=== PATIENT | female | born 1955 | race Caucasian/White ===

== ENCOUNTER 2016-09-30 01:45 | Inpatient (IN) | payer OTHER ==
[2016-09-30] MEDS ORDERED: CARDIZEM IV ONE ×2 (01:57→02:42)
[2016-09-30] MEDS ORDERED: ROCEPHIN 1 GM/NS 50 ML IV ONE ×2 (01:57→02:43)
[2016-09-30] MEDS ORDERED: SOLU-MEDROL IV ONE (01:57)
[2016-09-30] MEDS ORDERED: ASPIRIN PO STA (01:58)
--- NOTE | 2016-09-30 01:58 | PROVIDER DOCUMENTATION ---
HPI-Respiratory General - General Chief Complaint: Shortness of Breath Stated Complaint: shortness of breath Time Seen by Provider: 09/30/16 01:45 Source: patient Allergies/Adverse Reactions: Patient Allergies Allergy/AdvReac Type Severity Reaction Status Date / Time morphine Allergy Intermediate NAUSEA/VOMI Verified 09/30/16 01:50 TING Penicillins Allergy Intermediate ITCHING Verified 09/30/16 01:50 doxycycline Allergy Unknown Unknown Verified 09/30/16 01:50 codeine [Codeine] Allergy ITCHING Verified 09/30/16 01:50 levofloxacin [From Levaquin] Allergy ITCHING Verified 09/30/16 01:50 Home Medications: Home Medication List Medication Instructions Recorded Confirmed Last Taken Type Alprazolam 0.5 mg PO BID PRN 12/29/15 08/01/16 08/01/16 History Diltiazem HCl [Cartia Xt] 240 mg PO DAILY 12/29/15 08/01/16 08/01/16 History Esomeprazole Magnesium [Nexium] 40 mg PO DAILY 12/29/15 08/01/16 08/01/16 History Fluticasone/Vilanterol [Breo 1 puff PO DAILY 12/29/15 08/01/16 08/01/16 History Ellipta 100-25 Mcg INH] Hydrocodone/Acetaminophen [[place] 1 each PO Q4-6H PRN PRN 12/29/15 08/01/1608/01 History 5-325 Tablet] Montelukast Sodium [Singulair] 10 mg PO HS 12/29/15 08/01/16 07/31/16 History PRAVAstatin [Pravachol] 20 mg PO QHS 12/29/15 08/01/16 07/31/16 History Sennosides [Senokot] 8.6 mg PO HS 12/29/15 08/01/16 07/31/16 History Budesonide/Formoterol Fumarate 10.2 gm IH BID 08/01/16 08/01/16 08/01/16 History [Symbicort 160-4.5 Mcg Inhaler] Cetirizine HCl [Zyrtec] 10 mg PO QAM 08/01/16 08/01/16 08/01/16 History Lisinopril 10 mg PO QHS 08/09/16 08/09/16 07/31/16 History Albuterol 2.5MG/Ipratrop 0.5MG 3 ml INH RTQ4H #0 neb 08/10/16 Unknown Rx [Duoneb (A & A)] Azithromycin [Zithromax] 500 mg PO DAILY #5 tablet 08/10/16 Unknown Rx Ergocalciferol (Vitamin D2) 50,000 unit PO Q7D capsule 08/10/16 Unknown Rx [Vitamin D] Furosemide [Lasix] 20 mg PO DAILY #0 tablet 08/10/16 Unknown Rx Prednisone 20 mg PO DIRECTED #60 tablet 08/10/16 Unknown Rx - History of Present Illness-Resp Nature of Presenting Problem: 61 year old F presents to the ED with a cc of shortness of breath and coughx3 days ago. PT states that she has gotten worse the past 24 hours. Severity in ED: reports: moderate Onset/Duration: reports: 3 days ago Timing: reports: still present Current Respiratory Medication Therapy: Initiated see nurses note Associated Symptoms: reports: shortness of breath Similar Symptoms Previously?: Yes Recently seen or treated by another doctor?: No Review of Systems - Adult - REVIEW OF SYSTEMS - ADULT Constitutional: denies: chills, fever Eyes: reports: no symptoms reported Ears, Nose, Mouth & Throat: reports: no symptoms reported Cardiovascular: reports: edema. denies: chest pain, palpitations Respiratory: denies: cough, shortness of breath Gastrointestinal: denies: nausea, vomiting Genitourinary: reports: no symptoms reported Musculoskeletal: reports: no symptoms reported Integumentary: reports: no symptoms reported Neurological: reports: no symptoms reported Psychiatric: reports: no symptoms reported Endocrine: reports: no symptoms reported Hematologic/Lymphatic: reports: no symptoms reported Allergic/Immunologic: reports: no symptoms reported All Other Systems: Reviewed and Negative Past History - Adult - PAST MEDICAL HISTORY-ADULT Review of Records: reports: Nursing Assessment Review, Medications Reviewed Major Childhood Illnesses: reports: denies history Cardiovascular: reports: HTN, hyperlipidemia, PAD Respiratory: reports: asthma, COPD (home 02 @ 3L per NC), sleep apnea Gastrointestinal: reports: denies history Obstetrical/Gynecological: reports: denies history Genitourinary: reports: denies history Musculoskeletal: reports: denies history, arthritis Neurological: reports: denies history Endocrine/Immune: reports: denies history Other Conditions: reports: denies history, MRSA - PRIOR SURGERIES/PROCEDURES Surgical/Procedure History: reports: appendectomy, cholecystectomy, cardiac stent, hysterectomy, - PRIOR HOSPITALIZATIONS Prior Hospitalizations: reports: none - IMMUNIZATION STATUS Childhood Immunizations: UTD Flu Vaccine: See Nurse Assessment - FAMILY HISTORY Family History: reviewed, not pertinent - SOCIAL HISTORY Smoking: quit greater than 1 year Substance Use: none/never Alcohol Use Frequency: never Physical Exam-General - PHYSICAL EXAM-ADULT Initial Vital Signs Reviewed: Yes - CONSTITUTIONAL General Appearance: alert, moderate distress, obese, anxious - RESPIRATORY Respiratory: respiratory distress, decreased breath sounds, wheezing ( generalized) - CARDIOVASCULAR Cardiovascular: normal peripheral pulses, no edema, tachycardia - GASTROINTESTINAL (ABDOMEN) Abdominal Exam: non tender, soft - MUSCULOSKELETAL Extremity: pedal edema (3+ bilateral lower extremity edema to knees) - SKIN Integumentary: normal color, normal turgor, warm/dry - PSYCHIATRIC Psych/Mental Status: normal thought content, normal thought process, oriented x 3, anxious Progress - PLAN OF CARE/RESULTS Progress/Plan/Lab Results: plan of care: imaging, labs, medications Orders Category Date Time Status Admit - [facility] Routine AdmDCTranf 09/30/16 02:52 Ordered Activity - Strict Bedrest ORDERED Care 09/30/16 02:52 Active Call Admitting on Arrival AT ADMISSION Care 09/30/16 02:52 Active Cardiac Monitoring DIRECTED Care 09/30/16 01:58 Active Jimenes Cath Insertion ORDERED Care 09/30/16 02:00 Active Neurological Check Q1h Care 09/30/16 02:52 Active Oxygen Therapy- ED Nursing DIRECTED Care 09/30/16 01:58 Active Saline Loc NOW Care 09/30/16 01:58 Active Vital Signs Order Q15M Care 09/30/16 02:52 Active CHEST-PORTABLE [RAD] Stat Exams 09/30/16 01:59 Taken ABG [RESP] Routine Lab 09/30/16 01:45 Completed BLOOD CULTURE [BLDCUL] Stat Lab 09/30/16 02:41 Ordered CBC WITH ELECTRONIC DIFF [HEME] Stat Lab 09/30/16 01:50 Completed CK PROFILE [SP CHEM] Stat Lab 09/30/16 01:50 Completed COMPREHENSIVE METABOLIC PANEL [CHEM] Stat Lab 09/30/16 01:50 Completed D-DIMER PL [COAG] Stat Lab 09/30/16 01:50 Received LACTATE, PLASMA [CHEM] Stat Lab 09/30/16 01:50 Received MAGNESIUM [CHEM] Stat Lab 09/30/16 01:50 Completed PRO B-NATRIURETIC PEPTIDE Stat Lab 09/30/16 01:50 Completed [address]IME WITH INR PL [COAG] Stat Lab 09/30/16 01:[address] [COAG] Stat Lab 09/30/16 01:50 Received TROPONIN T Stat Lab 09/30/16 01:[address] W/POSS RFLX CULT [URINALYSIS] Stat Lab 09/30/16 02:25 Received 0.9% Sodium Chloride Inj [Ns] 1,000 ml Med 09/30/16 02:42 Discontinued .ROUTE As Directed Acetaminophen [Tylenol] Med 09/30/16 02:42 Discontinued 1,000 mg PO NOW ONE Acetaminophen [Tylenol] Med 09/30/16 02:52 Active 650 mg PO Q6H PRN PRN Aspirin Med 09/30/16 01:58 Discontinued 325 mg PO STAT STA CefTRIAXONE 1 GM/NS [Rocephin 1 gm/Ns] 50 ml Med 09/30/16 01:59 Discontinued .ROUTE As Directed CefTRIAXONE 1 GM/NS [Rocephin 1 gm/Ns] 50 ml Med 09/30/16 01:57 Discontinued IV NOW CefTRIAXONE 1 GM/NS [Rocephin 1 gm/Ns] 50 ml Med 09/30/16 02:43 Active IV NOW Diltiazem 100 mg/Ns [Cardizem 100 mg/Ns] 100 ml Med 09/30/16 02:45 Active IV Per Protocol Diltiazem [Cardizem] Med 09/30/16 02:42 Discontinued 10 mg IV NOW ONE Diltiazem [Cardizem] Med 09/30/16 01:57 Discontinued 15 mg IV NOW ONE Diltiazem [Cardizem] Med 09/30/16 02:00 Discontinued 25 mg .ROUTE .STK-MED ONE Furosemide [Lasix] Med 09/30/16 01:59 Discontinued 40 mg IV NOW ONE Methylprednisolone Sod Succ [Solu-Medrol] Med 09/30/16 01:59 Discontinued 125 mg .ROUTE .STK-MED ONE Methylprednisolone Sod Succ [Solu-Medrol] Med 09/30/16 01:57 Discontinued 125 mg IV NOW ONE Ondansetron [Zofran] Med 09/30/16 02:52 Discontinued 4 mg IV NOW ONE Ondansetron [Zofran] Med 09/30/16 02:52 Active 4 mg IV Q4H PRN PRN BIPAP Stat Oth 09/30/16 02:42 Active Telemetry [OM.EQ] Routine Oth 09/30/16 02:52 Active EKG [EKG] Stat Ther 09/30/16 01:58 Draft Transfer/Admit Order [TRANSFER] Routine Transfer 09/30/16 02:51 Ordered Laboratory Tests 09/30/16 09/30/16 09/30/16 01:45 01:50 01:50 WBC RBC Hgb Hct MCV MCH MCHC RDW Std Deviation Plt Count MPV Immature Gran % (Auto) Neut % (Auto) Lymph % (Auto) Tift % (Auto) Eos % (Auto) Baso % (Auto) Immature Gran # (Auto) Neut # (Auto) Lymph # (Auto) Tift # (Auto) Eos # (Auto) Baso # (Auto) Specimen Type ARTERIAL Sample Site L BRACHIAL pH 7.36 pCO2 48 H pO2 52 L HCO3 25.8 Base Excess 1.3 Oxyhemoglobin 85.9 L* ABG O2 Sat (Calculated) 11.1 L ABG O2 Saturation 89.4 L ABG Carboxyhemoglobin 2.60 H ABG Methemoglobin 1.3 Jame Test NO A-a O2 Difference 173.0 Total Hemoglobin 9.2 L Lactate 1.30 Liter Flow 5.0 Blood Gas Modality CANNULA FiO2 % 40.0 Sodium 147 H Potassium 5.2 H Chloride 104 Carbon Dioxide 25 Anion Gap 18 BUN 24 H Creatinine 1.3 H Estimated GFR/1.73 m2 42 BUN/Creatinine Ratio 18 Glucose 113 H Calculated Osmolality 297 Calcium 10.0 Magnesium 2.1 Total Bilirubin 0.40 AST 42 H ALT 45 H Alkaline Phosphatase 91 Creatine Kinase 107 Troponin T 0.039 Zeg-B-Vkvxizetqom Pept Total Protein 7.0 Albumin 4.7 Globulin 2.0 Albumin/Globulin Ratio 2.0 09/30/16 09/30/16 01:50 01:50 WBC 13.32 H RBC 3.63 L Hgb 9.5 L Hct 33.5 L MCV 92.3 MCH 26.2 L MCHC 28.4 L RDW Std Deviation 22.1 H Plt Count 245 MPV 9.1 Immature Gran % (Auto) 0.4 Neut % (Auto) 71.7 Lymph % (Auto) 16.5 L Tift % (Auto) 10.1 H Eos % (Auto) 1.1 Baso % (Auto) 0.2 Immature Gran # (Auto) 0.05 H Neut # (Auto) 9.57 H Lymph # (Auto) 2.20 Tift # (Auto) 1.34 H Eos # (Auto) 0.14 Baso # (Auto) 0.02 Specimen Type Sample Site pH pCO2 pO2 HCO3 Base Excess Oxyhemoglobin ABG O2 Sat (Calculated) ABG O2 Saturation ABG Carboxyhemoglobin ABG Methemoglobin Jame Test A-a O2 Difference Total Hemoglobin Lactate Liter Flow Blood Gas Modality FiO2 % Sodium Potassium Chloride Carbon Dioxide Anion Gap BUN Creatinine Estimated GFR/1.73 m2 BUN/Creatinine Ratio Glucose Calculated Osmolality Calcium Magnesium Total Bilirubin AST ALT Alkaline Phosphatase Creatine Kinase Troponin T Wjv-C-Ksqaqtqkgya Pept 509 H Total Protein Albumin Globulin Albumin/Globulin Ratio Vital Signs - 24 hr 09/30/16 09/30/16 09/30/16 01:47 01:53 02:36 Temperature 100.8 F H Pulse Rate 152 H 149 H 140 H Respiratory 35 H 22 33 H Rate Blood Pressure 141/69 141/69 107/81 O2 Sat by Pulse 81 L 993 H 100 Oximetry 09/30/16 09/30/16 02:45 02:47 Temperature Pulse Rate 138 H Respiratory 32 H Rate Blood Pressure 92/74 O2 Sat by Pulse 100 93 L Oximetry Pt/Family given results. Pt will be admitted to the Hospitalist Group. PT/ Family in agreement with plan of care. - EKG 1 Time of EKG reading by physician:: 01:46 EKG Read and Signed by:: Bk Corona EKG Interpretation (*Must complete 3 of following elements*): Abnormal Rate: 149 Rhythm: sinus tachycardia QRS: other (low voltage QRS) - XRAY 1 XRAY Study: Chest Impression: Abnormal XRAY Interpretation: COPD changes, early LLL infiltrate: Dr. Corona- [facility] - CONSULTS/PCP/HOSPITALIST Notification #1 *Consult/PCP/Hospitalist*: Dr. Rucker- Hospitalist DMM Time Discussed: 02:47 Consult Disposition: Admit Departure - Departure Time of Disposition Order: 02:56 DIAGNOSIS: Hypoxemia, Tachycardia, COPD exacerbation Pneumonia Qualifiers: Pneumonia type: due to unspecified organism Laterality: left Lung location: lower lobe of lung Qualified Code(s): J18.1 - Lobar pneumonia, unspecified organism Disposition: ADMITTED INPATIENT 09 Certified Medical Emergency: Emergent Condition: Stable Referrals: None,PCP [Primary Care Provider] - Attestation - Scribe Verification/Attestation Scribe:: Lisha Foley Acting as Scribe for:: Bk Corona Scribe documention review:: This chart was documented by a scribe and accurately reflects the service the provider performed and the decisions made by the provider. Physician Attestation - Physician Attestation I, the provider, attest to the following statement:: Bk Corona Physician documentation Attestation:: This documentation recorded by the scribe accurately reflects the service I personally performed and the decisions made by me.
[2016-09-30] MEDS ORDERED: ROCEPHIN 1 GM/NS 50 ML ONE (01:59)
[2016-09-30] MEDS ORDERED: LASIX IV ONE (01:59)
[2016-09-30] MEDS ORDERED: SOLU-MEDROL ONE (01:59)
[2016-09-30] MEDS ORDERED: CARDIZEM ONE (02:00)
[2016-09-30 02:23] LABS: BE 1.3 mmoll (-3.0-3.0); BLOOD TYPE ARTERIAL; DRAW SITE L BRACHIAL; METHB 1.3 % (0.0-1.5); O2(CT) 11.1 mL/dL (15.0-23.0); PCO2(98.6) 48 mmHg (35-45); PO2(98.6) 52 mmHg (60-100); SAMPLE BLOOD; SAO2 89.4 % (95.0-100.0); THB 9.2 g/dL (11.5-17.4); pH(98.6) 7.36 (7.35-7.45)
[2016-09-30 02:29] LABS: ALLEN TEST NO; MODALITY CANNULA
--- NOTE | 2016-09-30 02:31 | EKG Report ---
Test Performed on : 09/30/2016 01:46:13 AM Test Reason : CHEST PAIN Blood Pressure : / mmHG Vent. Rate : 149 BPM Atrial Rate : 149 BPM P-R Int : 134 ms QRS Dur : 070 ms QT Int : 256 ms P-R-T Axes : 039 081 044 degrees QTc Int : 403 ms Sinus tachycardia. Low voltage QRS Septal infarct , age undetermined Abnormal ECG When compared with ECG of 02-AUG-2016 06:22, Vent. rate has increased BY [address] now depressed in Anterior leads Unconfirmed Result
[2016-09-30 02:36] LABS: ALBUMIN 4.7 g/dL (3.5-5.0); MAGNESIUM 2.1 mg/dL (1.5-2.7); POTASSIUM 5.2 mmol/L (3.5-5.1); TOTAL BILIRUBIN 0.4 mg/dL (0.20-1.00)
[2016-09-30 02:39] LABS: BASO% 0.2 % (0.0-0.8); EOS# 0.14 X1000 (0.0-0.7); EOS% 1.1 % (0.0-10.0); HEMATOCRIT 33.5 % (37.0-47.0); HEMOGLOBIN 9.5 g/dL (12.0-16.0); IMM GRAN# 0.05 X1000 (0.0-0.04); IMM GRAN% 0.4 % (0.0-0.5); LYMPH% 16.5 % (20.5-51.1); MCH 26.2 PG (27-31); MCHC 28.4 g/dL (33-37); MCV 92.3 FL (81-99); MONO# 1.34 X1000 (0.11-0.59); MONO% 10.1 % (1.7-9.3); MPV 9.1 FL (7.4-10.4); NEUT% 71.7 % (42.2-75.2); PLT 245 X1000 (130-400); RBC 3.63 XMIL (4.2-5.4)
[2016-09-30 02:40] LABS: MANUAL DIFF NEEDED? NO
[2016-09-30] MEDS ORDERED: NS 2,000 ML ONE (02:42)
[2016-09-30] MEDS ORDERED: TYLENOL PO ONE (02:42)
[2016-09-30] MEDS ORDERED: CARDIZEM 100 MG/NS 100 ML IV SCH (02:45)
[2016-09-30] MEDS ORDERED: ZOFRAN IV ONE (02:52)
[2016-09-30] MEDS ORDERED: ZOFRAN IV PRN (02:52)
[2016-09-30] MEDS ORDERED: TYLENOL PO PRN (02:52)
[2016-09-30 02:55] LABS: URINE SOURCE CATH
[2016-09-30] MEDS ORDERED: NS 500 ML IV ONE (03:01)
[2016-09-30 03:14] LABS: BILIRUBIN URINE NEGATIVE (NEGATIVE); BLOOD URINE 2+ (NEGATIVE); CLARITY CLEAR (CLEAR); COLOR YELLOW; GLUCOSE URINE NEGATIVE (NEGATIVE); LEUKOCYTES URINE TRACE (NEGATIVE); NITRITE URINE NEGATIVE (NEGATIVE); PROTEIN URINE TRACE mg/dL (NEGATIVE); SP GRAVITY URINE 1.005; UROBILINOGEN URINE NORMAL
[2016-09-30 03:15] LABS: URINE CULTURE PL NEEDED? YES; URINE EPITHELIAL CELLS <10 /HPF (<10); URINE WBC <10 /HPF (<10)
[2016-09-30] MEDS ORDERED: NS 1,000 ML IV ONE ×5 (03:32→09:26)
[2016-09-30 03:59] LABS: INR 0.96 (0.86-1.15); PROTIME 13.1 Seconds (12.1-15.5)
[2016-09-30 04:00] LABS: PTT PL 29.2 Seconds (22.6-43.9)
[2016-09-30] MEDS ORDERED: NEO-SYNEPHRINE ONE (05:03)
[2016-09-30] MEDS ORDERED: NS 250 ML ONE (05:03)
[2016-09-30] MEDS ORDERED: NS 1,000 ML ONE (05:06)
[2016-09-30] MEDS ORDERED: LOVENOX 1 MG/KG SUBQ ONE (05:08)
[2016-09-30] MEDS ORDERED: NEO-SYNEPHRINE 50 MG in NS 250 ML IV SCH (05:15)
[2016-09-30] MEDS ORDERED: LOVENOX ONE (05:23)
[2016-09-30] MEDS ORDERED: LOVENOX SUBQ ONE (06:00)
[2016-09-30] MEDS ORDERED: DUONEB (A & A) INH PRN (06:20)
[2016-09-30 06:26] LABS: ALLEN TEST YES; BE -4.4 mmoll (-3.0-3.0); BLOOD TYPE ARTERIAL; DRAW SITE R RADIAL; METHB 1.4 % (0.0-1.5); O2(CT) 10.5 mL/dL (15.0-23.0); PCO2(98.6) 47 mmHg (35-45); PO2(98.6) 77 mmHg (60-100); SAMPLE BLOOD; SAO2 97.1 % (95.0-100.0); THB 7.8 g/dL (11.5-17.4); pH(98.6) 7.28 (7.35-7.45)
[2016-09-30 06:27] LABS: MODALITY BI PAP
[2016-09-30] MEDS ORDERED: MAXIPIME 1 GM/NS 50 ML IV SCH (06:30)
[2016-09-30] MEDS ORDERED: VANCOMYCIN IV PER PHARMACY MISC SCH (06:30)
[2016-09-30] MEDS: DUONEB (A & A) INH SCH ×5 (08:00→22:35)
[2016-09-30] MEDS ORDERED: LOVENOX 1 MG/KG SUBQ SCH (08:15)
[2016-09-30 08:26] LABS: HEMATOCRIT 27.4 % (37.0-47.0); HEMOGLOBIN 7.7 g/dL (12.0-16.0); MCH 26.2 PG (27-31); MCHC 28.1 g/dL (33-37); MCV 93.2 FL (81-99); RBC 2.94 XMIL (4.2-5.4)
[2016-09-30 08:41] LABS: CALCIUM 8.4 mg/dL (8.8-10.2); MAGNESIUM 1.9 mg/dL (1.5-2.7)
[2016-09-30 09:13] LABS: CK INDEX 0.9 (0.0-2.5); CK-MB 2.44 ng/mL (0.0-5.0)
[2016-09-30] MEDS: MERREM 1 GM in NS 50 ML IV SCH ×2 (09:51→17:12)
[2016-09-30] MEDS: SODIUM CHLORIDE 0.9% INJ SCH (09:51)
[2016-09-30] MEDS: SOLU-MEDROL IV SCH ×2 (09:51→17:12)
[2016-09-30] MEDS: PROTONIX IV SCH (09:51)
--- NOTE | 2016-09-30 10:21 | Diag Imaging Result Document ---
PROCEDURE NAME: CHEST-PORTABLE - 09/30/2016 PORTABLE CHEST X-RAY: COMPARISON: 08/10/2016. FINDINGS: There is some minor bibasilar linear atelectasis. Otherwise, no significant infiltrates. Heart size and pulmonary vascularity is grossly normal. IMPRESSION: Minor bibasilar linear atelectasis.
[2016-09-30] MEDS: VANCOMYCIN 1.5 GM in NS 250 ML IV SCH (10:30)
[2016-09-30] MEDS: ZOFRAN IV PRN ×2 (13:48→19:33)
--- NOTE | 2016-09-30 14:04 | HISTORY AND PHYSICAL ---
CHIEF COMPLAINT: Shortness of breath. HISTORY OF PRESENT ILLNESS: Mrs. Mendoza is a 61-year-old, female, well known to our service with a history of COPD and chronic respiratory failure with multiple admissions to our facility with COPD exacerbation, last discharged on 08/10/2016. At that time, she was discharged with a COPD exacerbation and was sent to rehab for 21 days which was approximately 1 week ago when she was discharged from that facility. She states that since that time, she has had increasing shortness of breath and on Sunday of last week she started having cough and subjective chills but no fever. Her shortness of breath worsened to the point where she came to the ER at [facility] early this morning. When she first got to the ER at [facility] she was noted to be quite hypoxic with a heart rate of 152 and a temperature of 100.8 degrees. Initial ABG was consistent with respiratory acidosis and hypoxia. She was placed on BiPAP and during that time she had mild drop in her blood pressure which has required Priyank-Synephrine to maintain adequate perfusion. She has since been transferred to our facility to the ICU where she is currently hemodynamically stable on BiPAP. She complains of shortness of breath but no other real complaints at this time. PAST MEDICAL HISTORY: 1. COPD. 2. Chronic respiratory failure on home O2, 4 L. 3. History of DVT. 4. Peripheral artery disease. 5. Obstructive sleep apnea. 6. Obesity. 7. Hypertension. 8. Hyperlipidemia. PAST SURGICAL HISTORY: Femoral-popliteal bypass, appendectomy, cholecystectomy, hysterectomy, C- section. SOCIAL HISTORY: Patient quit smoking around 3 and half years ago. She denies any current tobacco, alcohol or drug use. Currently lives alone. Was recently discharged from a local rehab facility. FAMILY HISTORY: Noncontributory. ALLERGIES: To morphine, penicillin, doxycycline, codeine and Levaquin. HOME MEDICATIONS: Symbicort 160/4.5 mcg inhaled twice a day. Xanax 0.5 mg p.o. t.i.d. p.r.n. Lisinopril 10 mg p.o. at bedtime. Zyrtec 10 mg p.o. every morning. Cardia XT 240 mg p.o. daily. Buffered aspirin 81 mg at bedtime. Nexium 40 mg daily. Lasix 20 mg p.o. daily. Singulair 10 mg at bedtime. [place] 5 every 4 hours as needed for pain. Prednisone 10 mg daily. Pravachol 20 mg at bedtime. Breo Ellipta 100/25 mcg inhaled daily. Senokot 1 tab at night. REVIEW OF SYSTEMS: A 12 point review of systems obtained and found to be negative with the exception of the HPI. PHYSICAL EXAMINATION: VITAL SIGNS: Blood pressure is 113/60, heart rate is 91, respiratory rate is 22, O2 saturation 100% on BiPAP. Temperature is 97.8. GENERAL: This is a morbidly obese, female, lying in hospital bed in no acute distress. NEUROLOGIC: The patient is somewhat lethargic but opens her eyes to verbal stimulus easily. She follows commands without focal deficits. HEENT: Head atraumatic, normocephalic. Pupils are equal, round, and reactive to light. Oral mucosa is moist. Trachea is midline. CHEST: Diminished with wheezes bilaterally. CV: Regular rate and rhythm. S1, S2 is noted. GI: Soft, nondistended, nontender. Bowel sounds positive. EXTREMITIES: Trace edema. Pulses are palpable. Diminished bilaterally. DIAGNOSTIC DATA: EKG sinus tach without acute ST or T abnormalities. WBC 15.21, hemoglobin 7.7, hematocrit 27.4, platelet count 212,000. PT 13.1, INR 0.96. D-dimer 2.02. ABG on 50% BiPAP, pH 7.28, CO2 47, O2 77. Bicarb 21.3, lactate 0.4. Sodium 143, potassium 5, chloride 108, CO2 20, anion gap 15. BUN 24, creatinine 1.2. Glucose 114. AST 42, ALT 45, CK 265. Troponin negative. ProBNP 509. Protein 7, albumin 4.7, lactate is less than 0.2. UA shows moderate ketones and 2+ blood with trace WBCs and 1+ bacteria. ASSESSMENT AND PLAN: 1. Acute on chronic hypoxic respiratory failure: Likely secondary to COPD exacerbation. I would not rule out PE nor pneumonia. We are going to treat for PE and pneumonia and get a CTA of her chest hopefully later today when her creatinine comes down. In the meantime, we will also treat with steroids, nebulizers and aggressive pulmonary toilet. We will also consult Pulmonology. 2. Chronic obstructive pulmonary disease exacerbation: As above. 3. Healthcare-acquired pneumonia: As above. We will make sure and cover MRSA with vancomycin and other broad-spectrum antibiotics. 4. Sepsis: As above. We will maintain adequate perfusion pressure with vasopressors and IV fluids, her lactic acid is within normal limits. 5. Elevated D-dimer in a patient with a history of deep vein thrombosis: Her creatinine is a little bit high right now to do a CTA. We will hydrate and recheck a BMP at 2 p.m. In the meantime we will continue with aggressive IV fluid hydration, avoid any nephrotoxic medications and go ahead and continue Lovenox that was started in the ER, at 1 mg/kg every 12 hours. 6. Mild renal insufficiency: Continue IV fluids. 7. GI prophylaxis with Protonix. Deep vein thrombosis prophylaxis with Lovenox. 8. Critical care time with this patient is greater than 45 minutes. Dictated by NELLY Powers for Osman Jeffries MD
[2016-09-30 14:29] LABS: CALCIUM 7.5 mg/dL (8.8-10.2); POTASSIUM 5.1 mmol/L (3.5-5.1)
--- NOTE | 2016-09-30 16:18 | ECHO REPORT ---
ORDER DATE: 09/30/2016 INTERPRETING PHYSICIAN: Dr. Santacruz CLINICAL INDICATIONS: [id number]-[id number]-old female. Study was done for evaluation of respiratory failure. M-MODE MEASUREMENTS: Right ventricle: 3.2 cm. Left ventricle end diastole: 5.2 cm. Left ventricle end systole: 3.4 cm. Posterior wall: 0.8 cm. Interventricular septum: 0.8 cm. Left atrium: 3.5 cm. Aortic root: 3.3 cm. SUMMARY OF 2-DIMENSIONAL IMAGING: Left ventricular function is normal, ejection fraction of 64%. Ventricular chamber is not dilated. There is no ventricular hypertrophy. Right ventricle appears to be normal. It could be borderline enlarged. Pulmonic valve looks normal. Color flow mapping indicates mild degree of regurgitation. The inferior vena cava is at the upper limits of normal. Tricuspid valve shows a moderate degree of regurgitation. The pulmonary pressure is estimated at 47 mmHg. Mitral valve shows trace regurgitation. Pulse wave Doppler of mitral inflow shows minimal reversal of the E and the A wave. Tissue Doppler of septal and lateral mitral annulus averages 13 cm. The pulse wave Doppler of pulmonary venous flow is normal. There is no diastolic dysfunction. Aortic valve looks normal. There is no stenosis, no regurgitation. There is no pericardial effusion, masses, or thrombus. SUMMARY: In summary, this study showed: 1. Excellent left ventricular systolic function. 2. No evidence of left ventricular diastolic dysfunction. 3. No evidence of significant valvular abnormality except for mild to moderate degree of tricuspid regurgitation. Pulmonary systolic pressure appears to be elevated at 47 mmHg. 4. No pericardial effusion, masses, or thrombus noted. 5. Clinical correlation is recommended. [facility]
[2016-09-30] MEDS: LOVENOX SUBQ SCH (17:12)
--- NOTE | 2016-09-30 17:57 | CONSULTATION ---
DATE OF CONSULTATION: 09/30/2016 DIAGNOSES: 1. Chronic obstructive pulmonary disease stage IV. 2. Obstructive sleep apnea. 3. Morbid obesity. 4. Dehydration. 5. Pulmonary hypertension. 6. Respiratory failure. RECOMMENDATIONS: She will be placed on Proventil and Atrovent bronchodilators. Agree with the broad-spectrum antibiotics. I agree with the Lovenox. I will try to obtain a CT angiogram at a more opportune time when the respiratory status is stable. We will follow closely along with you. HISTORY: This very unfortunate 61-year-old female has a significant known history of COPD, peripheral vascular disease. She presented to our emergency room with the onset of wheezing, cough, shortness of breath and she developed respiratory failure. Subsequent to this, she is placed in the ICU on BiPAP and I was consulted to assist in her care. PAST MEDICAL HISTORY: Is positive for COPD, chronic respiratory failure, DVT, morbid obesity, hypertension as well as peripheral vascular disease. SOCIALLY: She is a smoker of approximately 40 pack year history having quit approximately 3 years ago. She lives alone. FAMILY HISTORY: Positive for ischemic heart disease in her father. Hypertension in her mother. REVIEW OF SYSTEMS: Except for the features mentioned above are negative for weight loss, night sweats, weakness or anorexia. No ENT symptoms of odynophagia, dysphagia, epistaxis or painful swallowing. No eye symptoms of blindness, blurring or diplopia. No other cardiac or pulmonary symptoms other than mentioned. No nausea, vomiting, constipation, diarrhea. No hematuria, polyuria, nocturia, dysuria. No joint or muscle pain, stiffness, swelling. No skin rashes, itching, bruises. No seizures, loss of consciousness or paralysis except features mentioned above. All of the symptoms on the review of systems are negative. PHYSICAL EXAM: Shows a blood pressure of 116/66 with a pulse 79, respirations 20, temp 97.2 degrees.HEENT: Exam reveals no thyromegaly or adenopathy. Pupils are equal and reactive. Extraocular muscles are intact. Neck: Supple. No bruits. No thyromegaly. No JVD. Chest: Reveals bilateral equal breath sounds with rhonchi and crackles. There are symmetrical excursions. Cardiac Exam: Reveals a regular rhythm. Abdomen: Soft. Skin: Warm and dry. There is 2+ edema. Neurologically: Grossly nonfocal. LABORATORY DATA: The sodium is 149, potassium 5.1, chloride 111, CO2 22, BUN 24, creatinine 1.4, [place] [address], hemoglobin 7.7, hematocrit of 27.4, and platelets of 212,000. The ABG is 7.28 pH, 47 CO2 and a 77 O2.
[2016-09-30 18:26] LABS: CK INDEX 0.7 (0.0-2.5); CK-MB 3.35 ng/mL (0.0-5.0)
[2016-09-30] MEDS: NORCO-5 PO PRN (21:29)
[2016-10-01] MEDS: MERREM 1 GM in NS 50 ML IV SCH ×3 (02:00→16:38)
[2016-10-01] MEDS: SOLU-MEDROL IV SCH ×3 (02:16→17:13)
[2016-10-01] MEDS: DUONEB (A & A) INH SCH ×6 (02:30→23:25)
[2016-10-01 03:05] LABS: CK INDEX 0.7 (0.0-2.5); CK-MB 3.66 ng/mL (0.0-5.0)
[2016-10-01] MEDS: NORCO-5 PO PRN ×3 (03:59→16:37)
[2016-10-01 04:25] LABS: ALLEN TEST YES; BLOOD TYPE ARTERIAL; DRAW SITE R RADIAL; METHB 0.8 % (0.0-1.5); O2(CT) 10.7 mL/dL (15.0-23.0); PO2(98.6) 94 mmHg (60-100); SAMPLE BLOOD; SAO2 99.1 % (95.0-100.0); THB 7.7 g/dL (11.5-17.4); pH(98.6) 7.26 (7.35-7.45)
[2016-10-01 04:26] LABS: MODALITY BI PAP; PCO2(98.6) 51 mmHg (35-45)
[2016-10-01] MEDS: LOVENOX SUBQ SCH (05:35)
[2016-10-01 06:18] LABS: HEMATOCRIT 27.9 % (37.0-47.0); MCH 26.7 PG (27-31); MCHC 28.7 g/dL (33-37); MPV 9.8 FL (7.4-10.4)
[2016-10-01 06:27] LABS: AGAP 20; BUN 23 mg/dL (8-22); CHLORIDE 111 mmol/L (98-107); COSMO 297; POTASSIUM 5.4 mmol/L (3.5-5.1); SODIUM 148 mmol/L (136-145); TCO2 17 mmol/L (25-35)
[2016-10-01] MEDS: ZOFRAN IV PRN ×3 (06:45→20:54)
[2016-10-01] MEDS ORDERED: POTASSIUM PHOSPHATE 21 MMOL in NS 250 ML IV ONE (08:01)
[2016-10-01] MEDS: PROTONIX IV SCH (08:20)
[2016-10-01] MEDS: SODIUM CHLORIDE 0.9% INJ SCH (08:20)
[2016-10-01] MEDS ORDERED: NS 1,000 ML IV SCH (08:45)
[2016-10-01] MEDS: XANAX PO PRN ×2 (09:18→20:54)
--- NOTE | 2016-10-01 09:45 | Diag Imaging Result Document ---
PROCEDURE NAME: ANGIOGRAM/PULMONARY ARTERIES - 10/01/2016 CT PULMONARY ANGIOGRAM WITH INTRAVENOUS CONTRAST, 10/01/2016: COMPARISON: Numerous prior chest x-rays. TECHNIQUE: Axial CT images of the chest were obtained after administering intravenous contrast. Coronal MIP images were generated. FINDINGS: There is no evidence of pulmonary embolism. Heart and great vessels are normal. Upper abdominal images are unremarkable. There is severely advanced COPD. There is some trace patchy atelectasis or scarring in the lung bases particularly in the right lower lobe. Heavy degenerative changes of the spine. No acute bony lesions. IMPRESSION: Severe COPD with some mild pulmonary scarring. No definite acute disease.
--- NOTE | 2016-10-01 11:31 | Diag Imaging Result Document ---
PROCEDURE NAME: CHEST-PORTABLE - 10/01/2016 PORTABLE CHEST X-RAY, 10/01/2016: COMPARISON: 09/30/2016. FINDINGS: There is some patchy atelectasis or scarring in the lung bases. No definite infiltrates. Heart size and pulmonary vascularity is normal. IMPRESSION: No change from prior.
--- NOTE | 2016-10-01 11:58 | PROGRESS NOTE ---
DATE: 10/01/2016 SUBJECTIVE: This patient states that she is feeling much better. She is hungry and we started this patient on a clear liquid diet for now. We will advance the diet if she tolerates this. She is not complaining of shortness of breath at this moment. We will continue monitoring in the ICU for at least 1 more day. OBJECTIVE: Vital Signs: Temperature 97.1 degrees, pulse 113, respiratory rate 26, blood pressure 109/64, oxygen saturation 98 on 40% Venturi mask. HEENT: Head normocephalic. No trauma. PERRLA. Neck: Supple. No JVD. No masses. Central trachea. Cardiovascular: RRR. No murmurs. Tachycardic. Chest: Bilateral scattered rhonchi with bilateral expiratory wheezing. Prolonged expiatory phase. Decreased air entry globally. Abdomen: Soft, nontender, nondistended. No hepatosplenomegaly. Obese. Extremities: Trace edema. No clubbing. No cyanosis. Neurological: The patient is alert and oriented x3. No focal neurological deficits. LABORATORY: WBC 11.5, hemoglobin 8, hematocrit 27.9, platelets 157,000. Sodium 148, potassium 5.4, chloride 111, bicarbonate 17, BUN 23, creatinine 0.9, glucose 80, calcium 8. Troponins negative x2. ASSESSMENT AND PLAN: 1. Acute on chronic respiratory failure, likely secondary to chronic obstructive pulmonary disease exacerbation. We are going to rule out pulmonary embolism. Pending CT angiogram. That probably will be done today. We will hydrate this patient before and after the CT angiogram. I will continue with the same treatment right now. She is on steroids, nebulizers, and aggressive pulmonary toilet. Pulmonary department is following this patient. 2. Chronic obstructive pulmonary disease exacerbation. As above. 3. Healthcare-acquired pneumonia. We will continue with broad spectrum antibiotics. This patient is getting better. 4. Sepsis, likely secondary to infectious process. This patient is not on pressors at this moment. I will continue IV fluids for now. Just get the CT of the chest. We will continue to monitor. 5. Elevated D-dimer in a patient with a history of deep vein thrombosis. The creatinine is normal today. We will get the CT angiogram. This patient is already on Lovenox twice a day. Pulmonary department is following this patient. 6. Acute kidney injury, resolved. 7. Gastrointestinal prophylaxis. Continue Protonix. Deep vein thrombosis prophylaxis. This patient is on Lovenox. CRITICAL CARE TIME: 40 minutes.
[2016-10-01] MEDS: HUMULIN R SUBQ SCH ×2 (15:17→20:52)
[2016-10-01] MEDS: VANCOMYCIN 1.5 GM in NS 250 ML IV SCH (21:00)
[2016-10-02] MEDS: MERREM 1 GM in NS 50 ML IV SCH ×3 (01:07→18:07)
[2016-10-02] MEDS: NORCO-5 PO PRN ×3 (01:07→15:25)
[2016-10-02] MEDS: SOLU-MEDROL IV SCH ×3 (01:08→18:07)
[2016-10-02] MEDS: DUONEB (A & A) INH SCH ×6 (03:25→23:17)
[2016-10-02 04:46] LABS: ALLEN TEST YES; BLOOD TYPE ARTERIAL; DRAW SITE R RADIAL; METHB 1.5 % (0.0-1.5); O2(CT) 11.5 mL/dL (15.0-23.0); PO2(98.6) 122 mmHg (60-100); SAMPLE BLOOD; SAO2 98.8 % (95.0-100.0); SRATE 10 BPM; THB 8.3 g/dL (11.5-17.4)
[2016-10-02 04:47] LABS: MODALITY BI PAP; PCO2(98.6) 52 mmHg (35-45)
[2016-10-02] MEDS: ZOFRAN IV PRN ×2 (04:53→19:45)
[2016-10-02 05:42] LABS: HEMOGLOBIN 7.7 g/dL (12.0-16.0); MCH 26.8 PG (27-31); MCHC 28.5 g/dL (33-37); MCV 94.1 FL (81-99); MPV 9.2 FL (7.4-10.4); RBC 2.87 XMIL (4.2-5.4)
[2016-10-02 06:00] LABS: AGAP 14; BUN 19 mg/dL (8-22); CALCIUM 8.2 mg/dL (8.8-10.2); CHLORIDE 110 mmol/L (98-107); COSMO 295; SODIUM 146 mmol/L (136-145); TCO2 22 mmol/L (25-35)
[2016-10-02] MEDS: HUMULIN R SUBQ SCH ×4 (06:25→20:57)
--- NOTE | 2016-10-02 07:44 | Diag Imaging Result Document ---
PROCEDURE NAME: CHEST-PORTABLE - 10/02/2016 AP PORTABLE CHEST AT 0500 HOURS: FINDINGS: There is atelectasis in both lung bases. The heart size is at the upper limits of normal. Compared to 10/01/2016 there is slight more atelectasis in the lingula. IMPRESSION: Bibasilar atelectasis.
[2016-10-02] MEDS: SODIUM CHLORIDE 0.9% INJ SCH (08:03)
[2016-10-02] MEDS: LOVENOX SUBQ SCH (08:03)
[2016-10-02] MEDS: PROTONIX IV SCH (08:03)
--- NOTE | 2016-10-02 11:59 | PROGRESS NOTE ---
DATE: 10/02/2016 SUBJECTIVE: This patient states that she is feeling about the same. I will advance the diet. She is tolerating diet, she has been coughing, she is not complaining of shortness of breath at this moment. We will continue to monitor this patient in the ICU, pulmonary department is following this patient. OBJECTIVE: Vital Signs: Temperature 97.4 degrees, pulse 94, respiratory rate 21, blood pressure 121/60, O2 saturation 98% on a Venturi mask 40% oxygen flow. HEENT: Head normocephalic. No trauma. PERRLA. Neck: Supple. No JVD. No masses. Central trachea. Cardiovascular: RRR. No murmurs. Chest: Bilateral scattered rhonchi, bilateral expiratory and scattered bilateral respiratory wheezing. Prolonged expiratory phase. Decreased air entry globally. Abdomen: Soft, nontender, nondistended. No hepatosplenomegaly. Obese. Extremities: Trace edema. No clubbing. No cyanosis. Neurological: The patient is alert and oriented x3. No focal deficits. LABORATORY DATA: WBC 7.4, hemoglobin 7.7, hematocrit 27, platelet 198,000. Sodium 146, potassium 5, chloride 110, bicarbonate 22, BUN 19, creatinine 0.8, glucose 133, calcium 8.2. ASSESSMENT AND PLAN: 1. Acute on chronic respiratory failure likely secondary to chronic obstructive pulmonary disease exacerbation. Pulmonary embolism was ruled out. We had a CT angiogram that did not show any embolism. We will continue with the respiratory treatment, I will decrease the dose of steroids from 60 t.i.d. to 40 t.i.d. I will continue with aggressive pulmonary toilet and nebulizers. 2. Chronic obstructive pulmonary disease exacerbation. As above, pulmonary department is following this patient. Continue to monitor. 3. Healthcare acquired pneumonia. We will continue with broad spectrum antibiotics. This patient is getting better. 4. Sepsis likely secondary to pneumonia. The patient is not on pressors at this moment. I will continue with the same management now. 5. Elevated D-dimer in a patient with a history of deep venous thrombosis. The CT angiogram is negative. I put this patient on Lovenox once a day instead of twice a day. 6. Acute kidney injury, resolved. 7. Gastrointestinal prophylaxis. Continue with Protonix. 8. Deep venous thrombosis prophylaxis. Continue with Lovenox.
[2016-10-02] MEDS: XANAX PO PRN ×2 (12:38→23:25)
[2016-10-02] MEDS ORDERED: SODIUM BICARBONATE 8.4% 100 MEQ in D5W 1,000 ML IV SCH (19:30)
[2016-10-02] MEDS ORDERED: LASIX IV ONE (23:00)
[2016-10-03] MEDS: SOLU-MEDROL IV SCH ×3 (01:31→16:15)
[2016-10-03] MEDS: MERREM 1 GM in NS 50 ML IV SCH ×3 (01:32→16:15)
[2016-10-03] MEDS: DUONEB (A & A) INH SCH ×6 (04:00→23:26)
[2016-10-03] MEDS: NORCO-5 PO PRN ×3 (04:04→21:41)
[2016-10-03 04:39] LABS: ALLEN TEST YES; BE 10.1 mmoll (-3.0-3.0); BLOOD TYPE ARTERIAL; DRAW SITE R RADIAL; PO2(98.6) 102 mmHg (60-100); SAMPLE BLOOD; pH(98.6) 7.43 (7.35-7.45)
[2016-10-03 04:41] LABS: MODALITY BI PAP; PCO2(98.6) 55 mmHg (35-45)
[2016-10-03] MEDS: HUMULIN R SUBQ SCH ×4 (06:09→20:42)
[2016-10-03 06:13] LABS: BASO% 0.1 % (0.0-0.8); EOS# 0.21 X1000 (0.0-0.7); HEMATOCRIT 26.8 % (37.0-47.0); HEMOGLOBIN 7.6 g/dL (12.0-16.0); IMM GRAN# 0.05 X1000 (0.0-0.04); IMM GRAN% 0.7 % (0.0-0.5); LYMPH# 0.37 X1000 (1.2-3.4); LYMPH% 5.3 % (20.5-51.1); MANUAL DIFF NEEDED? YES; MCHC 28.4 g/dL (33-37); MCV 91.8 FL (81-99); MONO# 0.29 X1000 (0.11-0.59); MONO% 4.1 % (1.7-9.3); MPV 10.1 FL (7.4-10.4); NEUT% 86.8 % (42.2-75.2); PLT 137 X1000 (130-400); RBC 2.92 XMIL (4.2-5.4)
[2016-10-03 06:15] LABS: MAGNESIUM 2.1 mg/dL (1.5-2.7)
[2016-10-03 06:22] LABS: AGAP 8; BUN 19 mg/dL (8-22); CALCIUM 8.4 mg/dL (8.8-10.2); CHLORIDE 105 mmol/L (98-107); COSMO 298; POTASSIUM 4.3 mmol/L (3.5-5.1); SODIUM 145 mmol/L (136-145); TCO2 32 mmol/L (25-35)
[2016-10-03 06:47] LABS: BANDS 4 % (0-1); LYMPHS 4 % (21-51); MONO 16 % (1-9); NRBC 3 % (0-0)
[2016-10-03 06:48] LABS: HYPOCHROM OCCASIONAL
[2016-10-03] MEDS: PROTONIX IV SCH (09:02)
[2016-10-03] MEDS: LOVENOX SUBQ SCH (09:02)
[2016-10-03] MEDS: SODIUM CHLORIDE 0.9% INJ SCH (09:02)
[2016-10-03] MEDS: NEUTRA-PHOS PO SCH ×2 (10:34→16:14)
[2016-10-03] MEDS: LASIX IV SCH ×2 (10:34→16:15)
[2016-10-03] MEDS: VANCOMYCIN 1.5 GM in NS 250 ML IV SCH (10:34)
[2016-10-03] MEDS: XANAX PO PRN (12:26)
[2016-10-03] MEDS ORDERED: POTASSIUM PHOSPHATE 21 MMOL in NS 250 ML IV ONE (13:19)
--- NOTE | 2016-10-03 14:13 | PROGRESS NOTE ---
DATE: 10/03/2016 SUBJECTIVE: This patient states that she is feeling about the same. She is tolerating a diet, but she is still coughing. She is still complaining of shortness of breath, but compared with admission, she is much better. Pulmonary department is following this patient, and we will follow their recommendations. OBJECTIVE: Vital Signs: Temperature 97.1 degrees, pulse 102, respiratory rate 18, blood pressure 133/57, and O2 saturation 100% on 50% oxygen flow Venturi mask. HEENT: Head normocephalic. No trauma. PERRLA. Neck: Supple. No JVD. No masses. Central trachea. Cardiovascular: RRR. No murmurs. Chest: Bilaterally scattered rhonchi, bilaterally scattered expiatory wheezing, prolonged expiatory phase, decreased air entry globally. Abdomen: Soft, nontender, nondistended. No hepatosplenomegaly. Obese. Extremities: No edema. No clubbing. No cyanosis. Neurological: The patient is alert and oriented x3. No focal deficits. LABORATORY DATA: WBC 7, hemoglobin 7.6, hematocrit 26.8, platelets 137,000. Sodium 145, potassium 4.3, chloride 105, bicarbonate 32, BUN 19, creatinine 0.9, glucose 229, calcium 8.4, phosphorus 1, magnesium 2.1. ASSESSMENT AND PLAN: 1. Acute on chronic respiratory failure, likely secondary to chronic obstructive pulmonary disease exacerbation. Pulmonary embolism has been ruled out. We will continue with respiratory treatment. The dose of steroids was decreased yesterday from 60 t.i.d. to 40 t.i.d. This patient is still wheezing. We will continue with the same dose and aggressive pulmonary toilet and nebulizers, also oxygen. 2. Chronic obstructive pulmonary disease exacerbation. As above, pulmonary department is following this patient. Continue to monitor. 3. Hypophosphatemia. I will replace the phosphorus. 4. Healthcare-associated pneumonia. We will continue with broad-spectrum antibiotics. This patient is getting better. 5. Sepsis secondary to pneumonia, stable. This patient is not on pressors at this moment. We will continue with the same management. Right now this condition has resolved. 6. Elevated D-dimer in a patient with a history of DVT. CT angiogram of the chest was negative. This patient is on Lovenox once a day. 7. Acute kidney injury, resolved. 8. Gastrointestinal prophylaxis. Continue with Protonix. 9. Deep vein thrombosis prophylaxis. Continue with Lovenox. CRITICAL CARE TIME: The critical care time was 35 minutes.
[2016-10-04] MEDS: SOLU-MEDROL IV SCH ×3 (01:13→16:51)
[2016-10-04] MEDS: MERREM 1 GM in NS 50 ML IV SCH ×3 (01:13→16:49)
[2016-10-04] MEDS: DUONEB (A & A) INH SCH ×6 (03:42→23:24)
[2016-10-04 05:24] LABS: ALLEN TEST YES; BE 18.9 mmoll (-3.0-3.0); BLOOD TYPE ARTERIAL; DRAW SITE R RADIAL; O2(CT) 10.1 mL/dL (15.0-23.0); PO2(98.6) 130 mmHg (60-100); SAMPLE BLOOD; SAO2 99.8 % (95.0-100.0); THB 7.2 g/dL (11.5-17.4)
[2016-10-04 05:26] LABS: MODALITY VENTILATOR; PCO2(98.6) 74 mmHg (35-45)
[2016-10-04 06:14] LABS: BASO% 0.9 % (0.0-0.8); HEMATOCRIT 26.3 % (37.0-47.0); HEMOGLOBIN 7.6 g/dL (12.0-16.0); IMM GRAN# 0.06 X1000 (0.0-0.04); IMM GRAN% 1.4 % (0.0-0.5); LYMPH# 0.43 X1000 (1.2-3.4); LYMPH% 9.8 % (20.5-51.1); MANUAL DIFF NEEDED? YES; MCH 26.5 PG (27-31); MCHC 28.9 g/dL (33-37); MCV 91.6 FL (81-99); MONO# 0.25 X1000 (0.11-0.59); MONO% 5.7 % (1.7-9.3); MPV 9.4 FL (7.4-10.4); NEUT% 82.2 % (42.2-75.2); PLT 181 X1000 (130-400); RBC 2.87 XMIL (4.2-5.4)
[2016-10-04 06:18] LABS: AGAP 10; ALBUMIN 3.3 g/dL (3.5-5.0); ALKALINE PHOSPHATASE 70 U/L (32-104); BUN 22 mg/dL (8-22); CALCIUM 8.4 mg/dL (8.8-10.2); CHLORIDE 103 mmol/L (98-107); COSMO 300; GOT 61 U/L (10-30); GPT 151 U/L (10-36); MAGNESIUM 2.2 mg/dL (1.5-2.7); POTASSIUM 4.3 mmol/L (3.5-5.1); SODIUM 148 mmol/L (136-145); TCO2 35 mmol/L (25-35); TOTAL BILIRUBIN 0.19 mg/dL (0.20-1.00); TOTAL PROTEIN 5.6 g/dL (6.3-8.3)
[2016-10-04] MEDS: HUMULIN R SUBQ SCH ×4 (06:20→20:05)
[2016-10-04] MEDS: NORCO-5 PO PRN ×3 (06:25→21:02)
[2016-10-04 06:47] LABS: BANDS 2 % (0-1); HYPOCHROM 2+; LYMPHS 12 % (21-51); NRBC 1 % (0-0)
--- NOTE | 2016-10-04 07:35 | Diag Imaging Result Document ---
PROCEDURE NAME: CHEST-PORTABLE - 10/04/2016 SINGLE FRONTAL RADIOGRAPH OF THE CHEST: COMPARISON: 10/02/2016. FINDINGS: Atelectasis appears to have improved slightly at the lung bases. There are no new consolidations. Cardiac silhouette is stable. IMPRESSION: Slight improvement of mild atelectasis at the lung bases.
[2016-10-04] MEDS: PROTONIX IV SCH (08:18)
[2016-10-04] MEDS: SODIUM CHLORIDE 0.9% INJ SCH (08:18)
[2016-10-04] MEDS: LOVENOX SUBQ SCH (08:18)
[2016-10-04] MEDS: XANAX PO PRN (11:57)
--- NOTE | 2016-10-04 14:23 | PROGRESS NOTE ---
DATE: 10/04/2016 SUBJECTIVE: This patient looks better today. She is tolerating diet. She is not complaining of shortness of breath, pulmonary department is following this patient. I will continue following the recommendations. OBJECTIVE: Temperature 97.3 degrees, pulse 102, respiratory rate 21, blood pressure 148/85, oxygen saturation 96 on a Venturi mask at 40% oxygen flow.HEENT: Head normocephalic. No trauma. PERRLA. Neck: Supple. No JVD. No masses. Central trachea. Cardiovascular: RRR. No murmurs. Chest: Bilateral scattered rhonchi, and also bilateral scattered expiratory wheezing, prolonged expiatory phase. Decreased air entry globally. Abdomen: Soft, nontender, nondistended. No hepatosplenomegaly. Obese. Extremities: No edema. No clubbing. No cyanosis. Neurological: The patient is alert and oriented x3. No focal deficits. LABORATORY: WBC 4.4, hemoglobin 7.6, hematocrit 26.3, platelets 181,000. Sodium 148, potassium 4.3, chloride 103, bicarbonate 35, BUN 22, creatinine 0.8, glucose 146, calcium 8.4, phosphorus 2.5, AST 61, ALT 151. Alkaline phosphatase 70, albumin 3.3. ASSESSMENT AND PLAN: 1. Acute on chronic respiratory failure, this is getting better, likely secondary to COPD exacerbation. Pulmonary embolism has been ruled out. We will continue with respiratory treatment. I will decrease the dose of the steroids from 40 IV t.i.d. to 40 IV b.i.d. Will continue also with pulmonary toilet, nebulizer and oxygen. 2. COPD exacerbation, pulmonary department is on board. I will continue the steroids, oxygen and breathing treatment. 3. Healthcare associated pneumonia. Continue with broad spectrum antibiotics. This patient is getting better. 4. Sepsis, likely secondary to pneumonia, resolved. This patient is not on pressors, the blood pressure has been stable. 5. Elevated D-dimer in a patient with a history of DVT, CT angiogram of the chest was negative. This patient will continue on Lovenox once a day. 6. Acute kidney injury. Resolved. 7. GI prophylaxis, continue with Protonix. 8. DVT prophylaxis. Continue with Lovenox.
[2016-10-04] MEDS: VANCOMYCIN 1.5 GM in NS 250 ML IV SCH (22:25)
[2016-10-05] MEDS: SOLU-MEDROL IV SCH ×3 (00:05→17:03)
[2016-10-05] MEDS: MERREM 1 GM in NS 50 ML IV SCH ×3 (00:05→17:03)
[2016-10-05] MEDS: XANAX PO PRN ×3 (02:23→20:30)
[2016-10-05] MEDS: DUONEB (A & A) INH SCH ×6 (03:08→23:25)
[2016-10-05 05:29] LABS: BASO% 0.7 % (0.0-0.8); EOS# 0.01 X1000 (0.0-0.7); EOS% 0.2 % (0.0-10.0); HEMATOCRIT 27.4 % (37.0-47.0); HEMOGLOBIN 7.8 g/dL (12.0-16.0); IMM GRAN% 1.8 % (0.0-0.5); LYMPH# 0.72 X1000 (1.2-3.4); LYMPH% 12.9 % (20.5-51.1); MANUAL DIFF NEEDED? YES; MCH 26.2 PG (27-31); MCHC 28.5 g/dL (33-37); MCV 91.9 FL (81-99); MONO# 0.28 X1000 (0.11-0.59); MPV 9.7 FL (7.4-10.4); NEUT% 79.4 % (42.2-75.2); PLT 183 X1000 (130-400); RBC 2.98 XMIL (4.2-5.4)
[2016-10-05 06:17] LABS: AGAP 7; BUN 24 mg/dL (8-22); CALCIUM 8.4 mg/dL (8.8-10.2); CHLORIDE 101 mmol/L (98-107); COSMO 297; POTASSIUM 4.5 mmol/L (3.5-5.1); SODIUM 146 mmol/L (136-145); TCO2 38 mmol/L (25-35)
[2016-10-05] MEDS: HUMULIN R SUBQ SCH ×4 (06:25→20:52)
[2016-10-05 07:32] LABS: BANDS 2 % (0-1); LYMPHS 7 % (21-51); MONO 7 % (1-9); NRBC 2 % (0-0)
[2016-10-05] MEDS: CARDIZEM CD PO SCH (08:40)
[2016-10-05] MEDS: PROTONIX IV SCH (08:40)
[2016-10-05] MEDS: LOVENOX SUBQ SCH (08:40)
[2016-10-05] MEDS: SODIUM CHLORIDE 0.9% INJ SCH (08:40)
--- NOTE | 2016-10-05 12:02 | PROGRESS NOTE ---
DATE: 10/05/2016 SUBJECTIVE: This patient is complaining of shortness of breath today. She has been refusing the BiPAP treatment. She is tolerating diet. She is not complaining of chest pain. Physical therapy has been consulted. OBJECTIVE: Vital Signs: Temperature 96.7 degrees, pulse 96, respiratory rate 27, blood pressure 170/100, oxygen saturation 98 on a Venturi mask. HEENT: Head normocephalic. No trauma. PERRLA. Neck: Supple. No JVD. No masses. Central trachea. Cardiovascular: RRR. No murmurs. Chest: Bilateral scattered rhonchi and expiatory wheezing, prolonged expiatory phase, decreased air entry globally. Abdomen: Soft, obese, nontender, nondistended. No hepatosplenomegaly. Extremities: No edema. No clubbing. No cyanosis. Neurological Examination: The patient is alert. She is oriented x3. No focal motor deficits. Laboratory: WBC 5.5, hemoglobin 7.8, hematocrit 27.4, platelets 183,000. Sodium 146, potassium 4.5, chloride 101, bicarbonate 38, BUN 24, creatinine 0.7, glucose 139, calcium 8.4. ASSESSMENT AND PLAN: 1. Acute on chronic respiratory failure. This patient today is complaining of shortness of breath. She is refusing the BiPAP machine. I talked to her and apparently she will use the BiPAP machine from now on if she needs that. I will continue with the same dose of steroids 40 intravenous twice a day. I will continue also with the nebulization, oxygen, and pulmonary toilet. 2. Chronic obstructive pulmonary disease exacerbation. Pulmonary department is on board. I will continue with steroids, oxygen, and breathing treatment. Today, I consulted physical therapy department to start range of motion on this patient and probably see this patient up in a chair. 3. Healthcare-associated pneumonia. She is on broad-spectrum antibiotics. This patient is not having any fever or chills. The white count is normal. Continue to monitor. 4. Sepsis. Upon admission, this patient was placed on pressors. She is not on pressors at this moment. The blood pressure has been elevated. 5. Hypertension. I will put this patient on her home medications. She is on diltiazem 240 mg by mouth daily and she is also at home on lisinopril. I will start her on a lower dose to see how she does. The kidney function is stable, normal. 6. Anemia. This is chronic and stable. I will ask for an anemia workup and I will ask for occult blood in the stool. 7. Elevated D-dimer in a patient with a history of deep venous thrombosis. CT angiogram of the chest was negative. This patient will continue on Lovenox once a day. 8. Acute kidney injury, resolved. 9. Gastrointestinal prophylaxis. Continue with Protonix. 10. Deep venous thrombosis prophylaxis. Continue with Lovenox.
[2016-10-05] MEDS: APRESOLINE IV PRN (12:53)
[2016-10-05] MEDS: NORCO-5 PO PRN (18:37)
[2016-10-05] MEDS: APRESOLINE PO SCH (20:51)
[2016-10-05] MEDS ORDERED: HALDOL IM ONE (21:33)
[2016-10-05] MEDS ORDERED: VANCOMYCIN 1.5 GM in NS 250 ML IV SCH (22:00)
[2016-10-05 22:01] LABS: ALLEN TEST YES; BE 20.8 mmoll (-3.0-3.0); BLOOD TYPE ARTERIAL; DRAW SITE R RADIAL; METHB 1.8 % (0.0-1.5); O2(CT) 12.1 mL/dL (15.0-23.0); PO2(98.6) 61 mmHg (60-100); SAMPLE BLOOD; SAO2 95.3 % (95.0-100.0); THB 9.3 g/dL (11.5-17.4); pH(98.6) 7.53 (7.35-7.45)
[2016-10-05 22:02] LABS: MODALITY BI PAP; PCO2(98.6) 55 mmHg (35-45)
[2016-10-06] MEDS: MERREM 1 GM in NS 50 ML IV SCH ×4 (00:57→17:24)
[2016-10-06] MEDS: SOLU-MEDROL IV SCH ×3 (00:59→17:24)
[2016-10-06] MEDS: DUONEB (A & A) INH SCH ×6 (03:35→23:15)
[2016-10-06] MEDS: NORCO-5 PO PRN (04:58)
[2016-10-06] MEDS: HUMULIN R SUBQ SCH ×4 (06:33→20:35)
[2016-10-06] MEDS: LOVENOX SUBQ SCH ×2 (09:39→09:44)
[2016-10-06] MEDS: APRESOLINE PO SCH ×3 (09:40→20:34)
[2016-10-06] MEDS: CARDIZEM CD PO SCH (09:40)
[2016-10-06] MEDS: PRINIVIL PO SCH (09:40)
[2016-10-06] MEDS: PROTONIX IV SCH (09:40)
--- NOTE | 2016-10-06 14:02 | PROGRESS NOTE ---
DATE: 10/06/2016 SUBJECTIVE: Ms. Mendoza referred to be doing a little better. Continued to show some difficulty breathing. OBJECTIVE: Vital signs: Blood pressure is 166/56 with a pulse of 67, respirations 70, temperature is 98.7 degrees. General: Ms. Mendoza is a 61-year-old female. She was in bed. Seems to be in mild respiratory distress. HEENT: Mucosa is pink and moist. Anicteric. Acyanotic. Neck: Supple. Chest: Air entry is bilaterally reduced. I did not appreciate any crepitations but there was a prolonged expiratory phase of respiration. The patient seems to be using her abdomen for respiration. Abdomen: Soft, distended, but nontender. Extremities: About 2+ pedal edema. PIPE ORGAN TECHNICIAN: Patient is alert and oriented. LABORATORY DATA: WBC is 5.59, hemoglobin is 7.8, platelet count of 183,000. Chemistry: None for today. ABG pH 7.53, pCO2 of 53, PaO2 of 61, this was on the BiPAP. A CT scan which was done on admission showed severe COPD. ASSESSMENT: 1. Acute on chronic respiratory failure. 2. Exacerbation. 3. Sepsis on presentation. The patient was placed on pressor initially. This is resolved. 4. Hypertension. Continues to be slightly high. We are going to make some changes to her medications. 5. Normocytic anemia of chronic disease. 6. Acute kidney injury, resolved. 7. Chronic CO2 retention with adequate metabolic compensation. 8. The patient seems to be having short window period of respiration. I will put her back on the BiPAP and give her a dose of morphine to improve with her ventilatory mechanics. 9. We will increase her hydralazine to 25 b.i.d. and add carvedilol to mitigate rebound tachycardia.
[2016-10-06] MEDS: APRESOLINE IV PRN (15:05)
[2016-10-06] MEDS: COREG PO SCH ×2 (15:28→20:34)
[2016-10-06] MEDS: DILAUDID IV PRN (18:20)
[2016-10-07] MEDS: MERREM 1 GM in NS 50 ML IV SCH ×3 (00:07→16:32)
[2016-10-07] MEDS: SOLU-MEDROL IV SCH ×3 (00:07→15:56)
[2016-10-07] MEDS: DUONEB (A & A) INH SCH ×6 (03:35→22:39)
[2016-10-07 04:56] LABS: BE 13.7 mmoll (-3.0-3.0); BLOOD TYPE ARTERIAL; METHB 1.5 % (0.0-1.5); O2(CT) 21.2 mL/dL (15.0-23.0); PO2(98.6) 150 mmHg (60-100); SAMPLE BLOOD; SAO2 99.6 % (95.0-100.0); THB 15.5 g/dL (11.5-17.4); pH(98.6) 7.36 (7.35-7.45)
[2016-10-07 04:57] LABS: MODALITY BI PAP; PCO2(98.6) 77 mmHg (35-45)
[2016-10-07 05:07] LABS: BASO% 0.2 % (0.0-0.8); HEMATOCRIT 30.7 % (37.0-47.0); HEMOGLOBIN 8.6 g/dL (12.0-16.0); IMM GRAN# 0.13 X1000 (0.0-0.04); IMM GRAN% 1.5 % (0.0-0.5); LYMPH# 0.47 X1000 (1.2-3.4); LYMPH% 5.4 % (20.5-51.1); MANUAL DIFF NEEDED? YES; MCV 92.7 FL (81-99); MONO% 4.6 % (1.7-9.3); MPV 9.5 FL (7.4-10.4); NEUT% 88.3 % (42.2-75.2); PLT 238 X1000 (130-400); RBC 3.31 XMIL (4.2-5.4)
[2016-10-07 05:13] LABS: AGAP 9; BUN 27 mg/dL (8-22); CALCIUM 8.8 mg/dL (8.8-10.2); CHLORIDE 106 mmol/L (98-107); COSMO 311; POTASSIUM 4.9 mmol/L (3.5-5.1); SODIUM 153 mmol/L (136-145); TCO2 38 mmol/L (25-35)
[2016-10-07] MEDS: HUMULIN R SUBQ SCH ×4 (06:08→20:37)
[2016-10-07 06:46] LABS: BANDS 1 % (0-1); LYMPHS 1 % (21-51); MONO 3 % (1-9); NRBC 2 % (0-0)
[2016-10-07 06:48] LABS: HYPOCHROM OCCASIONAL
[2016-10-07] MEDS ORDERED: D5W 1,000 ML IV SCH (07:00)
[2016-10-07] MEDS: PROTONIX IV SCH (08:02)
[2016-10-07] MEDS: CARDIZEM CD PO SCH (08:02)
[2016-10-07] MEDS: LOVENOX SUBQ SCH (08:02)
[2016-10-07] MEDS: APRESOLINE PO SCH ×4 (08:02→20:38)
[2016-10-07] MEDS: SODIUM CHLORIDE 0.9% INJ SCH (08:02)
[2016-10-07] MEDS: COREG PO SCH (08:02)
[2016-10-07] MEDS: PRINIVIL PO SCH (08:02)
--- NOTE | 2016-10-07 09:53 | Diag Imaging Result Document ---
PROCEDURE NAME: CHEST-PORTABLE - 10/07/2016 SINGLE FRONTAL RADIOGRAPH OF THE CHEST: COMPARISON: 10/04/2016. FINDINGS: As compared to the most recent previous study, there is increased opacity at the right lung base, suggesting mild worsening of atelectasis and/or infiltrate. It is possible that this is due to differences in exposure, however. No other new consolidation is identified. Cardiac silhouette is stable. IMPRESSION: Slightly increased opacity at the right lung base, as compared to the previous study, that may be technical.
[2016-10-07] MEDS: D5W 1,000 ML IV SCH (10:30)
[2016-10-07] MEDS: DILAUDID IV PRN ×2 (10:30→20:39)
--- NOTE | 2016-10-07 12:47 | PROGRESS NOTE ---
DATE: 10/07/2016 SUBJECTIVE: Today Ms. Mendoza referred to be stable. She was actually on the BiPAP at the time of the encounter. Per the nursing staff, she has been having low urine output, and she got a dose of Dilaudid yesterday and that seemingly helped with the respiratory rate. However, it made her at this time now a little confused. OBJECTIVE: Vital signs: Blood pressure is 172/74, pulse of 110, respiration is 32, temperature is 98.4 degrees. Patient is saturating 100% on the BiPAP at 50% of FiO2. General exam: Ms. Mendoza is a 61-year-old, female, morbidly obese. She is in bed, seems to be in mild respiratory distress. HEENT: Mucosa is pink and moist. Anicteric. Acyanotic. Neck: Supple. Chest: Air entry is bilaterally reduced. There is a prolonged expiratory phase of respiration. There is also some diffuse expiratory wheezes. Cardiovascular: She is tachycardic. No murmurs, no rubs, no gallops. Abdomen: Distended, nontender. A few bruises on the abdominal wall. Extremities: About 1+ to 2+ pedal edema. PIPE WASHER: Patient is alert, oriented. There is no focal neurological deficit. LABORATORY DATA: 1. WBC is 8.67, hemoglobin is 8.6, platelet count of 238. 2. The differential is predominantly neutrophils. 3. The pH is 7.36, pCO2 of 77, PaO2 of 150; this was on the BiPAP. 4. Sodium is 153, potassium is 4.9, chloride is 106, bicarbonate is 38, glucose is 140. DIAGNOSTIC DATA: A chest x-ray this morning reveals slight increased opacity at the right lung base. ASSESSMENT: 1. Acute on chronic respiratory failure. 2. Chronic obstructive pulmonary disease exacerbation. 3. Sepsis on presentation. The patient needed a short course of pressors; this has been stopped. 4. Acute on chronic ventilatory failure. 5. Chronic carbon dioxide retention (chronic respiratory acidosis with adequate metabolic compensation). 6. Hypernatremia. 7. Adrenergic overdrive, likely due to the underlying respiratory distress. We will continue with the Dilaudid and also add low dose of benzodiazepine intravenous to control and sedate her to improve on her ventilatory mechanics. GENERAL PLAN: 1. We are going to start the patient on D 5 to correct the hypernatremia at a rate of 50 mL/hour. We will be very mindful about her cardiorespiratory status. 2. We have added low-dose benzodiazepine to the opioid to help with her ventilatory rate. 3. Will continue with the current antibiotics and nebulizations. Patient's steroids have been increased by Dr. Sánchez. 4. We will continue with her blood pressure medications and deep vein thrombosis prophylaxis.
[2016-10-07] MEDS: ATIVAN IV PRN (22:43)
[2016-10-08] MEDS: SOLU-MEDROL IV SCH ×3 (00:51→15:08)
[2016-10-08] MEDS: MERREM 1 GM in NS 50 ML IV SCH ×3 (00:51→17:06)
[2016-10-08] MEDS: DILAUDID IV PRN ×3 (01:06→19:30)
[2016-10-08] MEDS: ATIVAN IV PRN ×3 (03:23→20:56)
[2016-10-08] MEDS: DUONEB (A & A) INH SCH ×6 (03:31→22:47)
[2016-10-08 04:26] LABS: ALLEN TEST YES; BE 20.1 mmoll (-3.0-3.0); BLOOD TYPE ARTERIAL; DRAW SITE R RADIAL; METHB 1.4 % (0.0-1.5); O2(CT) 11.9 mL/dL (15.0-23.0); PO2(98.6) 85 mmHg (60-100); SAMPLE BLOOD; SAO2 97.9 % (95.0-100.0); THB 8.8 g/dL (11.5-17.4); pH(98.6) 7.43 (7.35-7.45)
[2016-10-08 04:27] LABS: MODALITY BI PAP
[2016-10-08 04:28] LABS: PCO2(98.6) 71 mmHg (35-45)
[2016-10-08] MEDS: D5W 1,000 ML IV SCH ×4 (05:38→23:27)
[2016-10-08] MEDS: HUMULIN R SUBQ SCH ×4 (06:02→20:55)
[2016-10-08 06:33] LABS: MAGNESIUM 2.4 mg/dL (1.5-2.7)
[2016-10-08 06:35] LABS: AGAP 11; ALBUMIN 3.3 g/dL (3.5-5.0); ALKALINE PHOSPHATASE 79 U/L (32-104); BUN 29 mg/dL (8-22); CALCIUM 9.1 mg/dL (8.8-10.2); CHLORIDE 102 mmol/L (98-107); COSMO 303; GOT 38 U/L (10-30); GPT 160 U/L (10-36); POTASSIUM 4.9 mmol/L (3.5-5.1); SODIUM 147 mmol/L (136-145); TCO2 34 mmol/L (25-35); TOTAL BILIRUBIN 0.38 mg/dL (0.20-1.00); TOTAL PROTEIN 5.5 g/dL (6.3-8.3)
[2016-10-08 07:09] LABS: HEMATOCRIT 30.4 % (37.0-47.0); HEMOGLOBIN 8.7 g/dL (12.0-16.0); MCH 26.4 PG (27-31); MCHC 28.6 g/dL (33-37); MCV 92.4 FL (81-99); RBC 3.29 XMIL (4.2-5.4)
[2016-10-08] MEDS: HALDOL IV PRN (07:53)
[2016-10-08] MEDS: LOVENOX SUBQ SCH (08:01)
[2016-10-08] MEDS: SODIUM CHLORIDE 0.9% INJ SCH (08:01)
[2016-10-08] MEDS: PROTONIX IV SCH (08:01)
[2016-10-08] MEDS: APRESOLINE PO SCH ×4 (09:37→20:55)
[2016-10-08] MEDS: PRINIVIL PO SCH ×2 (09:37→09:54)
[2016-10-08] MEDS: CARDIZEM CD PO SCH ×2 (09:37→09:54)
[2016-10-08] MEDS: APRESOLINE IV PRN (09:50)
[2016-10-08] MEDS ORDERED: LASIX IV ONE (10:19)
--- NOTE | 2016-10-08 11:57 | PROGRESS NOTE ---
DATE: 10/08/2016 SUBJECTIVE: This morning, Ms. Mendoza referred to be doing relatively stable. She was having a lot of adrenergic overdrive, hypertensive, tachycardic, and tachypneic. Was given a dose of Dilaudid and vitals got a whole lot better. OBJECTIVE: Vital signs: Now blood pressure is 147/75, pulse is 84, respiration is 15, temperature is 97.5 degrees. Patient is saturating about 97% on the BiPAP now. General: Ms. Mendoza is a 58-year-old, morbidly obese, female. She is in bed, in mild respiratory distress. She is under the BiPAP. HEENT: Mucosa is pink and moist. Anicteric. Acyanotic. Neck: Supple. Chest: Air entry is bilaterally reduced. There is a prolonged expiratory phase of respiration and a few faint exploratory wheezes. Cardiovascular: Regular rate and rhythm. No murmurs. No rubs. No gallops. Abdomen: Slightly distended. Mild swelling at the right paraumbilical area which is consistent with possible subcutaneous hematoma from the Lovenox injections site. Bowel sounds are hypoactive. Extremities: There is 1+ pedal edema bilaterally. DANDY TENDER: Patient was awake and oriented. There is no focal neurological deficit and follows some commands. LABORATORY DATA: WBC is 7.31, hemoglobin is 8.7, platelet count of 235,000. PH 7.43, pCO2 71, PaO2 is 85. Sodium is 147, potassium 4.9, chloride 102, bicarb is 24. ASSESSMENT: 1. Acute on chronic respiratory failure. 2. Chronic obstructive pulmonary disease exacerbation. 3. Chronic respiratory acidosis with metabolic compensation. 4. Hypernatremia. D5 has been increased. 5. Transaminitis, etiology is unclear but it seems to be improving. I think it is probably due to the acute illness. We will wait to see if it gets better with the improvement of the acute illness before we embark on any expensive and lengthy investigations on that. PLAN: Patient seems to be relatively stable. She has responded very well with the dose of the Dilaudid. I think going forward we will use it more often to help with her ventilatory mechanics. Will continue with the antibiotics, with the steroids, and pulmonary bronchodilator therapy. I will review her chest x-ray for tomorrow morning. The patient has been given a dose of Lasix per the hospital secretary recommendation. MTDD
[2016-10-09] MEDS: DILAUDID IV PRN ×3 (00:20→20:40)
[2016-10-09] MEDS: MERREM 1 GM in NS 50 ML IV SCH ×3 (00:20→15:59)
[2016-10-09] MEDS: SOLU-MEDROL IV SCH ×3 (00:20→15:48)
[2016-10-09] MEDS: DUONEB (A & A) INH SCH ×6 (03:27→22:59)
[2016-10-09] MEDS: ATIVAN IV PRN (03:41)
[2016-10-09 04:20] LABS: ALLEN TEST YES; BE 18.4 mmoll (-3.0-3.0); BLOOD TYPE ARTERIAL; DRAW SITE R RADIAL; METHB 0.9 % (0.0-1.5); O2(CT) 12.3 mL/dL (15.0-23.0); PO2(98.6) 109 mmHg (60-100); SAMPLE BLOOD; SAO2 98.7 % (95.0-100.0); THB 8.9 g/dL (11.5-17.4); pH(98.6) 7.42 (7.35-7.45)
[2016-10-09 04:22] LABS: MODALITY BI PAP; PCO2(98.6) 70 mmHg (35-45)
[2016-10-09 04:41] LABS: HEMATOCRIT 30.6 % (37.0-47.0); HEMOGLOBIN 8.8 g/dL (12.0-16.0); MCH 26.4 PG (27-31); MCHC 28.8 g/dL (33-37); MCV 91.9 FL (81-99); MPV 10.1 FL (7.4-10.4); RBC 3.33 XMIL (4.2-5.4)
[2016-10-09 04:55] LABS: INR 1.04
[2016-10-09 04:57] LABS: AGAP 7; ALBUMIN 3.5 g/dL (3.5-5.0); ALKALINE PHOSPHATASE 79 U/L (32-104); BUN 28 mg/dL (8-22); CALCIUM 8.4 mg/dL (8.8-10.2); CHLORIDE 95 mmol/L (98-107); COSMO 292; GOT 21 U/L (10-30); GPT 125 U/L (10-36); POTASSIUM 4.5 mmol/L (3.5-5.1); SODIUM 141 mmol/L (136-145); TCO2 39 mmol/L (25-35); TOTAL BILIRUBIN 0.47 mg/dL (0.20-1.00); TOTAL PROTEIN 5.8 g/dL (6.3-8.3)
[2016-10-09] MEDS: HUMULIN R SUBQ SCH ×4 (06:05→20:30)
[2016-10-09 06:22] LABS: ALLEN TEST YES; DRAW SITE R RADIAL
--- NOTE | 2016-10-09 08:01 | Diag Imaging Result Document ---
PROCEDURE NAME: CHEST-PORTABLE - 10/09/2016 SINGLE FRONTAL RADIOGRAPH OF THE CHEST: COMPARISON: 10/07/2016. FINDINGS: There has been interval improvement of the opacity at the right lung base. No new consolidations are identified. Cardiac silhouette is stable. IMPRESSION: Interval improvement in right basilar consolidation.
[2016-10-09] MEDS ORDERED: NS 250 ML ONE (08:12)
[2016-10-09] MEDS: APRESOLINE PO SCH ×3 (08:19→20:30)
[2016-10-09] MEDS: PRINIVIL PO SCH (08:20)
[2016-10-09] MEDS: CARDIZEM CD PO SCH (08:20)
[2016-10-09] MEDS: PROTONIX IV SCH (09:40)
[2016-10-09] MEDS: LOVENOX SUBQ SCH (09:40)
[2016-10-09] MEDS: SODIUM CHLORIDE 0.9% INJ SCH (09:40)
[2016-10-09] MEDS: D5W 1,000 ML IV SCH (13:17)
--- NOTE | 2016-10-09 22:20 | PROGRESS NOTE ---
DATE: 10/09/2016 SUBJECTIVE: The patient is currently on BiPAP. She typically desaturates when is taken off her BiPAP. OBJECTIVE: Vital Signs: Temperature 97 degrees, blood pressure 136/74, heart rate 69, respirations 12, O2 saturation is 97% on BiPAP. General: This is a morbidly obese female, lying in bed, in no acute distress. Head: Normocephalic, atraumatic. Heart: S1, S2. Normal. Regular rate and rhythm. Lungs: Clear to auscultation bilaterally. No crackles. No rales. Abdomen: Positive bowel sounds. Soft, nontender, nondistended. Extremities: No edema. No cyanosis. Neurologic: The patient is awake and alert. LABS: White blood cell count 7.8, hemoglobin 8.8, hematocrit 30, platelets 232. ABG: pH of 7.42, pCO2 70, PO2 109, bicarb 39, O2 saturations 96%. Sodium 141, potassium 4.5, chloride 95, CO2 39, BUN 28, creatinine 0.6, glucose 195. ASSESSMENT AND PLAN: 1. Acute hypercapnic and hypoxemic respiratory failure. Continue with BiPAP support, bronchodilator therapy and IV steroids. 2. Pneumonia. Continue on antibiotic therapy plus bronchodilator therapy. 3. Acute chronic obstructive pulmonary disease exacerbation. Continue on IV steroids plus bronchodilator therapy. 4. Hypertension. Controlled. 5. Hyperglycemia. This is most likely steroid induced. We will check a hemoglobin A1c. We will cover the patient with sliding scale insulin. 6. Deep vein thrombosis prophylaxis. Continue on Lovenox.
[2016-10-09] MEDS ORDERED: LASIX IV ONE (23:00)
[2016-10-10] MEDS: SOLU-MEDROL IV SCH ×4 (00:21→23:17)
[2016-10-10] MEDS: ATIVAN IV PRN ×2 (00:25→18:42)
[2016-10-10] MEDS: MERREM 1 GM in NS 50 ML IV SCH ×3 (00:31→16:52)
[2016-10-10] MEDS: DUONEB (A & A) INH SCH ×6 (02:59→23:12)
[2016-10-10] MEDS: D5W 1,000 ML IV SCH (03:30)
[2016-10-10 04:32] LABS: ALLEN TEST YES; BE 18.8 mmoll (-3.0-3.0); BLOOD TYPE ARTERIAL; DRAW SITE R RADIAL; METHB 1.3 % (0.0-1.5); O2(CT) 18.7 mL/dL (15.0-23.0); PO2(98.6) 223 mmHg (60-100); SAMPLE BLOOD; SAO2 99.4 % (95.0-100.0); THB 13.4 g/dL (11.5-17.4); pH(98.6) 7.43 (7.35-7.45)
[2016-10-10 04:35] LABS: MODALITY PRB; PCO2(98.6) 71 mmHg (35-45)
[2016-10-10 05:45] LABS: HEMATOCRIT 30.8 % (37.0-47.0); HEMOGLOBIN 9.3 g/dL (12.0-16.0); MCH 26.5 PG (27-31); MCHC 30.2 g/dL (33-37); MCV 87.7 FL (81-99); MPV 10.3 FL (7.4-10.4); RBC 3.51 XMIL (4.2-5.4)
[2016-10-10 05:54] LABS: AGAP 12; ALBUMIN 2.8 g/dL (3.5-5.0); ALKALINE PHOSPHATASE 79 U/L (32-104); BUN 21 mg/dL (8-22); CALCIUM 8.3 mg/dL (8.8-10.2); CHLORIDE 87 mmol/L (98-107); COSMO 276; GOT 29 U/L (10-30); GPT 93 U/L (10-36); POTASSIUM 4.2 mmol/L (3.5-5.1); SODIUM 133 mmol/L (136-145); TCO2 34 mmol/L (25-35); TOTAL PROTEIN 5.6 g/dL (6.3-8.3)
[2016-10-10] MEDS: HUMULIN R SUBQ SCH ×4 (06:37→20:18)
[2016-10-10] MEDS: DILAUDID IV PRN ×3 (06:45→19:52)
[2016-10-10] MEDS: LOVENOX SUBQ SCH (08:55)
[2016-10-10] MEDS: PROTONIX IV SCH (08:55)
[2016-10-10] MEDS: SODIUM CHLORIDE 0.9% INJ SCH (08:55)
[2016-10-10] MEDS: APRESOLINE PO SCH ×3 (09:04→20:17)
[2016-10-10] MEDS: CARDIZEM CD PO SCH (09:04)
[2016-10-10] MEDS: PRINIVIL PO SCH (09:04)
[2016-10-10] MEDS ORDERED: LASIX IV ONE (09:06)
[2016-10-10] MEDS ORDERED: ALBUMIN 25% IV ONE (12:37)
--- NOTE | 2016-10-10 15:45 | PROGRESS NOTE ---
DATE: 10/10/2016 SUBJECTIVE: The patient is resting comfortably in bed. She was on BiPAP overnight. She is now on a Ventimask. OBJECTIVE: Vital Signs: Temperature 98 degrees, blood pressure 148/64, heart rate 98, respirations 23, O2 saturations 95% on the Ventimask at 40%. General: This is a morbidly obese female, lying in bed, in no acute distress. Head: Normocephalic. Atraumatic. Heart: S1, S2. Normal. Regular rate and rhythm. Lungs: Clear to auscultation bilaterally. No crackles. No rales. No wheezing. Abdomen: Positive bowel sounds. Soft, nontender, nondistended. Extremities: 3+ edema. Neurologic: The patient is alert and oriented x3. LABORATORY: White blood cell count 8, hemoglobin 9.3, hematocrit 30, platelets 204,000. ABG: PH of 7.43, pCO2 71, PO2 223, bicarb 39, O2 saturations 99%. Sodium 133, potassium 4.2, chloride 87, CO2 34, BUN 21, creatinine 0.7, glucose 227, calcium 8.3, AST 29, ALT 93, proBNP 1500, albumin 2.8. ASSESSMENT AND PLAN: 1. Acute on chronic hypercapnic respiratory failure. Continue with the BiPAP, IV steroids, IV antibiotic therapy and bronchodilator therapy. Pulmonary is following. 2. Volume overload. We will start the patient on Lasix and monitor the patient's urine output closely. 3. Acute chronic obstructive pulmonary disease exacerbation. Continue on IV steroids, supplemental oxygen and bronchodilator therapy. 4. Morbid obesity. Aware. 5. Pneumonia. Continue on IV antibiotic therapy. 6. Hypertension, controlled. Continue on hydralazine and lisinopril. 7. Anemia of chronic disease. The patient's hemoglobin and hematocrit is stable. 8. Hyperglycemia. We will continue on sliding scale insulin. 9. Deep vein thrombosis prophylaxis. Continue on Lovenox.
[2016-10-10] MEDS: LASIX IV SCH (23:10)
[2016-10-11] MEDS: MERREM 1 GM in NS 50 ML IV SCH ×3 (00:44→16:02)
--- NOTE | 2016-10-11 03:48 | Extremity Venous Study ---
PROCEDURE NAME: Venous U/S Bilateral Legs - 10/10/2016 REFERRING PHYSICIAN: Dr. Brandt. READING PHYSICIAN: Barrera Fragoso MD. TRACTOR OPERATOR HELPER: Julienne. INDICATION: Bilateral leg swelling. FINDINGS: The deep and superficial veins of both lower extremities were imaged throughout their course. All are compressible with forward flow. No thrombus is appreciated. INTERPRETATION: No evidence of deep or superficial venous thrombosis in either lower extremity.
[2016-10-11] MEDS: DILAUDID IV PRN ×3 (04:34→20:10)
[2016-10-11 04:44] LABS: ALLEN TEST YES; BE 26.4 mmoll (-3.0-3.0); BLOOD TYPE ARTERIAL; DRAW SITE R RADIAL; METHB 1.7 % (0.0-1.5); PO2(98.6) 77 mmHg (60-100); SAMPLE BLOOD
[2016-10-11 04:45] LABS: MODALITY VENTIMASK; PCO2(98.6) 68 mmHg (35-45)
[2016-10-11 06:07] LABS: HEMATOCRIT 29.1 % (37.0-47.0); HEMOGLOBIN 8.7 g/dL (12.0-16.0); MCHC 29.9 g/dL (33-37); MCV 90.4 FL (81-99); MPV 10.2 FL (7.4-10.4); RBC 3.22 XMIL (4.2-5.4)
[2016-10-11 07:06] LABS: AGAP 11; ALBUMIN 3.7 g/dL (3.5-5.0); ALKALINE PHOSPHATASE 84 U/L (32-104); BUN 20 mg/dL (8-22); CHLORIDE 85 mmol/L (98-107); COSMO 280; GOT 64 U/L (10-30); GPT 137 U/L (10-36); POTASSIUM 3.8 mmol/L (3.5-5.1); SODIUM 137 mmol/L (136-145); TCO2 41 mmol/L (25-35); TOTAL BILIRUBIN 0.62 mg/dL (0.20-1.00)
[2016-10-11] MEDS: APRESOLINE IV PRN (07:12)
[2016-10-11] MEDS: HUMULIN R SUBQ SCH ×4 (07:21→20:17)
--- NOTE | 2016-10-11 07:36 | Diag Imaging Result Document ---
PROCEDURE NAME: CHEST-PORTABLE - 10/11/2016 SINGLE RADIOGRAPH OF THE CHEST: COMPARISON: 10/09/2016. FINDINGS: There has been interval placement of a right PICC line. The tip projects over the lower SVC just above the atriocaval junction in the expected position. There is slight increased opacity at the left lung base that may be due to overlying soft-tissue attenuation versus a small effusion with adjacent atelectasis and/or infiltrate. No other new consolidation is identified. Cardiac silhouette is stable. IMPRESSION: 1. Interval placement of right PICC line as described. 2. Slight increased density at the left lung base that is probably due to overlying soft-tissue attenuation. However, a small effusion is possible.
[2016-10-11] MEDS: DUONEB (A & A) INH SCH ×5 (07:44→23:17)
[2016-10-11] MEDS: SOLU-MEDROL IV SCH ×2 (07:59→15:00)
[2016-10-11] MEDS: LOVENOX SUBQ SCH (07:59)
[2016-10-11] MEDS: PROTONIX IV SCH (07:59)
[2016-10-11] MEDS: PRINIVIL PO SCH (08:00)
[2016-10-11] MEDS: APRESOLINE PO SCH ×3 (08:00→20:09)
[2016-10-11] MEDS: CARDIZEM CD PO SCH (08:01)
[2016-10-11] MEDS: LASIX IV SCH ×2 (09:18→22:01)
[2016-10-11] MEDS: ZOFRAN IV PRN (16:05)
--- NOTE | 2016-10-11 16:57 | PROGRESS NOTE ---
DATE: 10/11/2016 SUBJECTIVE: The patient is sitting up in bed, resting comfortably. She states that she slept okay last night. The swelling in her legs is slowly decreasing. OBJECTIVE: Vital Signs: Temperature 97 degrees, blood pressure 126/60, heart rate 112, respirations 24, O2 saturations 95% on 6 L nasal cannula. General: This is a morbidly obese, elderly female, lying in bed, in no acute distress. Head: Normocephalic, atraumatic. Heart: S1, S2. Normal. Tachycardic. Lungs: Clear to auscultation bilaterally. No wheezing, no rales. No rhonchi. Abdomen: Positive bowel sounds. Soft, nontender, nondistended. Extremities: 2 to 3+ edema. No cyanosis. No calf tenderness. Neurologic: The patient is alert and oriented x3. LABS: White blood cell count 7, hemoglobin 8.7, hematocrit 29, platelets 187. Sodium 137, potassium 3.8, chloride 85, CO2 41, BUN 20, creatinine 0.6, glucose 168, AST 64, ALT 137, total protein 6, albumin 3.7. ASSESSMENT AND PLAN: 1. Acute on chronic hypercapnic respiratory failure. Continue with BiPAP, IV steroids, IV antibiotic therapy, and bronchodilator therapy. 2. Volume overload. The patient is diuresing well. She has less peripheral edema today. Continue on IV Lasix. 3. Acute chronic obstructive pulmonary disease exacerbation. Continue on bronchodilator therapy, supplemental oxygen and IV steroids. Pulmonary is following. 4. Pneumonia. Continue on IV antibiotic therapy. 5. Morbid obesity. Aware. 6. Hypertension. Controlled. Continue on hydralazine and lisinopril. 7. Anemia of chronic disease. The patient's hemoglobin and hematocrit are stable. 8. Deep vein thrombosis prophylaxis. Continue on Lovenox.
[2016-10-12] MEDS: MERREM 1 GM in NS 50 ML IV SCH ×3 (01:54→16:09)
[2016-10-12] MEDS: SOLU-MEDROL IV SCH ×4 (01:54→23:59)
[2016-10-12] MEDS: DUONEB (A & A) INH SCH ×7 (03:39→22:49)
[2016-10-12] MEDS: DILAUDID IV PRN ×3 (04:51→22:19)
[2016-10-12 05:03] LABS: ALLEN TEST YES; BLOOD TYPE ARTERIAL; DRAW SITE R RADIAL; METHB 1.4 % (0.0-1.5); O2(CT) 11.5 mL/dL (15.0-23.0); PO2(98.6) 71 mmHg (60-100); SAMPLE BLOOD; SAO2 98.1 % (95.0-100.0); THB 8.6 g/dL (11.5-17.4); pH(98.6) 7.54 (7.35-7.45)
[2016-10-12 05:05] LABS: MODALITY BI PAP; PCO2(98.6) 67 mmHg (35-45)
[2016-10-12 05:15] LABS: AGAP 8; ALBUMIN 3.7 g/dL (3.5-5.0); ALKALINE PHOSPHATASE 79 U/L (32-104); BUN 25 mg/dL (8-22); CALCIUM 8.7 mg/dL (8.8-10.2); CHLORIDE 91 mmol/L (98-107); COSMO 299; GOT 33 U/L (10-30); GPT 104 U/L (10-36); POTASSIUM 3.6 mmol/L (3.5-5.1); SODIUM 145 mmol/L (136-145); TCO2 46 mmol/L (25-35); TOTAL BILIRUBIN 0.61 mg/dL (0.20-1.00); TOTAL PROTEIN 5.4 g/dL (6.3-8.3)
[2016-10-12] MEDS: HUMULIN R SUBQ SCH ×4 (06:14→20:45)
--- NOTE | 2016-10-12 07:31 | Diag Imaging Result Document ---
PROCEDURE NAME: CHEST-PORTABLE - 10/12/2016 AP PORTABLE CHEST ERECT, 10/12/2016 AT 0515 HOURS: FINDINGS: There is a right-sided PICC line. There is fluid in the left pleural space. There is bibasilar atelectasis. Overall, the appearance of the chest has not changed significantly since 10/11/2016. IMPRESSION: Bibasilar atelectasis and left pleural effusion.
[2016-10-12] MEDS: PROTONIX IV SCH (07:56)
[2016-10-12] MEDS: LOVENOX SUBQ SCH (08:00)
[2016-10-12] MEDS: NORCO-5 PO PRN (08:00)
[2016-10-12] MEDS: CARDIZEM CD PO SCH (08:01)
[2016-10-12] MEDS: APRESOLINE PO SCH ×4 (08:01→20:44)
[2016-10-12] MEDS: PRINIVIL PO SCH (08:01)
[2016-10-12 09:08] LABS: HEMATOCRIT 30.7 % (37.0-47.0); HEMOGLOBIN 8.7 g/dL (12.0-16.0); MCH 26.3 PG (27-31); MCHC 28.3 g/dL (33-37); MCV 92.7 FL (81-99); MPV 10.2 FL (7.4-10.4); RBC 3.31 XMIL (4.2-5.4)
[2016-10-12] MEDS: ZOFRAN IV PRN ×2 (10:16→14:19)
--- NOTE | 2016-10-12 17:26 | PALLIATIVE CARE CONSULTATION ---
DATE: 10/12/2016 REQUESTING PHYSICIAN: Ava Brandt MD REASON FOR CONSULTATION: Goals of care. HISTORY OF PRESENT ILLNESS: This is a 61-year-old female with a past medical history of COPD, chronic respiratory failure, history of DVT, peripheral artery disease, obstructive sleep apnea, obesity, hypertension, and hyperlipidemia. She has had multiple inpatient hospitalizations over the last couple of months for COPD exacerbation. She was most recently admitted on 09/30/2016 after presenting to the ER with worsening shortness of breath and complaints of cough and chills. While in the ED, she was placed on BiPAP and had a mild drop in her blood pressure requiring Priyank-Synephrine. This took place at [facility]. Therefore, she was transferred to the [facility] and admitted to the ICU for further evaluation and treatment. Currently she is sitting up in the hospital bed. She complains of nausea. She is alert to person only. She does not have any family at the bedside. Palliative care team has been consulted to assist in goals of care. REVIEW OF SYSTEMS: Unable to review due to patient's mild confusion. PAST MEDICAL HISTORY: See HPI. SOCIAL HISTORY: Prior to this admission, she lived at home alone. However, she was only home for 2 days prior to this admission as she was recently discharged from a local rehab facility. During those 2 days at home, she was on home hospice services for her COPD. She is not . She has only one son. She is a past smoker. Current alcohol, tobacco and drug use have been denied. FAMILY HISTORY: None pertinent. PHYSICAL EXAMINATION: General: This is an obese female who is sitting up in the hospital bed. She is pleasantly confused but does not appear to be in any acute distress. HEENT: Normocephalic. Mucous membranes are moist. Neck: Trachea is midline. Cardiovascular: Increased rate, regular rhythm. Pulmonary: Lung sounds are diminished but clear. Respirations are nonlabored. Abdomen: Obese, soft. Extremities: With 2+ pitting edema to bilateral lower extremities. Pulses are palpable. Skin: Warm and dry. IMPRESSION: This is a 61-year-old female with a past medical history as listed above in the HPI. Palliative care team was consulted to assist with goals of care. I spoke with Ms. Mendoza's son, Caitlin Mendoza, via phone to discuss her goals of care. He states the plan is to discharge to rehab and then transition to long-term care placement. In regards to advanced directive and power of attorney general, she does not have either document but has voiced to be a full code in the past. He states that he understands the chronic and progressive nature of his mother's illnesses and questions were answered regarding those things. It appears that Ms. Mendoza's palliative performance scale was 30%. As mentioned above, she is a full code. The palliative care team will continue to follow until discharge. Thank you for this consultation. Dictated by NELLY Soares for Chito Sánchez MD
[2016-10-12] MEDS: HALDOL IV PRN (19:37)
[2016-10-12] MEDS: CLINIMIX E 4.25%-5% SOLUTION 1,000 ML IV SCH (19:37)
--- NOTE | 2016-10-12 19:42 | PROGRESS NOTE ---
DATE: 10/12/2016 SUBJECTIVE: The patient is sitting up and she is awake. She states that she feels a little bit better, however she does complain of nausea. OBJECTIVE: Vital Signs: Temperature 97 degrees, blood pressure 119/66, heart rate 87, respirations 20, O2 saturations 95% on 6 L nasal cannula. General: This is a morbidly obese female, lying in bed, in no acute distress. Head: Normocephalic, atraumatic. Heart: S1, S2. Normal. Regular rate and rhythm. Lungs: Coarse breath sounds, no wheezing, no rales, no rhonchi. Abdomen: Positive bowel sounds. Soft, obese, nontender, nondistended. Extremities: 2+ edema. No cyanosis. No calf tenderness. Neuro: The patient is alert and oriented x3. No focal neurologic deficits noted. LABS: White blood cell count 9.5, hemoglobin 8.7, hematocrit 30, platelets 217,000. Sodium 145, potassium 3.6, chloride 91, CO2 46, BUN 25, creatinine 0.7, glucose 197, calcium 8.7, AST 33, ALT 104, alkaline phosphatase 79, albumin 3.7. ASSESSMENT AND PLAN: 1. Acute on chronic hypercapnic respiratory failure. This appears to be improving. The patient is now on 6 L nasal cannula. Continue on bronchodilator therapy IV antibiotics and IV steroids. Pulmonary is following. 2. Acute chronic obstructive pulmonary disease exacerbation. Continue on bronchodilator therapy and steroid therapy. 3. Morbid obesity. Aware. 4. Diabetes mellitus type 2. Continue on sliding scale insulin. 5. Pneumonia. Slowly improving. Continue on IV antibiotic therapy. 6. Anemia of chronic disease. The patient's hemoglobin and hematocrit is stable. 7. Hypertension. Controlled. 8. DVT prophylaxis. Continue on Lovenox.
[2016-10-12] MEDS: COLACE PO SCH (20:44)
[2016-10-12] MEDS: DULCOLAX PR SCH (20:44)
[2016-10-13] MEDS: MERREM 1 GM in NS 50 ML IV SCH ×3 (00:12→17:18)
[2016-10-13] MEDS: DUONEB (A & A) INH SCH ×6 (02:45→22:59)
[2016-10-13] MEDS: DILAUDID IV PRN ×2 (03:25→08:59)
[2016-10-13 04:29] LABS: BLOOD TYPE ARTERIAL; SAMPLE BLOOD
[2016-10-13 04:33] LABS: ALLEN TEST YES; BE 28.4 mmoll (-3.0-3.0); DRAW SITE R RADIAL; METHB 1.4 % (0.0-1.5); O2(CT) 12.5 mL/dL (15.0-23.0); PO2(98.6) 74 mmHg (60-100); SAO2 96.7 % (95.0-100.0); THB 9.4 g/dL (11.5-17.4); pH(98.6) 7.47 (7.35-7.45)
[2016-10-13 04:35] LABS: MODALITY VENTIMASK; PCO2(98.6) 77 mmHg (35-45)
[2016-10-13] MEDS: HUMULIN R SUBQ SCH ×4 (06:26→20:05)
[2016-10-13 06:42] LABS: HEMATOCRIT 31.4 % (37.0-47.0); MCH 26.9 PG (27-31); MCHC 28.7 g/dL (33-37); MPV 10.6 FL (7.4-10.4); RBC 3.34 XMIL (4.2-5.4)
[2016-10-13 07:04] LABS: AGAP 8; ALBUMIN 3.8 g/dL (3.5-5.0); ALKALINE PHOSPHATASE 81 U/L (32-104); BUN 39 mg/dL (8-22); CALCIUM 9.1 mg/dL (8.8-10.2); CHLORIDE 90 mmol/L (98-107); COSMO 303; GOT 25 U/L (10-30); GPT 96 U/L (10-36); POTASSIUM 3.8 mmol/L (3.5-5.1); SODIUM 142 mmol/L (136-145); TCO2 44 mmol/L (25-35); TOTAL BILIRUBIN 0.65 mg/dL (0.20-1.00); TOTAL PROTEIN 5.5 g/dL (6.3-8.3)
--- NOTE | 2016-10-13 07:33 | Diag Imaging Result Document ---
PROCEDURE NAME: CHEST-PORTABLE - 10/13/2016 SINGLE FRONTAL RADIOGRAPH OF THE CHEST: COMPARISON: 10/12/2016. FINDINGS: Right PICC line is stable. Inspiration is suboptimal. There is stable bibasilar atelectasis. No new consolidations are identified. Cardiac silhouette is stable. There is suggestion of a small left pleural effusion, stable. IMPRESSION: Stable chest.
--- NOTE | 2016-10-13 07:45 | Diag Imaging Result Document ---
PROCEDURE NAME: ABDOMEN FLAT/UPRIGHT - 10/13/2016 FLAT AND UPRIGHT RADIOGRAPH OF THE ABDOMEN: COMPARISON: 04/18/2014. FINDINGS: There are unremarkable bowel gas and stool patterns. There is no evidence of bowel obstruction. There is no evidence of large volume free abdominal gas. There is no definite organomegaly. IMPRESSION: No evidence of acute abdominal pathology identified.
[2016-10-13] MEDS: APRESOLINE PO SCH ×3 (08:05→20:07)
[2016-10-13] MEDS: CARDIZEM CD PO SCH (08:06)
[2016-10-13] MEDS: PRINIVIL PO SCH (08:06)
[2016-10-13] MEDS: SOLU-MEDROL IV SCH ×3 (08:06→22:51)
[2016-10-13] MEDS: LOVENOX SUBQ SCH (08:06)
[2016-10-13] MEDS: COLACE PO SCH ×2 (08:06→20:07)
[2016-10-13] MEDS: MIRALAX PO SCH (08:07)
[2016-10-13] MEDS: CLINIMIX E 4.25%-5% SOLUTION 1,000 ML IV SCH ×3 (08:08→22:31)
[2016-10-13] MEDS: PROTONIX IV SCH (08:08)
[2016-10-13] MEDS: ZOFRAN IV PRN ×3 (08:59→22:50)
[2016-10-13] MEDS: NORCO-5 PO PRN ×2 (16:35→22:50)
--- NOTE | 2016-10-13 16:50 | PROGRESS NOTE ---
DATE: 10/13/2016 SUBJECTIVE: The patient is awake and alert. She is resting comfortably in bed. She has no complaints. OBJECTIVE: Vital Signs: Temperature 97.0 degrees, blood pressure 153/66, heart rate 88, respirations 20, O2 saturations 93% on 6 L nasal cannula. General: This is an elderly female, lying in bed in no acute distress. Head: Normocephalic, atraumatic. Heart: S1, S2. Normal. Tachycardic. Lungs: Clear to auscultation bilaterally. No wheezes, no rales. No rhonchi. Abdomen: Positive bowel sounds. Soft, obese, nontender, nondistended. Extremities: There is 2+ edema. Neurologic: The patient is awake and alert. LABS: White blood cell count 12, hemoglobin 9, hematocrit 31, platelets 224. ABG: The pH is 7.4, pCO2 77, PO2 74, bicarbonate 47, O2 saturations 96%. Sodium 142, potassium 3.8, chloride 90, CO2 44, BUN 39, creatinine 0.7, glucose 293, albumin 3.8. ASSESSMENT AND PLAN: 1. Acute on chronic hypercapnic respiratory failure. Will continue with BiPAP support at night and nasal cannula during the day. 2. Acute chronic obstructive pulmonary disease exacerbation. Continue on intravenous steroids plus bronchodilator therapy and antibiotics. 3. Pneumonia. Continue on the current intravenous antibiotic regimen. 4. Morbid obesity. Aware. 5. Diabetes mellitus type 2. Continue on sliding scale insulin. 6. Anemia of chronic disease. The patient's hemoglobin and hematocrit are stable. 7. Hypertension. Controlled. 8. Deep vein thrombosis prophylaxis. Continue on Lovenox. 9. The patient will be transferred to CICU. Physical therapy is currently working with the patient.
[2016-10-13] MEDS: DULCOLAX PR SCH (20:07)
[2016-10-13] MEDS: TYLENOL PO PRN (20:26)
[2016-10-13] MEDS ORDERED: LEVEMIR SUBQ SCH (21:00)
[2016-10-13] MEDS ORDERED: CALMOSEPTINE OINTMENT TOP PRN (22:15)
[2016-10-14] MEDS: SOLU-MEDROL IV SCH ×2 (01:05→15:51)
[2016-10-14] MEDS: MERREM 1 GM in NS 50 ML IV SCH ×3 (01:05→16:44)
[2016-10-14] MEDS: DUONEB (A & A) INH SCH ×6 (02:55→23:21)
[2016-10-14 03:34] LABS: ALLEN TEST YES; BE 23.9 mmoll (-3.0-3.0); BLOOD TYPE ARTERIAL; DRAW SITE R RADIAL; METHB 1.5 % (0.0-1.5); MODALITY BI PAP; O2(CT) 10.5 mL/dL (15.0-23.0); PCO2(98.6) 62 mmHg (35-45); PO2(98.6) 75 mmHg (60-100); SAMPLE BLOOD; SAO2 97.2 % (95.0-100.0); SRATE 4 BPM; THB 7.8 g/dL (11.5-17.4); pH(98.6) 7.51 (7.35-7.45)
[2016-10-14 05:39] LABS: HEMATOCRIT 30.4 % (37.0-47.0); HEMOGLOBIN 8.7 g/dL (12.0-16.0); MCH 26.9 PG (27-31); MCHC 28.6 g/dL (33-37); MCV 93.8 FL (81-99); MPV 10.8 FL (7.4-10.4); RBC 3.24 XMIL (4.2-5.4)
[2016-10-14 06:14] LABS: AGAP 8; ALBUMIN 3.6 g/dL (3.5-5.0); ALKALINE PHOSPHATASE 82 U/L (32-104); BUN 61 mg/dL (8-22); CHLORIDE 86 mmol/L (98-107); COSMO 304; GOT 31 U/L (10-30); GPT 90 U/L (10-36); SODIUM 135 mmol/L (136-145); TCO2 41 mmol/L (25-35); TOTAL BILIRUBIN 0.58 mg/dL (0.20-1.00); TOTAL PROTEIN 5.2 g/dL (6.3-8.3)
[2016-10-14] MEDS: HUMULIN R SUBQ SCH ×4 (06:24→21:28)
[2016-10-14 06:25] LABS: POTASSIUM 5.8 mmol/L (3.5-5.1)
[2016-10-14 07:59] LABS: HEMOGLOBIN A1C 5.9 % (4.8-6.0)
--- NOTE | 2016-10-14 08:45 | Diag Imaging Result Document ---
PROCEDURE NAME: CHEST-PORTABLE - 10/14/2016 AP PORTABLE CHEST AT 0500 HOURS: FINDINGS: There is a left pleural effusion which may be slightly larger than on the previous study of 10/13/2016. On the other hand, the right base is clearer than it was on the previous study. IMPRESSION: Improved atelectasis and/or pneumonia in the right lower lobe. There is slightly worsened left pleural effusion.
[2016-10-14] MEDS: MIRALAX PO SCH (09:30)
[2016-10-14] MEDS: PROTONIX IV SCH (09:31)
[2016-10-14] MEDS: PRINIVIL PO SCH (09:31)
[2016-10-14] MEDS: SODIUM CHLORIDE 0.9% INJ SCH (09:31)
[2016-10-14] MEDS: LOVENOX SUBQ SCH (09:31)
[2016-10-14] MEDS: APRESOLINE PO SCH ×3 (09:31→21:27)
[2016-10-14] MEDS: CARDIZEM CD PO SCH (09:31)
[2016-10-14] MEDS: COLACE PO SCH ×2 (09:31→21:27)
[2016-10-14] MEDS: LEVEMIR SUBQ SCH ×2 (09:33→21:28)
[2016-10-14] MEDS: ZOFRAN IV PRN ×2 (17:03→21:57)
[2016-10-14] MEDS: NORCO-5 PO PRN (17:03)
--- NOTE | 2016-10-14 17:51 | PROGRESS NOTE ---
DATE: 10/14/2016 SUBJECTIVE: The patient is resting comfortably in bed. She has no complaints at this time. She states that she does not have an appetite and has not really been eating very much. OBJECTIVE: Vital Signs: Temperature 98.6 degrees, blood pressure 128/55, heart rate 112, respirations 18, O2 saturations 98% on 6 L nasal cannula. General: This is a morbidly obese female, lying in bed, in no acute distress. Head: Normocephalic, atraumatic. Heart: S1, S2 normal. Tachycardic. Lungs: Clear to auscultation bilaterally. No wheezes, no rales. No rhonchi. Abdomen: Positive bowel sounds. Soft, nontender, nondistended. Extremities: 3+ edema bilaterally in the lower extremities. Neuro: The patient is awake and alert. No focal neurologic deficits noted. LABS: White blood cell count 14, hemoglobin 8.7, hematocrit 30, platelets 212,000. Sodium 135, potassium 5.8, chloride 86, CO2 41, BUN 61, creatinine 0.8. Glucose 399, AST 31, ALT 9, alkaline phosphatase 82. ASSESSMENT AND PLAN: 1. Acute on chronic hypercapnic respiratory failure. Continue with BiPAP at night plus IV steroids, bronchodilator therapy, and IV antibiotics. 2. Acute chronic obstructive pulmonary disease exacerbation. Continue on IV steroid therapy plus bronchodilator therapy. 3. Pneumonia. Continue on the current IV antibiotic regimen. 4. Anemia of chronic disease. The patient's hemoglobin and hematocrit is stable. 5. Obesity. Aware. 6. Hyperkalemia. Will repeat a renal profile later today. 7. DVT prophylaxis. Continue on Lovenox.
[2016-10-14 18:32] LABS: ALBUMIN 3.6 g/dL (3.5-5.0); CALCIUM 9.5 mg/dL (8.8-10.2); POTASSIUM 4.5 mmol/L (3.5-5.1)
[2016-10-14] MEDS ORDERED: MEGACE LIQUID PO SCH (21:00)
[2016-10-14] MEDS: DULCOLAX PR SCH (21:27)
[2016-10-14] MEDS: NS 1,000 ML IV SCH (21:57)
[2016-10-14] MEDS: DILAUDID IV PRN (21:58)
[2016-10-15] MEDS: SOLU-MEDROL IV SCH ×3 (01:20→16:04)
[2016-10-15] MEDS: MERREM 1 GM in NS 50 ML IV SCH ×4 (01:20→23:59)
[2016-10-15] MEDS: DUONEB (A & A) INH SCH ×6 (03:34→23:48)
[2016-10-15] MEDS: ZOFRAN IV PRN ×4 (04:20→17:32)
[2016-10-15 05:33] LABS: HEMATOCRIT 30.5 % (37.0-47.0); HEMOGLOBIN 8.9 g/dL (12.0-16.0); MCH 27.1 PG (27-31); MCHC 29.2 g/dL (33-37); MCV 92.7 FL (81-99); MPV 10.5 FL (7.4-10.4); RBC 3.29 XMIL (4.2-5.4)
[2016-10-15 05:42] LABS: ALLEN TEST YES; BE 22.4 mmoll (-3.0-3.0); BLOOD TYPE ARTERIAL; DRAW SITE R RADIAL; METHB 1.1 % (0.0-1.5); O2(CT) 13.3 mL/dL (15.0-23.0); PO2(98.6) 77 mmHg (60-100); SAMPLE BLOOD; SAO2 97.2 % (95.0-100.0); THB 9.9 g/dL (11.5-17.4); pH(98.6) 7.49 (7.35-7.45)
[2016-10-15 05:43] LABS: MODALITY BI PAP; PCO2(98.6) 64 mmHg (35-45)
[2016-10-15] MEDS: HUMULIN R SUBQ SCH ×4 (06:27→21:06)
[2016-10-15 06:41] LABS: ALBUMIN 3.7 g/dL (3.5-5.0); CALCIUM 9.3 mg/dL (8.8-10.2); POTASSIUM 4.4 mmol/L (3.5-5.1); TOTAL BILIRUBIN 0.65 mg/dL (0.20-1.00); TOTAL PROTEIN 5.5 g/dL (6.3-8.3)
--- NOTE | 2016-10-15 07:20 | Diag Imaging Result Document ---
PROCEDURE NAME: CHEST-PORTABLE - 10/15/2016 AP PORTABLE CHEST, 10/15/2016 AT 0500 HOURS: FINDINGS: There is a left pleural effusion and probable atelectasis in the left lower lobe. This has not changed appreciably since the previous study of 10/14/2016. Otherwise, there has been no significant change. IMPRESSION: Stable chest.
[2016-10-15] MEDS: LOVENOX SUBQ SCH (09:11)
[2016-10-15] MEDS: SODIUM CHLORIDE 0.9% INJ SCH (09:11)
[2016-10-15] MEDS: MEGACE LIQUID PO SCH (09:11)
[2016-10-15] MEDS: PROTONIX IV SCH (09:11)
[2016-10-15] MEDS: APRESOLINE PO SCH ×2 (09:12→13:32)
[2016-10-15] MEDS: CARDIZEM CD PO SCH (09:12)
[2016-10-15] MEDS: COLACE PO SCH ×2 (09:12→21:04)
[2016-10-15] MEDS: NS 1,000 ML IV SCH (09:13)
[2016-10-15] MEDS: MIRALAX PO SCH (09:13)
[2016-10-15] MEDS: LEVEMIR SUBQ SCH ×2 (09:13→21:05)
[2016-10-15] MEDS: DILAUDID IV PRN ×2 (09:21→13:24)
--- NOTE | 2016-10-15 16:39 | PROGRESS NOTE ---
DATE: 10/15/2016 SUBJECTIVE: The patient is resting comfortably in bed. No acute events noted overnight. The patient still has a very poor appetite and is not eating very much. OBJECTIVE: Vital Signs: Temperature 97 degrees, blood pressure 97/48, heart rate 97, respirations 20, O2 saturations 96% on 6 L nasal cannula. General: This is a morbidly obese female lying in bed in no acute distress. Head: Normocephalic, atraumatic. Heart: S1, S2. Normal. Regular rate and rhythm. Lungs: Clear to auscultation bilaterally. No wheezes, no rales. No rhonchi. Abdomen: Positive bowel sounds. Soft, nontender, nondistended. Extremities: 2 to 3+ edema in the lower extremities. Neurologic: The patient is awake and alert. LABS: White blood cell count 10, hemoglobin 8.9, hematocrit 30, platelets 196,000. Sodium 143, potassium 4.4, chloride 93, CO2 39, BUN 67, creatinine 1, glucose 107. ASSESSMENT AND PLAN: 1. Acute on chronic hypercapnic respiratory failure. Continue on BiPAP at night plus IV steroids, bronchodilator therapy and IV antibiotics. Pulmonary is following. 2. Acute chronic obstructive pulmonary disease exacerbation. Continue on IV steroids plus bronchodilator therapy. 3. Pneumonia. Continue on IV antibiotic therapy. 4. Acute kidney injury. Continue on gentle IV fluid hydration. 5. Anemia of chronic disease. The patient's hemoglobin and hematocrit are stable. 6. Morbid obesity. Aware. 7. Gastrointestinal prophylaxis. Continue on IV Protonix. 8. Deep vein thrombosis prophylaxis. Continue on Lovenox. 9. Physical therapy has been consulted.
[2016-10-15] MEDS: NORCO-5 PO PRN (17:32)
[2016-10-15] MEDS: DULCOLAX PR SCH (21:04)
[2016-10-16] MEDS ORDERED: NS 1,000 ML IV SCH (00:45)
[2016-10-16] MEDS: DUONEB (A & A) INH SCH ×6 (03:10→22:44)
[2016-10-16] MEDS: SOLU-MEDROL IV SCH ×2 (03:56→17:05)
[2016-10-16] MEDS: NORCO-5 PO PRN ×4 (04:26→23:00)
[2016-10-16] MEDS: ZOFRAN IV PRN ×4 (04:27→20:58)
[2016-10-16 04:50] LABS: ALLEN TEST YES; BE 22.6 mmoll (-3.0-3.0); BLOOD TYPE ARTERIAL; DRAW SITE R RADIAL; METHB 1.4 % (0.0-1.5); O2(CT) 12.3 mL/dL (15.0-23.0); PO2(98.6) 84 mmHg (60-100); SAMPLE BLOOD; SAO2 97.7 % (95.0-100.0); THB 9.1 g/dL (11.5-17.4); pH(98.6) 7.52 (7.35-7.45)
[2016-10-16 04:52] LABS: MODALITY BI PAP; PCO2(98.6) 59 mmHg (35-45)
[2016-10-16 05:28] LABS: HEMATOCRIT 28.3 % (37.0-47.0); HEMOGLOBIN 8.2 g/dL (12.0-16.0); MCH 27.1 PG (27-31); MCV 93.4 FL (81-99); MPV 10.3 FL (7.4-10.4); RBC 3.03 XMIL (4.2-5.4)
[2016-10-16 06:08] LABS: AGAP 5; ALBUMIN 3.4 g/dL (3.5-5.0); ALKALINE PHOSPHATASE 86 U/L (32-104); BUN 55 mg/dL (8-22); CALCIUM 8.9 mg/dL (8.8-10.2); CHLORIDE 99 mmol/L (98-107); COSMO 300; GOT 34 U/L (10-30); GPT 98 U/L (10-36); POTASSIUM 4.1 mmol/L (3.5-5.1); SODIUM 144 mmol/L (136-145); TCO2 40 mmol/L (25-35); TOTAL BILIRUBIN 0.45 mg/dL (0.20-1.00); TOTAL PROTEIN 5.1 g/dL (6.3-8.3)
[2016-10-16] MEDS: HUMULIN R SUBQ SCH ×4 (06:43→20:59)
--- NOTE | 2016-10-16 08:25 | Diag Imaging Result Document ---
PROCEDURE NAME: CHEST-PORTABLE - 10/16/2016 PORTABLE CHEST X-RAY, 10/16/2016: COMPARISON: 10/15/2016. FINDINGS: Stable PICC line in good position. Stable left basilar infiltrate versus atelectasis. Heart size remains top normal. No new infiltrates. IMPRESSION: No change from prior.
[2016-10-16] MEDS: SODIUM CHLORIDE 0.9% INJ SCH (09:32)
[2016-10-16] MEDS: CARDIZEM CD PO SCH (09:32)
[2016-10-16] MEDS: PROTONIX IV SCH (09:32)
[2016-10-16] MEDS: COLACE PO SCH ×2 (09:32→20:57)
[2016-10-16] MEDS: MIRALAX PO SCH (09:33)
[2016-10-16] MEDS: MEGACE LIQUID PO SCH (09:33)
[2016-10-16] MEDS: LEVEMIR SUBQ SCH ×2 (09:33→20:58)
[2016-10-16] MEDS: MERREM 1 GM in NS 50 ML IV SCH ×2 (09:33→17:05)
[2016-10-16] MEDS: LOVENOX SUBQ SCH (09:33)
--- NOTE | 2016-10-16 14:10 | PROGRESS NOTE ---
DATE: 10/16/2016 SUBJECTIVE: Patient has no focal complaints. She seems at her baseline. OBJECTIVE: Blood pressure 131/52, heart rate of 89, respiratory 16, temperature 95 degrees, 99% on 5 L.Cardiovascular: Regular rate and rhythm. Pulmonary: Bilateral breath sounds. Clear to auscultation. GI: Soft, nontender, nondistended. Bowel sounds are positive. LABORATORY DATA: White count normal, hemoglobin and hematocrit 8 and 28, platelets 264,000. Chemistries look okay. BUN is 55 which has been above 60 previously. Sugars have been [address] up to 344. Chest x-ray shows improved infiltrates versus atelectasis, and then her blood gas pH was 7.52, pCO2 59, PaO2 84, that is on 45%. PROBLEM LIST: 1. Acute hypercapnic respiratory failure. She seems to be doing okay. Continue to wean BiPAP as tolerated. She is on IV steroids but at low dose. I think she could be transitioned to p.o. 2. IV antibiotics. 3. Chronic obstructive pulmonary disease exacerbation. Clinically has overall improved. 4. Acute kidney injury. Appears to be stable. 5. Anemia of chronic inflammation. We will continue to monitor hemoglobin and hematocrit again has been stable. DISPOSITION: Plan to go to rehab. She is participating fairly minimally in any treatments. Refuses to cooperate sometimes with physical therapy; however, I do not think she is going to be safe enough to go home. DISPOSITION: Likely discharge hopefully in next 1-2 days pending her course. I think she is probably again safe to go
[2016-10-16] MEDS: TYLENOL PO PRN (14:14)
[2016-10-16] MEDS: DULCOLAX PR SCH (20:57)
[2016-10-17] MEDS: SOLU-MEDROL IV SCH (02:20)
[2016-10-17] MEDS: MERREM 1 GM in NS 50 ML IV SCH ×2 (02:20→08:09)
[2016-10-17] MEDS: DUONEB (A & A) INH SCH ×6 (03:29→23:12)
[2016-10-17] MEDS: ZOFRAN IV PRN ×4 (06:00→20:36)
[2016-10-17] MEDS: NORCO-5 PO PRN ×3 (06:00→22:29)
[2016-10-17] MEDS: HUMULIN R SUBQ SCH ×3 (06:01→16:45)
[2016-10-17] MEDS: SODIUM CHLORIDE 0.9% INJ SCH (08:08)
[2016-10-17] MEDS: PROTONIX IV SCH (08:08)
[2016-10-17] MEDS: COLACE PO SCH ×2 (08:08→20:36)
[2016-10-17] MEDS: CARDIZEM CD PO SCH (08:08)
[2016-10-17] MEDS: MIRALAX PO SCH ×2 (08:08→08:12)
[2016-10-17] MEDS: MEGACE LIQUID PO SCH ×2 (08:08→08:13)
[2016-10-17] MEDS: LOVENOX SUBQ SCH (08:09)
[2016-10-17] MEDS: LEVEMIR SUBQ SCH ×2 (08:09→20:34)
[2016-10-17] MEDS: DILAUDID IV PRN (09:50)
--- NOTE | 2016-10-17 11:33 | PROGRESS NOTE ---
DATE: 10/17/2016 SUBJECTIVE: The patient is feeling better. Still having shortness of breath when she is moving around. She is on 4 L of nasal cannula which is her home oxygen. No chest pain. No PND. No orthopnea. OBJECTIVE: Vital signs: Blood pressure 134/66, pulse 107, respirations 20, temperature 98.4 degrees, saturation of 96% on 4-5 L. General Appearance: Morbidly obese, white female in no acute distress. HEENT: Anicteric. Clear conjunctivae. Neck: Supple. No JVD. No bruit. Cardiovascular: S1, S2. Normal rate and rhythm. No murmurs, rubs, or gallops. Pulmonary: Clear to auscultation bilaterally. GI: Soft, nontender, nondistended. Normoactive bowel sounds. Musculoskeletal: No clubbing, cyanosis, or edema. LABORATORY: White count 9.42, hemoglobin 8.2, hematocrit of 28.3, platelets 164,000. She did not have a chemistry today. Chest x-ray showed left basilar infiltrate versus atelectasis. ASSESSMENT AND PLAN: This is a 61-year-old admitted to the hospital for acute respiratory distress. 1. Acute on chronic hypercapnic respiratory failure. The patient has continued to improve. Only on a BiPAP at night. She is on 4-5 L of home oxygen which she has been on at home. We will transition the patient to p.o. steroids and p.o. antibiotics. There is no clear evidence of infection. We will continue physical therapy. We will probably get the patient to rehab within the next day or 2. 2. Acute kidney injury, stable. We will check renal function in the morning. 3. Anemia probably secondary to chronic disease. We will continue to follow. 4. Encouraged the patient to participate with physical therapy and we will get her to a rehab since the patient lives alone and is not safe to go home just yet.
[2016-10-17] MEDS: DULCOLAX PR SCH (20:36)
[2016-10-18] MEDS: ZOFRAN IV PRN ×3 (00:38→11:41)
[2016-10-18] MEDS: HUMULIN R SUBQ SCH ×3 (01:03→11:32)
[2016-10-18] MEDS: DUONEB (A & A) INH SCH ×3 (03:50→11:35)
[2016-10-18] MEDS: NORCO-5 PO PRN ×2 (04:32→11:41)
[2016-10-18 05:32] LABS: MANUAL DIFF NEEDED? NO
[2016-10-18 06:01] LABS: BASO% 0.9 % (0.0-0.8); EOS# 0.01 X1000 (0.0-0.7); EOS% 0.1 % (0.0-10.0); HEMATOCRIT 29.4 % (37.0-47.0); HEMOGLOBIN 8.7 g/dL (12.0-16.0); IMM GRAN# 0.15 X1000 (0.0-0.04); IMM GRAN% 1.6 % (0.0-0.5); LYMPH# 0.73 X1000 (1.2-3.4); MCH 27.2 PG (27-31); MCHC 29.6 g/dL (33-37); MCV 91.9 FL (81-99); MONO# 0.43 X1000 (0.11-0.59); MONO% 4.7 % (1.7-9.3); MPV 10.6 FL (7.4-10.4); NEUT% 84.7 % (42.2-75.2); PLT 144 X1000 (130-400)
[2016-10-18 06:18] LABS: AGAP 7; BUN 28 mg/dL (8-22); CALCIUM 9.1 mg/dL (8.8-10.2); CHLORIDE 99 mmol/L (98-107); COSMO 282; POTASSIUM 4.7 mmol/L (3.5-5.1); SODIUM 140 mmol/L (136-145); TCO2 34 mmol/L (25-35)
[2016-10-18] MEDS: PROTONIX IV SCH (08:29)
[2016-10-18] MEDS: MEGACE LIQUID PO SCH (08:30)
[2016-10-18] MEDS: MIRALAX PO SCH (08:30)
[2016-10-18] MEDS: SODIUM CHLORIDE 0.9% INJ SCH (08:30)
[2016-10-18] MEDS: CARDIZEM CD PO SCH (08:30)
[2016-10-18] MEDS: COLACE PO SCH (08:30)
[2016-10-18] MEDS: LEVEMIR SUBQ SCH (08:30)
[2016-10-18] MEDS: LOVENOX SUBQ SCH (08:30)
[2016-10-18] MEDS ORDERED: LEVEMIR SUBQ SCH (08:52)
[2016-10-18] MEDS ORDERED: PREDNISONE PO SCH (09:00)
[2016-10-18 11:31] VITALS: BP 148/66
--- NOTE | 2016-10-18 12:01 | DISCHARGE SUMMARY ---
ADMISSION DATE: 09/30/2016 DISCHARGE DATE: 10/18/2016 CONSULTATION: Dr. Jerome Morelos with Pulmonology. PERTINENT PROCEDURES: CT of the chest showed severe COPD with pulmonary scarring. Extremity venous study showed no evidence of deep or superficial venous thrombosis in either lower extremity. DISCHARGE DIAGNOSES: 1. Acute on chronic hypercapnic respiratory failure. Continue with home steroids as well as supplemental O2 and p.o. antibiotics. Patient going to rehab facility to long-term care. 2. Acute COPD exacerbation, improving. 3. Pneumonia. Patient to continue on antibiotics, improved. 4. Acute kidney injury resolved. 5. Anemia of chronic disease. Stable. 6. Morbid obesity. Aware. The patient educated about diet and exercise. HOSPITAL COURSE: Briefly Ms. Mendoza is a 61-year-old female, with a past medical history of COPD, chronic hypercapnic respiratory failure on home O2 at 4-5 L, history of DVT, peripheral artery disease, obstructive sleep apnea, obesity, hypertension, and hyperlipidemia. The patient is well known to our service from multiple hospitalizations over the last few months for COPD exacerbations. This admission patient presented to the ED with worsening shortness of breath. Did complain of cough and chills. In the ED she was placed on BiPAP. She had a drop in her blood pressures where she required to be on IV drip of Priyank-Synephrine. The patient was originally at [facility] and was transferred to [facility] and admitted to the ICU. She was started on bronchodilators, IV antibiotics, continued on BiPAP, IV steroids and a Pulmonology consult. A CT of the chest just showed severe COPD with mild pulmonary scarring. The patient was also noted to have an elevated D-dimer. Again her CTA was negative. Her venous Dopplers were also negative. She was gently hydrated for her acute kidney injury. The patient remained in the hospital for several days with IV antibiotics, IV steroids and IV fluids. She was on BiPAP at bedtime and her home nasal cannula during the day. The patient slowly improved. The Palliative Care team was also brought in to discuss goals of care. They spoke with her and her son and their goal is to discharge to rehab and transition to long-term care placement. The patient has been transitioned to p.o. steroids as well as p.o. antibiotics. There was no clear evidence of infection. She did work with physical therapy. She is appropriate for rehab discharge today to transition into long-term care. Vital signs at time of discharge, temperature 98.3 degrees, heart rate 99, respirations 21, blood pressure 136/58, O2 is 94% on nasal cannula. DISCHARGE DIET: GI soft with Glucerna shakes. DISCHARGE MEDICATIONS: As per Dr. Harrington. 1. Nexium. 2. Breo Ellipta. 3. Singular. 4. Pravachol. 5. Senokot. 6. Symbicort. 7. Zyrtec. 8. Lisinopril. 9. Xanax. 10. [place]. 11. Cardizem. 12. Zithromax. 13. DuoNeb. 14. Lasix. 15. Prednisone. 16. Vitamin D. FOLLOWUP: Patient is being discharged to rehab. She can follow up with primary care physician or if for long-term placement she can follow the inhouse MD and she can follow up with Dr. Sánchez as indicated. Patient can return to the ED for any worsening of symptoms. Discharge time greater than 30 minutes. Dictated by NELLY Fernandes for Peña Sierra MD Addendum: I personally evaluated and examined the patient in conjunction to the IMAGING SERVICES DIRECTOR and agreed with her disposition. Her lungs are clear on examine MTDD
== END 2016-10-18 14:45 | DRG 871 ==
LOC: P.ED 01:45 → DIRADM 03:09 → ICU 04:27 → 3S 10-13 12:12
PROVIDERS: ATTEND Internal Medicine
PROC: 02HV33Z Insertion of Infusion Device into Superior Vena Cava, Percutaneous Approach (ICD-10-PCS; principal; 2016-10-09)
DX: A41.9 Sepsis, unspecified organism (principal); J96.21 Acute and chronic respiratory failure with hypoxia; N17.9 Acute kidney failure, unspecified; J18.9 Pneumonia, unspecified organism; E87.0 Hyperosmolality and hypernatremia; E87.4 Mixed disorder of acid-base balance; I27.2 Other secondary pulmonary hypertension; E83.39 Other disorders of phosphorus metabolism; E86.0 Dehydration; J44.0 Chronic obstructive pulmonary disease with (acute) lower respiratory infection; E66.01 Morbid (severe) obesity due to excess calories; Z99.81 Dependence on supplemental oxygen; D63.8 Anemia in other chronic diseases classified elsewhere; E87.70 Fluid overload, unspecified; R73.9 Hyperglycemia, unspecified; E87.5 Hyperkalemia; I10 Essential (primary) hypertension; E78.5 Hyperlipidemia, unspecified; N28.9 Disorder of kidney and ureter, unspecified; I73.9 Peripheral vascular disease, unspecified; G47.33 Obstructive sleep apnea (adult) (pediatric); Z68.32 Body mass index [BMI] 32.0-32.9, adult; Z79.899 Other long term (current) drug therapy; Z79.52 Long term (current) use of systemic steroids; Z79.82 Long term (current) use of aspirin; Z86.718 Personal history of other venous thrombosis and embolism; Z82.49 Family history of ischemic heart disease and other diseases of the circulatory system
CPT/HCPCS: 36569; 51702; 71010; 71275; 74020; 80048; 80053; 80069; 80202; 81001; 82306; 82550; 82553; 82805; 82948; 83036; 83605; 83735; 83880; 84100; 84484; 85025; 85027; 85379; 85610; 85730; 87040; 87088; 93005; 93306; 93970; 94640; 94660; 94761; 94762; 96361; 96365; 96367; 96372; 96375; C9113; J0360; J0696; J1170; J1630; J1650; J1940; J2060; J2185; J2370; J2405; J2920; J2930; J3370; J7030; J7050; J7070; J7512; Q9967; S0179; 97110-GO; 97110-GP; 97530-GP; 99285-25; P9047; S0164

== ENCOUNTER 2016-11-02 16:32 | Inpatient (IN) ==
--- NOTE | 2016-11-02 16:55 | PROVIDER DOCUMENTATION ---
HPI-General Adult - General Stated Complaint: CP Time Seen by Provider: 11/02/16 16:50 Source: patient, EMS Allergies/Adverse Reactions: Patient Allergies Allergy/AdvReac Type Severity Reaction Status Date / Time morphine Allergy Intermediate NAUSEA/VOMI Verified 09/30/16 01:50 TING Penicillins Allergy Intermediate ITCHING Verified 09/30/16 01:50 doxycycline Allergy Unknown Unknown Verified 09/30/16 01:50 codeine [Codeine] Allergy ITCHING Verified 09/30/16 01:50 levofloxacin [From Levaquin] Allergy ITCHING Verified 09/30/16 01:50 Home Medications: Home Medication List Medication Instructions Recorded Confirmed Last Taken Type Esomeprazole Magnesium [Nexium] 40 mg PO DAILY 12/29/15 08/01/16 08/01/16 History Fluticasone/Vilanterol [Breo 1 puff PO DAILY 12/29/15 08/01/16 08/01/16 History Ellipta 100-25 Mcg INH] Montelukast Sodium [Singulair] 10 mg PO HS 12/29/15 08/01/16 07/31/16 History PRAVAstatin [Pravachol] 20 mg PO QHS 12/29/15 08/01/16 07/31/16 History Sennosides [Senokot] 8.6 mg PO HS 12/29/15 08/01/16 07/31/16 History Budesonide/Formoterol Fumarate 10.2 gm IH BID 08/01/16 08/01/16 08/01/16 History [Symbicort 160-4.5 Mcg Inhaler] Cetirizine HCl [Zyrtec] 10 mg PO QAM 08/01/16 08/01/16 08/01/16 History Lisinopril 10 mg PO QHS 08/09/16 08/09/16 07/31/16 History Albuterol 2.5MG/Ipratrop 0.5MG 3 ml INH RTQ4H #0 neb 08/10/16 Unknown Rx [Duoneb (A & A)] Azithromycin [Zithromax] 500 mg PO DAILY #5 tablet 08/10/16 Unknown Rx Ergocalciferol (Vitamin D2) 50,000 unit PO Q7D capsule 08/10/16 Unknown Rx [Vitamin D] Furosemide [Lasix] 20 mg PO DAILY #0 tablet 08/10/16 Unknown Rx Prednisone 20 mg PO DIRECTED #60 tablet 08/10/16 Unknown Rx Alprazolam 0.5 mg PO BID PRN #30 tablet 10/18/16 Unknown Rx Diltiazem C.d. [Cardizem Cd] 240 mg PO DAILY #30 capsule 10/18/16 Unknown Rx Hydrocodone/Acetaminophen [Nora 1 each PO Q4-6H PRN PRN #30 tablet 10/18/16 Unknown Rx 5-325 Tablet] - History of Present Illness -Gen Adult Nature of Presenting Problems: Pt. is 61 yof that presents by EMS from a NH with c/o SOB. Pt. is awake but only answers some questions and other times does not. Pt. is currently in some respiratory distress and is denying any CP. EMS states the patient was diagnosed with pneumonia two days ago but that the NH was advised by their doctor not to start antibiotics yet. The patient denies any pain but it is unclear how accurate the answers are. Family is on the way but not at bedside at time of exam. Location of Pain/Injury: reports: none. denies: head, face, mouth, neck, chest , upper extremity, hand(s), abdomen, back, pelvis, genitalia, lower extremity, feet, upper body, lower body, generalized Pain Radiation: reports: no radiation Quality of Pain: reports: none. denies: aching, burning, cramping, dull, fullness, indigestion, pressure, sharp, stabbing, tearing, throbbing, tightness Severity: reports: severe. denies: mild, moderate Onset/Duration: reports: unsure, gradual Timing: reports: still present, constant, changing over time, getting worse. denies: improving, gone now, resolved prior to arrival, intermittent Context/Activities at Onset: reports: none. denies: recent emotional stress, recent physical stress, recent trauma history, possible bad food, cold exposure , out of country travel Modifying Factors: improves with: nothing Associated Symptoms: reports: cough, fatigue, malaise, shortness of breath, weakness. denies: anxiety, arm pain, back/neck pain, chest pain, constipation, diaphoresis, diarrhea, dizziness, EENT symptoms, fever/chills, genitourinary problems, headaches, heartburn, joint pain, loss of appetite, muscle aches, sinus congestion/drainage, nausea, rash, seizure, sensory/motor loss, pain with inspiration, swelling/mass in abdomen, syncope, vomiting, trouble walking Similar Symptoms Previously?: Yes Recently seen or treated by another doctor?: No Review of Systems - Adult - REVIEW OF SYSTEMS - ADULT Constitutional: reports: see HPI. denies: chills, fever, fatique Eyes: reports: see HPI. denies: discharge, blurred vision, double vision Ears, Nose, Mouth & Throat: reports: see HPI. denies: ear discharge, ear pain, hearing loss, nose pain, loose teeth, mouth/dental pain, throat pain, throat swelling Cardiovascular: reports: see HPI, edema, orthopnea. denies: chest pain, irregular heart rate, palpitations, syncope Respiratory: reports: see HPI, cough, dyspnea on exertion, shortness of breath, wheezing. denies: excessive sputum production, pleurisy Gastrointestinal: reports: see HPI. denies: abdominal pain, hematemesis, diarrhea, nausea, vomiting Genitourinary: reports: see HPI. denies: dysuria, discharge, flank pain, hematuria, incontinence, urgency Musculoskeletal: reports: see HPI. denies: bone pain, back pain, joint pain, muscle aches, neck pain Integumentary: reports: see HPI. denies: hives, itching, rash, skin thickening Neurological: reports: see HPI. denies: ataxia, headache/migraines, numbness, seizure, tremors Psychiatric: reports: see HPI. denies: anxiety, depression, emotional problems , insomnia, panic attacks, suicidal thoughts Past History - Adult - PAST MEDICAL HISTORY-ADULT Review of Records: reports: Old Records Reviewed, Nursing Assessment Review, Medications Reviewed, Social history reviewed & non-contributory. Major Childhood Illnesses: reports: denies history Cardiovascular: reports: HTN, hyperlipidemia, PAD Respiratory: reports: asthma, COPD (home 02 @ 3L per [place]), sleep apnea Gastrointestinal: reports: denies history Obstetrical/Gynecological: reports: denies history Genitourinary: reports: denies history Musculoskeletal: reports: denies history, arthritis Neurological: reports: denies history Endocrine/Immune: reports: denies history Other Conditions: reports: denies history, MRSA - PRIOR SURGERIES/PROCEDURES Surgical/Procedure History: reports: appendectomy, cholecystectomy, cardiac stent, hysterectomy, - PRIOR HOSPITALIZATIONS Prior Hospitalizations: reports: none - IMMUNIZATION STATUS Childhood Immunizations: UTD Flu Vaccine: See Nurse Assessment - FAMILY HISTORY Family History: reviewed, not pertinent - SOCIAL HISTORY Smoking: denies Physical Exam-General - PHYSICAL EXAM-ADULT Initial Vital Signs Reviewed: Yes - CONSTITUTIONAL General Appearance: moderate distress, obese, lethargic, slow to respond. negative: thin, anxious, obtunded, combative - EYES Eyes: PERRL/EOMI, pink conjunctivae. negative: conjuctival exudate, scleral icterus, subconjunctival hemorrhage - HEAD, EARS, NOSE, MOUTH & THROAT HENMT: normocephalic/atraumatic, moist mucous membranes. negative: angioedema, frontal tenderness, maxillary tenderness - NECK Neck: non-tender, full range of motion, supple, normal inspection. negative: lymphadenopathy, trachial deviation, thyromegaly - RESPIRATORY Respiratory: respiratory distress, rhonchi (Bilaterally), retractions, increased rate. negative: crackles, rales, stridor, wheezing - CARDIOVASCULAR Cardiovascular: regular rate, rhythm, no JVD, no murmur, tachycardia. negative : friction rub, irregularly irregular - CHEST (BREASTS) Chest/Breast: deferred - GASTROINTESTINAL (ABDOMEN) Abdominal Exam: normal bowel sounds, non tender, soft, other (There is periumbilical eccymosis noted and the patient has a Hx of recieving Lovenox shots.). negative: distended, guarding, rigid, rebound, tenderness, hernia, mass - GENITOURINARY Female Genitalia/Pelvic Exam: deferred Rectal Exam: deferred Hemoccult Exam: deferred - LYMPHATIC Lymphatic: no adenopathy. negative: axilla node tender, cervical node tenderness - MUSCULOSKELETAL Back Exam: normal inspection, no CVA tenderness, no vertebral tenderness. negative: ecchymosis, swelling, vertebral tenderness Extremity: pedal edema, swelling. negative: deformity, erythema, inflammation, tenderness Peripheral Pulses: radial (R): 1+, radial (L): 1+ - SKIN Integumentary: ecchymosis (Periumbilical), pallor. negative: cyanosis, diaphoresis, erythema, jaundice, mottled, petechiae, purpura, rash, swelling, tenderness - NEUROLOGIC Neurologic: grossly normal, no motor/sensory deficits. negative: aphasia, facial droop, focal weakness, motor weakness, sensory deficit - PSYCHIATRIC Psych/Mental Status: disoriented x 3. negative: anxious, paranoid, tearful Progress - PLAN OF CARE/RESULTS Progress/Plan/Lab Results: Discussed results and plan of care with patient. Patient agrees with plan and verbalizes understanding. - XRAY 1 XRAY Study: Chest XRAY Interpretation: vascular congestion and pneumonia (Jame) - CONSULTS/PCP/HOSPITALIST Notification #1 *Consult/PCP/Hospitalist*: Dr. French Time Discussed: 18:07 Reason/Comments: Admission Consult Disposition: Will see in ED, Admit Departure - Departure Time of Disposition Order: 16:58 DIAGNOSIS: Hypoxemia, CO2 retention, COPD exacerbation, Generalized edema UTI (urinary tract infection) Qualifiers: Urinary tract infection type: acute cystitis Hematuria presence: without hematuria Qualified Code(s): N30.00 - Acute cystitis without hematuria Pneumonia Qualifiers: Pneumonia type: due to unspecified organism Laterality: right Lung location: unspecified part of lung Qualified Code(s): J18.9 - Pneumonia, unspecified organism Disposition: ADMITTED INPATIENT 09 Certified Medical Emergency: Emergent Condition: Serious Referrals: None,PCP [Primary Care Provider] - Attestation - Physician/ FUNMILAYO Attestation Patient care was provided by Advanced Practice Provider:: Yes Advanced Practice Provider:: Sunita Kilgore Advanced Practice Provider documentation review:: The Mid-level provider documentation, treatment plan and medical decision making was reviewed by the physician who agrees with all treatment and medical decision making by the [facility].
[2016-11-02] MEDS ORDERED: ZITHROMAX 500 MG/NS 250 ML IV ONE (17:20)
[2016-11-02] MEDS ORDERED: ROCEPHIN 1 GM/NS 50 ML IV ONE (17:20)
[2016-11-02 17:27] LABS: EOS# 0.06 X1000 (0.0-0.7); EOS% 0.7 % (0.0-10.0); HEMATOCRIT 28.2 % (37.0-47.0); HEMOGLOBIN 8.2 g/dL (12.0-16.0); IMM GRAN# 0.23 X1000 (0.0-0.04); IMM GRAN% 2.5 % (0.0-0.5); LYMPH% 18.5 % (20.5-51.1); MANUAL DIFF NEEDED? YES; MCH 27.3 PG (27-31); MCHC 29.1 g/dL (33-37); MONO# 0.44 X1000 (0.11-0.59); MONO% 4.8 % (1.7-9.3); MPV 10.3 FL (7.4-10.4); NEUT% 71.5 % (42.2-75.2); PLT 162 X1000 (130-400)
[2016-11-02 17:28] LABS: URINE MICRO REVIEW NEEDED? NO; URINE SOURCE CATH
--- NOTE | 2016-11-02 17:28 | ED EKG INTERP ---
EKG Interpretation - EKG Time of EKG reading by physician:: 16:51 EKG Read and Signed by:: Og Zhao EKG Interpretation (*Must complete 3 of following elements*): Normal Rate: 92 Rhythm: nsr Windfall: normal QRS: other (low voltage) MN Interval: normal ST Wave: normal
[2016-11-02 17:34] LABS: BILIRUBIN URINE NEGATIVE (NEGATIVE); BLOOD URINE SMALL (NEGATIVE); COLOR YELLOW; GLUCOSE URINE NEGATIVE (NEGATIVE); LEUKOCYTES URINE LARGE (NEGATIVE); NITRITE URINE NEGATIVE (NEGATIVE); PH URINE 7.5; PROTEIN URINE 70 mg/dL (NEGATIVE); SP GRAVITY URINE 1.016; TURBIDITY URINE HAZY (CLEAR); UROBILINOGEN URINE NORMAL (NORMAL)
[2016-11-02 17:35] LABS: UR EPITHELIAL CELLS <10 /HPF (<10); URINE BACTERIA 4+ /HPF; URINE CULTURE NEEDED? YES; URINE RBC <10 /HPF (<10); URINE WBC TNTC /HPF (<10)
[2016-11-02 17:49] LABS: ALBUMIN 2.7 g/dL (3.5-5.0); CALCIUM 8.5 mg/dL (8.8-10.2); POTASSIUM 5.1 mmol/L (3.5-5.1); TOTAL BILIRUBIN 0.62 mg/dL (0.20-1.00); TOTAL PROTEIN 6.4 g/dL (6.3-8.3)
[2016-11-02 17:50] LABS: ALLEN TEST YES; BE 10.6 mmoll (-3.0-3.0); BLOOD TYPE ARTERIAL; DRAW SITE R RADIAL; METHB 1.4 % (0.0-1.5); O2(CT) 10.1 mL/dL (15.0-23.0); PO2(98.6) 56 mmHg (60-100); SAMPLE BLOOD; SAO2 91.9 % (95.0-100.0); pH(98.6) 7.44 (7.35-7.45)
[2016-11-02 17:51] LABS: PCO2(98.6) 53 mmHg (35-45)
[2016-11-02 17:52] LABS: MODALITY CANNULA
--- NOTE | 2016-11-02 18:07 | Diag Imaging Result Document ---
PROCEDURE NAME: CHEST-PORTABLE - 11/02/2016 PORTABLE CHEST COMPARISON: 10/16/16 FINDINGS: Previously there was a right-sided PICC line. This has been removed. There are infiltrates in the mid right lung which have developed. The heart is not enlarged. The vessels are not distended. No pleural effusions identified. IMPRESSION: Mid right lung infiltrates.
[2016-11-02 18:26] LABS: BANDS 8 % (0-1); LYMPHS 10 % (21-51); MONO 2 % (1-9); NRBC 3 % (0-0)
[2016-11-02 18:29] LABS: HYPOCHROM 1+; POLYCHROM 1+
[2016-11-02] MEDS ORDERED: MERREM 500 MG in NS 50 ML IV ONE (18:57)
[2016-11-02] MEDS ORDERED: VANCOMYCIN IV PER PHARMACY MISC SCH (19:00)
[2016-11-02] MEDS ORDERED: ALBUMIN 25% IV ONE (19:13)
[2016-11-02] MEDS ORDERED: SOLU-CORTEF IV ONE (19:28)
[2016-11-02] MEDS ORDERED: SOLU-MEDROL IV SCH (19:30)
[2016-11-02 19:45] LABS: IRON SATURATION 15 %; TIBC 200 ug/dL; TOTAL IRON 30 ug/dL (49-151); UNBOUND IRON 170 ug/dL (112-346)
[2016-11-02] MEDS ORDERED: SOLU-MEDROL ONE (19:45)
[2016-11-02 19:50] LABS: UR CREAT RANDOM 69.5 mg/dL (11-20)
[2016-11-02 19:52] LABS: FREE T4 1.4 ng/dL (0.93-1.70)
[2016-11-02 19:57] LABS: UR AMPHETAMINES QUAL NONE DETECTED (NONE DETECT); UR BARBITUATES QUAL NONE DETECTED (NONE DETECT); UR BENZODIAZEPIN QUAL PRESUMPTIVE POSITIVE (NONE DETECT); UR CANNABINOIDS QUAL NONE DETECTED (NONE DETECT); UR COCAINE QUAL NONE DETECTED (NONE DETECT); UR METHADONE QUAL NONE DETECTED (NONE DETECT); UR OPIATES QUAL PRESUMPTIVE POSITIVE (NONE DETECT); UR OXYCODONE QUAL NONE DETECTED (NONE DETECT); UR PCP QUAL NONE DETECTED (NONE DETECT)
--- NOTE | 2016-11-02 20:33 | HISTORY AND PHYSICAL ---
PRIMARY CARE PHYSICIAN: None. The patient is currently a resident of [facility]. PRESENTING COMPLAINT: Altered mental status. Confusion. HISTORY OF PRESENTING COMPLAINT: Ms. Mendoza is a 61-year-old, female who has been in and out of the hospital since July. According to the daughter who was at the bedside, the patient was admitted in June for about 2 weeks. Discharged to [facility] and went home for just 3 days and then had to come back and was admitted again for over 3 weeks. She was then sent to [facility]. The last time the patient was admitted was 09/30/2016 and discharged on 10/18/2016. She has been in [facility] for just 2 weeks. According to the daughter even when the patient was being discharged she was having some hallucinations but since the past couple of days she has been extremely confused, not very responsive, and so she asked the rehabilitation center people to do some basic labs. The daughter was told that the patient has pneumonia but it was viral and they did not treat it with any antibiotics. However, she continued to be extremely altered and today she was just not responsive. She was extremely weak and would not get out of bed, so she demanded that the patient be brought to the hospital. Upon presentation, patient was evaluated. Blood pressure was 113/72 and it dropped to about 89/59, pulse 87, respiration is 18, temperature is 99.0 degrees. We evaluated the patient for admission due to altered mental status. PAST MEDICAL HISTORY: 1. Chronic obstructive pulmonary disease on home O2. 2. History of peripheral artery disease. 3. Obstructive sleep apnea. 4. Obesity. 5. Hypertension. 6. Hyperlipidemia. PAST SURGICAL HISTORY: 1. Femoropopliteal bypass. 2. Appendectomy. 3. Cholecystectomy. 4. Hysterectomy. 5. deliveries. SOCIAL HISTORY: The patient quit smoking about 3-1/2 years ago. Denies any alcohol use or any drug use. Patient is currently a resident of [facility]. FAMILY HISTORY: Noncontributory. ALLERGIES: 1. Penicillin. 2. Codeine. 3. Levaquin. 4. Doxycycline. HOME MEDICATIONS: Reviewed in the chart. REVIEW OF SYSTEMS: The patient herself is not able to give any review so we conducted a review of systems with the daughter who is at the bedside. The positive findings are in the HPI. PHYSICAL EXAMINATION: VITAL SIGNS: Blood pressure 89/56, pulse is 60, respirations 22, temperature is 99.0, pulse 85. GENERAL: Ms. Mendoza is a 61-year-old, female. She looks extremely older than he age. She is in bed. She does not seem to be in any distress. We have to prompt her multiple times to open her eyes. Patient is very drowsy and not very communicative. HEENT: Mucus is pink and moist. Anicteric. Acyanotic. NECK: Supple. CHEST: Good air entry bilateral. There are a few bibasilar crepitations more so to the right posterior lung field. There is no accessory muscle use. CARDIOVASCULAR: Regular rate and rhythm. There are no murmurs, rubs or gallops. ABDOMEN: Soft, distended. There are some ecchymotic lesions on the abdomen which, according to the daughter, patient sustained that on the previous admission because of DVT prophylaxis/Lovenox injections.Patient also has old midline anterior abdominal wall surgical scar. Bowel sounds were present. EXTREMITIES: About 2+ edema in the lower extremities but is not easily pitting. CENTRAL NERVOUS SYSTEM: Patient is drowsy but easily arousable. She is very limited in speech but she is able to follow some basic commands. She is able to move extremities upon painful stimulation. LABORATORY DATA: WBC is 9.17, hemoglobin is 8.2, platelet count of 162,000. There are 8% bands on the peripheral smear. Chemistry is reviewed. Sodium is 144, potassium is 5.1, chloride 97, bicarbonate is 33, BUN is 59, creatinine is 2.8, glucose is 155, pro BNP is 527 , albumin is 2.7. Chest x-ray: Shows mid right lung infiltrates. ASSESSMENT: Ms. Mendoza is a 61-year-old, female, who has been having progressively worsening mental status and was brought in for evaluation. ASSESSMENT: 1. Altered mental status secondary to toxic metabolic encephalopathy likely due to underlying urinary tract infection. 2. Suspected urinary tract infection. Patient has very dirty urine. The Jimenes catheter has almost purulent material in it. The urinalysis shows too numerous to count WBCs, leukocytes large. There is a previous culture which was Proteus mirabilis and it was only sensitive to amikacin, levofloxacin and Zosyn Patient is allergic to levofloxacin in the chart and I am not sure if this has converted into ESBL. I am going to use the same carbapenem to cover both the lung infection and the urinary tract infection. 3. Acute kidney injury. Creatinine is up to 2.8 from 0.7 the last time she was discharged. We will do some urine studies including a urine sodium, urine creatinine. We will get FeNa to give us some ideas as to what type of acute kidney injury it is. Patient's Bun/creatinine ration seems to be intravascularly depleted, however , she also has some edema so we will get the studies to guide us if the patient will need fluids or we will have to restrict it. 4. Protein calorie malnutrition. 5. Chronic ventilatory failure: pCO2 on the ABG is 53 but patient chronically retains CO2. 6. Chronic respiratory acidosis with metabolic compensation. 7. History of chronic obstructive pulmonary disease on home O2. 8. Edematous state. Patient seems remarkably edematous, however, it is not pitting. I wonder if it is due to hypoalbuminemia or there is underlying hypothyroidism or any endocrinopathy that could cause this state including adrenal insufficiency. We are going to check the TSH, T4 and cortisol level, and make further recommendations. We will give a dose of albumin. 9. Right middle lobe infiltrate, questionable pneumonia. Patient does have multiple sputum cultures positive for Pseudomonas and I am wondering if this is the cause of the pneumonia. I will cover her for pseudomonas with gabapentin. 10. Normocytic anemia. Patient does have documented iron deficiency. However, in the setting of the acute infection we will not use any iron. I will go ahead and do the iron studies again to see how bad this is so we can replenish it once the infection is under control. Once we get the results of the labs ordered then we will give further recommendations. [facility]
[2016-11-02] MEDS: HEPARIN SUBQ SCH (21:37)
[2016-11-02] MEDS ORDERED: VANCOMYCIN 1,500 MG in NS 250 ML IV ONE (22:00)
[2016-11-02 22:52] LABS: PROTIME 10.6 Seconds (9.2-11.7)
[2016-11-02 23:21] LABS: PTT 19.9 Seconds (22.0-36.0)
[2016-11-03] MEDS: SENOKOT PO SCH ×2 (03:30→20:39)
[2016-11-03] MEDS: PRAVACHOL PO SCH ×2 (03:30→20:39)
[2016-11-03] MEDS: DUONEB (A & A) INH SCH ×9 (04:28→23:50)
[2016-11-03] MEDS: SOLU-MEDROL IV SCH ×3 (05:52→20:40)
[2016-11-03 07:11] LABS: BASO% 1.4 % (0.0-0.8); EOS# 0.05 X1000 (0.0-0.7); EOS% 0.7 % (0.0-10.0); HEMOGLOBIN 6.6 g/dL (12.0-16.0); IMM GRAN# 0.15 X1000 (0.0-0.04); IMM GRAN% 2.1 % (0.0-0.5); LYMPH# 1.06 X1000 (1.2-3.4); LYMPH% 14.8 % (20.5-51.1); MANUAL DIFF NEEDED? YES; MCH 26.8 PG (27-31); MCHC 28.7 g/dL (33-37); MCV 93.5 FL (81-99); MONO# 0.27 X1000 (0.11-0.59); MONO% 3.8 % (1.7-9.3); MPV 10.9 FL (7.4-10.4); NEUT% 77.2 % (42.2-75.2); PLT 141 X1000 (130-400); RBC 2.46 XMIL (4.2-5.4)
[2016-11-03 07:27] LABS: ALBUMIN 3.4 g/dL (3.5-5.0); CALCIUM 8.2 mg/dL (8.8-10.2); MAGNESIUM 3.1 mg/dL (1.5-2.7); POTASSIUM 4.5 mmol/L (3.5-5.1); TOTAL BILIRUBIN 0.44 mg/dL (0.20-1.00); TOTAL PROTEIN 6.2 g/dL (6.3-8.3)
[2016-11-03] MEDS: BREO ELLIPTA 100/25 MCG INH INH SCH (07:32)
--- NOTE | 2016-11-03 07:44 | EKG Report ---
Test Performed on : 11/02/2016 4:51:58 PM Test Reason : SOB Blood Pressure : / mmHG Vent. Rate : 092 BPM Atrial Rate : 092 BPM P-R Int : 152 ms QRS Dur : 074 ms QT Int : 348 ms P-R-T Axes : 055 061 036 degrees QTc Int : 430 ms Normal sinus rhythm. Low voltage QRS Borderline ECG When compared with ECG of 30-SEP-2016 01:46, Vent. rate has decreased BY 57 BPM T wave inversion less evident in Anterior leads Unconfirmed Result
[2016-11-03] MEDS ORDERED: NS 500 ML IV ONE (07:45)
[2016-11-03 08:04] LABS: BANDS 4 % (0-1); HYPOCHROM 2+; LYMPHS 8 % (21-51); NRBC 5 % (0-0); POLYCHROM 1+
[2016-11-03] MEDS: MERREM 500 MG in NS 50 ML IV SCH (08:56)
[2016-11-03] MEDS: NEXIUM PO SCH (08:56)
[2016-11-03] MEDS: CARDIZEM CD PO SCH (08:56)
[2016-11-03] MEDS: HEPARIN SUBQ SCH ×3 (08:57→20:55)
[2016-11-03] MEDS ORDERED: DULCOLAX PR ONE (11:45)
[2016-11-03] MEDS: NS 1,000 ML IV SCH (12:33)
[2016-11-03] MEDS ORDERED: NS 250 ML ONE (13:48)
--- NOTE | 2016-11-03 16:22 | PROGRESS NOTE ---
DATE: 11/03/2016 SUBJECTIVE: Family members at the bedside. As per the sister, this patient is getting better. She is able to recognize the family members and also she is able to say her name. She is still confused but mostly on and off. She was oriented in place but not in time, and sometimes she was talking nonsense. Otherwise, she is feeling better and she is breathing better with mild belly pain. OBJECTIVE: Vital Signs: Temperature 98, pulse 97, respiratory rate 18, blood pressure 138/53, oxygen saturation 93 on 4 L of nasal cannula. HEENT: Head normocephalic. No trauma. PERRLA. Neck: Supple. No JVD. No masses. Central trachea. Chest: Decreased air entry bilaterally. Prolonged expiatory phase. There are some base crepitations. Cardiovascular: RRR. No murmurs. Abdomen: Soft, distended. She presents multiple bruises mostly at the level of the periumbilical area and lower abdomen. As per the sister, this is related with the anticoagulation treatment from previous admission. Extremities: 2+ lower extremity edema. Neurological Examination: The patient is alert, she is oriented x2. She is talking nonsense on and off. She is not oriented in time. She moves all 4 extremities. LABORATORY: WBC 7.1, hemoglobin 6.6, hematocrit 23, platelets 141,000, sodium 147, potassium 4.5, chloride 99, bicarbonate 27, BUN 48, creatinine 1.6, glucose 169, calcium 9.2, magnesium 3.1, albumin 3.4. ASSESSMENT AND PLAN: 1. Altered mental status, likely secondary to toxic metabolic encephalopathy. This patient is having a urinary tract infection and probably she is also having pneumonia. We will continue with antibiotics. This patient is getting better. 2. Urinary tract infection. We have a positive culture result that showed gram negative rods. We will continue to monitor that and we will continue with the antibiotics and fluids. 3. Acute kidney injury. This is getting better, we will continue with the same management. 4. Protein calorie malnutrition. This patient is tolerating a little bit better the diet. I asked for a swallow evaluation and this patient has been placed on a mechanical soft diet. 5. History of chronic obstructive pulmonary disease, on home oxygen. Continue with oxygen here. No signs of exacerbation. 6. Possible right middle and lower lobe pneumonia. We will continue with the antibiotics. We will monitor. 7. Normocytic anemia. This patient does have documented iron deficiency but since this patient has an infection we are not going to use any item. This patient will receive 1 PRBC. 8. Constipation. They asked for a suppository and they will continue with bowel regimen. MTDD
[2016-11-03] MEDS ORDERED: TYLENOL PO ONE (18:27)
[2016-11-04] MEDS: MERREM 500 MG in NS 50 ML IV SCH ×3 (00:11→21:11)
[2016-11-04] MEDS: DUONEB (A & A) INH SCH ×6 (04:02→23:36)
[2016-11-04] MEDS: SOLU-MEDROL IV SCH ×3 (05:06→21:10)
[2016-11-04 07:14] LABS: BASO% 1.1 % (0.0-0.8); HEMATOCRIT 31.5 % (37.0-47.0); HEMOGLOBIN 9.5 g/dL (12.0-16.0); IMM GRAN# 0.22 X1000 (0.0-0.04); IMM GRAN% 3.4 % (0.0-0.5); LYMPH# 0.82 X1000 (1.2-3.4); LYMPH% 12.6 % (20.5-51.1); MANUAL DIFF NEEDED? YES; MCH 25.8 PG (27-31); MCHC 30.2 g/dL (33-37); MCV 85.6 FL (81-99); MONO# 0.27 X1000 (0.11-0.59); MONO% 4.1 % (1.7-9.3); MPV 10.4 FL (7.4-10.4); NEUT% 78.8 % (42.2-75.2); PLT 118 X1000 (130-400); RBC 3.68 XMIL (4.2-5.4)
[2016-11-04 07:31] LABS: CALCIUM 8.7 mg/dL (8.8-10.2); POTASSIUM 3.4 mmol/L (3.5-5.1)
[2016-11-04] MEDS: NS 1,000 ML IV SCH (07:34)
[2016-11-04] MEDS: BREO ELLIPTA 100/25 MCG INH INH SCH (07:38)
[2016-11-04 07:42] LABS: BANDS 8 % (0-1); LYMPHS 6 % (21-51); MONO 2 % (1-9); NRBC 2 % (0-0)
[2016-11-04 07:43] LABS: HYPOCHROM 1+
[2016-11-04] MEDS ORDERED: KLOR-CON PO ONE (07:52)
[2016-11-04] MEDS: D5W 1,000 ML IV SCH ×2 (08:21→19:03)
[2016-11-04] MEDS: NEXIUM PO SCH (08:23)
[2016-11-04] MEDS: HEPARIN SUBQ SCH ×2 (08:23→21:10)
[2016-11-04] MEDS: CARDIZEM CD PO SCH (08:23)
[2016-11-04] MEDS ORDERED: LASIX IV ONE (11:16)
[2016-11-04] MEDS ORDERED: VANCOMYCIN 1,300 MG in NS 250 ML IV SCH (13:00)
--- NOTE | 2016-11-04 15:48 | PROGRESS NOTE ---
DATE: 11/04/2016 SUBJECTIVE: No family members at the bedside, this patient is not complaining of any specific problems at this moment but she has been asking for her sister, this patient is still confused, compared with yesterday she is about the same. Today she is in mild respiratory distress but she looks also anxious and asking for her sister. OBJECTIVE: Vital Signs: Temperature 100.1 degrees, pulse 85, respiratory rate 16, blood pressure 135/55, oxygen saturation 95% on 4 L of nasal cannula. HEENT: Head normocephalic. No trauma. PERRLA. Neck: Supple. No JVD. No masses. Central trachea. Chest: Decreased air entry bilaterally. Prolonged expiratory phase. There is some base crepitus. Cardiovascular: RRR. No murmurs. Abdomen: Soft, obese, mildly distended. She presents with multiple bruises, mostly at the level of the periumbilical area and lower abdomen. Yesterday I talked to the sister and apparently this is related to the anticoagulation treatment during the previous admission. Extremities: 2+ lower extremity edema. Neurological: The patient is alert. She is oriented x1, but she has been on and off, she is talking nonsense on and off. She is not oriented in time. She moves all 4 extremities. LABORATORY: WBC 6.5, hemoglobin 9.5, hematocrit 31.5, platelets 118,000. Sodium 151, potassium 3.4, chloride 106, bicarbonate 31, BUN 35, creatinine 1, glucose 267, calcium 8.7. ASSESSMENT AND PLAN: 1. Altered mental status, likely secondary to toxic metabolic encephalopathy, this patient is having a urinary tract infection and probably she is also having pneumonia, we will continue with her antibiotics, compared with the admission she is better. 2. Urinary tract infection. We have a positive result that showed Klebsiella, for now we are going to continue with the antibiotics, the fluids were stopped because this patient has some fluid overload. 3. Acute kidney injury, this is getting better. She is almost at her baseline, I will stop the fluids. This patient is eating right, the kidney function is almost at her baseline. 4. Hypernatremia. I will increase the oral intake of water, she also received around 300 mL of D5 water, will monitor the sodium at. 5. Hypokalemia. I will replace the potassium. 6. Fluid overload, I will stop the fluids and I will give her 1 dose stat of furosemide and will monitor. 7. Possible right middle and lower lobe pneumonia. Continue with antibiotics. 8. Normocytic anemia. The patient does have documented iron deficiency anemia but since this patient has an infection we are not going to use any iron. This patient received already 1 PRBC and the hemoglobin improved. 9. Constipation. We will continue with the same management.
[2016-11-04] MEDS: TYLENOL PO PRN (21:09)
[2016-11-04] MEDS: SENOKOT PO SCH (21:11)
[2016-11-04] MEDS: PRAVACHOL PO SCH (21:11)
[2016-11-04] MEDS: HUMULIN R SUBQ SCH (21:27)
[2016-11-05] MEDS: DUONEB (A & A) INH SCH ×6 (03:44→23:45)
[2016-11-05] MEDS: SOLU-MEDROL IV SCH ×3 (04:18→21:29)
[2016-11-05] MEDS: D5W 1,000 ML IV SCH ×2 (04:30→17:22)
[2016-11-05] MEDS: HUMULIN R SUBQ SCH ×5 (06:47→21:30)
[2016-11-05 07:03] LABS: BASO% 0.8 % (0.0-0.8); HEMATOCRIT 34.4 % (37.0-47.0); HEMOGLOBIN 10.3 g/dL (12.0-16.0); IMM GRAN# 0.42 X1000 (0.0-0.04); IMM GRAN% 5.4 % (0.0-0.5); LYMPH# 0.82 X1000 (1.2-3.4); LYMPH% 10.6 % (20.5-51.1); MANUAL DIFF NEEDED? YES; MCH 25.8 PG (27-31); MCHC 29.9 g/dL (33-37); MCV 86.2 FL (81-99); MONO# 0.36 X1000 (0.11-0.59); MONO% 4.6 % (1.7-9.3); MPV 11.7 FL (7.4-10.4); NEUT% 78.6 % (42.2-75.2); PLT 124 X1000 (130-400); RBC 3.99 XMIL (4.2-5.4)
[2016-11-05 07:10] LABS: AGAP 15; BUN 29 mg/dL (8-22); CALCIUM 8.7 mg/dL (8.8-10.2); CHLORIDE 103 mmol/L (98-107); COSMO 314; POTASSIUM 3.5 mmol/L (3.5-5.1); SODIUM 149 mmol/L (136-145); TCO2 31 mmol/L (25-35)
[2016-11-05 07:11] LABS: BANDS 6 % (0-1); LYMPHS 4 % (21-51); MONO 4 % (1-9); NRBC 3 % (0-0)
[2016-11-05] MEDS: BREO ELLIPTA 100/25 MCG INH INH SCH (07:30)
[2016-11-05] MEDS ORDERED: INSULIN PEN NEEDLES ONE (08:02)
[2016-11-05] MEDS: CARDIZEM CD PO SCH (09:00)
[2016-11-05] MEDS: MERREM 500 MG in NS 50 ML IV SCH ×2 (09:00→21:28)
[2016-11-05] MEDS ORDERED: LANTUS SUBQ SCH (09:00)
[2016-11-05] MEDS: HEPARIN SUBQ SCH ×2 (09:00→21:30)
[2016-11-05] MEDS: NEXIUM PO SCH (09:00)
[2016-11-05] MEDS: XANAX PO SCH ×2 (12:53→21:29)
[2016-11-05 14:18] LABS: ALLEN TEST YES; BE 11.1 mmoll (-3.0-3.0); BLOOD TYPE ARTERIAL; DRAW SITE L RADIAL; METHB 1.9 % (0.0-1.5); MODALITY CANNULA; O2(CT) 14.1 mL/dL (15.0-23.0); PCO2(98.6) 47 mmHg (35-45); PO2(98.6) 68 mmHg (60-100); SAMPLE BLOOD; SAO2 96.8 % (95.0-100.0); THB 10.7 g/dL (11.5-17.4); pH(98.6) 7.49 (7.35-7.45)
--- NOTE | 2016-11-05 14:22 | CONSULTATION ---
DATE OF CONSULTATION: 11/05/2016 REFERRING PHYSICIAN: Dr. Jeffries. CHIEF COMPLAINT: Evaluation for COPD, pneumonia in a patient with sepsis UTI. HISTORY OF PRESENTING ILLNESS: A 61-year-old female with end-stage COPD, continuous home oxygen, obstructive sleep apnea, hypertension, hyperlipidemia, not compliant with home CPAP machine. We had a hard time as an outpatient to try to make a commitment to noninvasive ventilation. Presented to the hospital with altered mental status and confusion. Being treated now for pneumonia, UTI, and COPD. PAST MEDICAL HISTORY: Hypoxia, sleep apnea, end-stage COPD, hyperlipidemia, hypertension, peripheral artery disease, home oxygen, home CPAP machine. We were unable to make her commitment to BiPAP or BiPAP study in the past. PAST SURGICAL HISTORY: sections, hysterectomy, cholecystectomy, appendectomy, femoral- popliteal bypass. SOCIAL HISTORY: Recent ex-smoker. Came from rehabilitation facility. FAMILY HISTORY: COPD. ALLERGIES: Doxycycline, Levaquin, codeine, penicillin. MEDICATIONS: Home medications and hospital medications were reviewed. Medications in the hospital include Tylenol, nebulizer treatment, Xanax, Cardizem, Nexium, Breo Ellipta, heparin, insulin, Solu-Medrol, vancomycin, Pravachol, Senokot, meropenem. REVIEW OF SYSTEMS: As detailed in history of presenting illness, otherwise noncontributory. PHYSICAL EXAMINATION: General: She is awake, lethargic. Pursing lips for exhalation but very minimal to mild respiratory shortness of breath but not in acute distress. Family at the bedside. Vital Signs: Noted. Head and Neck: Trachea midline. Chest exam: A few wheezes bilaterally. Cardiac Exam: S1, S2. Abdomen: Nontender. Extremities: There is +1 pedal edema. Neurological: Awake and communicative. Slightly lethargic. LABS AND INVESTIGATIONS: Chest x-ray: Right infiltrate, pneumonia likely. CMP and CBC noted. ABG ordered. ASSESSMENT AND PLAN: This is a 61-year-old female with a past medical history as above with end- stage chronic obstructive pulmonary disease, sleep apnea, hypoxia, home oxygen, difficulty to committing to BiPAP and BiPAP studies in the past as outpatient, now has pneumonia, urinary tract infection, and chronic obstructive pulmonary disease. Agree with antibiotics, steroids, deep vein thrombosis prophylaxis. We will use noninvasive ventilation. Case discussed with the family also. Thank you for the courtesy of this consult.
[2016-11-05] MEDS: ANUSOL-HC CREAM PR SCH ×2 (16:59→21:49)
--- NOTE | 2016-11-05 17:15 | PROGRESS NOTE ---
DATE: 11/05/2016 SUBJECTIVE: This patient is still complaining of shortness of breath. This patient is still confused. Family members are at the bedside. They state that this patient has been on hospice before and the plan is if she gets better maybe she can go to a rehab center and then discharge to [facility] supervisor facility, probably with hospice. Because this patient is not getting better even though she is getting antibiotics and breathing treatment and also steroids, I will consult pulmonary department for evaluation. OBJECTIVE: Vital Signs: Temperature 97.9 degrees, pulse 108, respiratory rate 20, blood pressure 143/53, oxygen saturation of 91% on 4 L of nasal cannula. HEENT: Head normocephalic. No trauma. PERRLA. Neck: Supple. No JVD. No masses. Central trachea. Chest: Decreased air entry bilaterally. Prolonged expiatory phase. There is crepitus and scattered wheezing bilaterally. Cardiovascular: RRR. No murmurs. Tachycardic. Abdomen: Soft, obese, mildly distended. She presents with multiple bruises mostly at the level of the periumbilical area and lower abdomen. Probably this is related with the anticoagulation treatment during the previous admission and this 1. Extremities: There is 2+ lower extremity edema. No clubbing. Neurological: The patient is alert. She is oriented x1. She has been confused on and off and sometimes she is talking nonsense. She is not oriented in time. She moves all 4 extremities. LABORATORY: WBC 7.7, hemoglobin 10.3, hematocrit 34.4, platelets 124,000. Sodium 149, potassium 3.5, chloride 103, bicarbonate 31, BUN 29, creatinine 0.9, glucose 319, calcium 8.9. ASSESSMENT AND PLAN: 1. Altered mental status, likely secondary to toxic metabolic encephalopathy. This patient has a urinary tract infection and also pneumonia. We will continue with the antibiotics. Compared to admission she is better. 2. Urinary tract infection. We have a positive result that showed Klebsiella. For now we are going to continue with the same antibiotics. The fluids were stopped because she has some fluid overload. 3. Acute kidney injury, resolved. 4. Hypernatremia is getting better. I talked to the patient and she needs to drink more water. The kidney function is okay and the urine output has been fine 5. Hypokalemia. The potassium is normal today. 6. Fluid overload. Today she looks better. She received 1 dose of furosemide yesterday. We will continue to monitor. 7. Right middle and lower lobe pneumonia. Continue with antibiotics. Pulmonary department is on board. 8. Normocytic anemia. This patient does have documented iron deficiency anemia but since this patient is having an infection, we are not going to use any iron. The patient already received 1 PRBC at the beginning and the hemoglobin improved. 9. Constipation. Continue with the same management. 10. Type 2 diabetes. The glucose is uncontrolled. I will increase the dose of Lantus from 10 to 20.
[2016-11-05] MEDS: VANCOMYCIN 1,300 MG in NS 250 ML IV SCH (17:22)
[2016-11-05] MEDS: SENOKOT PO SCH (21:29)
[2016-11-05] MEDS: PRAVACHOL PO SCH (21:29)
[2016-11-06] MEDS: DUONEB (A & A) INH SCH ×6 (03:45→23:18)
[2016-11-06] MEDS: D5W 1,000 ML IV SCH (03:54)
[2016-11-06] MEDS: SOLU-MEDROL IV SCH ×3 (04:39→21:24)
[2016-11-06 04:44] LABS: ALLEN TEST YES; BE 10.2 mmoll (-3.0-3.0); BLOOD TYPE ARTERIAL; DRAW SITE R RADIAL; METHB 1.5 % (0.0-1.5); O2(CT) 20.7 mL/dL (15.0-23.0); PO2(98.6) 78 mmHg (60-100); SAMPLE BLOOD; SAO2 97.8 % (95.0-100.0); THB 15.6 g/dL (11.5-17.4); pH(98.6) 7.44 (7.35-7.45)
[2016-11-06 04:46] LABS: MODALITY BI PAP; PCO2(98.6) 54 mmHg (35-45)
[2016-11-06] MEDS: HUMULIN R SUBQ SCH ×4 (06:12→21:28)
[2016-11-06 07:23] LABS: BASO% 1.3 % (0.0-0.8); HEMATOCRIT 34.6 % (37.0-47.0); HEMOGLOBIN 10.3 g/dL (12.0-16.0); IMM GRAN# 0.66 X1000 (0.0-0.04); IMM GRAN% 7.4 % (0.0-0.5); LYMPH# 0.99 X1000 (1.2-3.4); LYMPH% 11.1 % (20.5-51.1); MANUAL DIFF NEEDED? YES; MCH 25.9 PG (27-31); MCHC 29.8 g/dL (33-37); MCV 87.2 FL (81-99); MONO# 0.46 X1000 (0.11-0.59); MONO% 5.2 % (1.7-9.3); MPV 11.1 FL (7.4-10.4); PLT 130 X1000 (130-400); RBC 3.97 XMIL (4.2-5.4)
[2016-11-06 07:39] LABS: AGAP 12; ALBUMIN 3.3 g/dL (3.5-5.0); ALKALINE PHOSPHATASE 209 U/L (32-104); BUN 30 mg/dL (8-22); CALCIUM 8.9 mg/dL (8.8-10.2); CHLORIDE 103 mmol/L (98-107); COSMO 307; GOT 44 U/L (10-30); GPT 52 U/L (10-36); POTASSIUM 3.6 mmol/L (3.5-5.1); SODIUM 148 mmol/L (136-145); TCO2 33 mmol/L (25-35); TOTAL BILIRUBIN 0.56 mg/dL (0.20-1.00); TOTAL PROTEIN 6.1 g/dL (6.3-8.3)
[2016-11-06 07:44] LABS: BANDS 6 % (0-1); HYPOCHROM OCCASIONAL; LYMPHS 8 % (21-51); MONO 2 % (1-9); NRBC 1 % (0-0)
[2016-11-06] MEDS: BREO ELLIPTA 100/25 MCG INH INH SCH (08:35)
[2016-11-06] MEDS: MERREM 500 MG in NS 50 ML IV SCH ×2 (09:23→21:24)
[2016-11-06] MEDS: NEXIUM PO SCH (09:23)
[2016-11-06] MEDS: HEPARIN SUBQ SCH ×2 (09:24→21:24)
[2016-11-06] MEDS: LANTUS SUBQ SCH (09:24)
[2016-11-06] MEDS: CARDIZEM CD PO SCH (09:26)
[2016-11-06] MEDS: XANAX PO SCH ×2 (09:27→21:25)
--- NOTE | 2016-11-06 13:05 | Diag Imaging Result Document ---
PROCEDURE NAME: CT THORAX W/O CONTRAST - 11/06/2016 CT CHEST, 11/06/2016: A CT dose reduction protocol was used. COMPARISON: Several previous chest x-rays. FINDINGS: There is severe COPD. There are patchy multilobar infiltrates on the right, most notably in the upper and lower lobes. The appearance suggests pneumonia. There is a trace right pleural effusion. The left lung is clear of infiltrate. Airways are clear. Heart size is normal. No pericardial effusion. There is severe fatty change of the liver. Upper abdominal images are otherwise unremarkable. There is a right PICC line in good position. Bony structures are intact. IMPRESSION: 1. Severe COPD. 2. Multilobar infiltrate/pneumonia on the right. Trace right pleural effusion. 3. Severe fatty liver. [facility]
[2016-11-06] MEDS: ANUSOL-HC CREAM PR SCH ×2 (13:38→21:25)
--- NOTE | 2016-11-06 15:08 | PROGRESS NOTE ---
DATE: 11/06/2016 SUBJECTIVE: The patient is sitting up in bed. She states that her bleeding is about the same. She states that she has been having bowel movements. OBJECTIVE: Vital Signs: Temperature is 98.1 degrees, blood pressure 156/73, heart rate 94, respirations 18, O2 saturation is 96% on 4 L nasal cannula. General: This is a morbidly obese female, lying in bed, in no acute distress. Head: Normocephalic, atraumatic. Heart: S1, S2. Normal. Regular rate and rhythm. Lungs: Clear to auscultation bilaterally. No crackles. No rales. Abdomen: Positive bowel sounds. Soft, obese, nontender, nondistended. Extremities: The patient does have 3+ edema involving the right upper extremity and trace edema involving the lower extremities. Neurologic: The patient is awake and alert. No focal neurologic deficits noted. LABS: White blood cell count 8.9, hemoglobin 10, hematocrit 34, platelets 130, 000. Sodium 148, potassium 3.6, chloride 103, CO2 33, BUN 30, creatinine 0.9, glucose 229. AST 44, ALT 52, alkaline phosphatase 209, albumin 3.3. ASSESSMENT AND PLAN: 1. Acute on chronic hypercapnic respiratory failure. The patient is currently on nasal cannula. The patient is being treated for pneumonia. Continue with BiPAP at night, IV abx, and bronchodilator therapy. Pulmonary is following. 2. Pneumonia. Continue on Merrem and vancomycin. We will order a CT of the chest. 3. Morbid obesity. Aware. 4. Uncontrolled insulin-dependent diabetes mellitus. Continue on Lantus plus sliding scale insulin. 5. Anxiety disorder. Continue on Xanax. 6. Vitamin D deficiency. Continue vitamin D replacement. 7. Dyslipidemia. Continue on Pravachol. 8. Deep vein thrombosis prophylaxis. Continue on heparin. 9. Continue with physical therapy. [facility]
[2016-11-06] MEDS: VANCOMYCIN 1,300 MG in NS 250 ML IV SCH (16:18)
[2016-11-06] MEDS: TYLENOL PO PRN (17:08)
[2016-11-06] MEDS ORDERED: LANTUS SUBQ SCH (21:00)
[2016-11-06] MEDS: PRAVACHOL PO SCH (21:24)
[2016-11-06] MEDS: SENOKOT PO SCH (21:27)
--- NOTE | 2016-11-06 23:36 | CONSULTATION ---
DATE OF CONSULTATION: 11/06/2016 CONCLUSION: The patient is admitted to the hospital with pneumonia. She has had recurrent episodes of pneumonia in the past year or 2. I think she is predisposed to this by virtue of having severe COPD. She also has obstructive sleep apnea which could predispose her to aspirate. She is obese and with her weight it may be difficult for her to take deep breaths. Finally the patient may have an immunoglobulin deficiency. The patient also has a Klebsiella urinary tract infection. I do not think that this is causing the patient's main problems namely pneumonia and COPD. RECOMMENDATIONS: I agree with treating the patient with vancomycin and meropenem in view of the fact that the patient has had multiple hospitalizations in the past year or 2. I have ordered pneumococcal and Legionella urinary antigens. Also I have ordered immunoglobulin levels. As mentioned above, I agree with the current antimicrobial therapy. I think it should be broad- spectrum and include multiply resistant organisms in view of the fact that the patient has been in rehab facilities and then in the hospital for pneumonia multiple times. DISCUSSION: The patient developed an altered mental status and increasing difficulty breathing. She was eventually brought to the hospital and admitted. Her CT scan of the chest shows severe COPD, fatty liver and multilobar pneumonia on the right side. Patient's CBC shows a white count of 8900, hemoglobin 10.3, and platelet count 130,000. Urine culture grew Klebsiella. Blood cultures are sterile. PAST MEDICAL HISTORY/REVIEW OF SYSTEMS: Eyes and ears: Patient denies difficulty hearing or seeing. Neck: No stiffness. Respiratory: The patient is very short of breath even at rest. She has not been coughing much. Cardiovascular: No chest pain or palpitations. GI: No nausea, vomiting, or diarrhea. Genitourinary: No dysuria or flank pain. Neurologic: The patient is very weak. She is a somewhat lethargic. [employer] history: She is a 2, para 1, AB1. She delivered her child by . She has had a hysterectomy. PREVIOUS HOSPITALIZATIONS AND OPERATIONS: She has had labor and delivery, a , a hysterectomy, femoral popliteal bypass graft, appendectomy, cholecystectomy. MEDICAL DISEASES: Positive for diabetes mellitus, hypertension, COPD, obesity, peripheral artery disease, obstructive sleep apnea, hypertension and hyperlipidemia. SOCIAL HISTORY: [place] She lives alone. She is . She stopped smoking cigarettes about 4 years ago. She does not drink alcoholic beverages or abuse drugs. ALLERGIES: She has multiple drug allergies including penicillin, codeine, Levaquin and doxycycline. HOME MEDICATIONS: Include Senokot, prednisone, Pravachol, Singulair, hydrocodone, Lasix, Breo inhalers, Nexium, vitamins, Zyrtec, azithromycin, alprazolam and albuterol. [place] She stopped smoking cigarettes 4 years ago. She does drink alcoholic beverages or abuse drugs. She is . She does not have any pets at home. PHYSICAL EXAMINATION: Vital signs: Temperature is 98.1 degrees, pulse 106, respirations 18, blood pressure 116/73. Generally: This is a lethargic, obese middle-aged female who is in no acute distress. Head/eyes/ears/nose/throat: She can hear my spoken words and see near objects. No drainage noted from the nose or ears. Neck: No meningismus. Lungs: Clear to auscultation. Cardiovascular: Heart rate is regular. Diminished peripheral pulses. There is bilateral leg edema. Abdomen: Soft and nontender. Neurologic: Patient is lethargic. She can move her arms or legs but she is very weak. There is no tremor. Integument: No rash noted. Thank you for the consult.
[2016-11-07] MEDS: DUONEB (A & A) INH SCH ×6 (03:51→23:05)
[2016-11-07] MEDS: SOLU-MEDROL IV SCH (04:00)
[2016-11-07] MEDS: HUMULIN R SUBQ SCH ×5 (06:21→22:52)
[2016-11-07 07:07] LABS: BASO% 1.1 % (0.0-0.8); HEMATOCRIT 33.2 % (37.0-47.0); HEMOGLOBIN 9.8 g/dL (12.0-16.0); IMM GRAN# 0.86 X1000 (0.0-0.04); IMM GRAN% 8.8 % (0.0-0.5); LYMPH# 1.02 X1000 (1.2-3.4); LYMPH% 10.4 % (20.5-51.1); MANUAL DIFF NEEDED? YES; MCH 25.9 PG (27-31); MCHC 29.5 g/dL (33-37); MCV 87.8 FL (81-99); MONO# 0.46 X1000 (0.11-0.59); MONO% 4.7 % (1.7-9.3); MPV 11.3 FL (7.4-10.4); PLT 142 X1000 (130-400); RBC 3.78 XMIL (4.2-5.4)
[2016-11-07 07:25] LABS: BANDS 12 % (0-1); EOS 2 % (1-10); LYMPHS 6 % (21-51); NRBC 2 % (0-0)
[2016-11-07 07:30] LABS: AGAP 12; ALBUMIN 3.1 g/dL (3.5-5.0); BUN 29 mg/dL (8-22); CALCIUM 8.7 mg/dL (8.8-10.2); CHLORIDE 104 mmol/L (98-107); COSMO 307; POTASSIUM 3.8 mmol/L (3.5-5.1); SODIUM 146 mmol/L (136-145); TCO2 30 mmol/L (25-35)
[2016-11-07] MEDS: BREO ELLIPTA 100/25 MCG INH INH SCH (07:32)
[2016-11-07] MEDS: XANAX PO SCH ×2 (08:04→22:54)
[2016-11-07] MEDS: HEPARIN SUBQ SCH ×2 (08:04→22:52)
[2016-11-07] MEDS: NEXIUM PO SCH (08:04)
[2016-11-07] MEDS: CARDIZEM CD PO SCH (08:04)
[2016-11-07] MEDS: LANTUS SUBQ SCH ×2 (08:05→22:53)
[2016-11-07] MEDS: MERREM 500 MG in NS 50 ML IV SCH ×2 (08:05→22:52)
[2016-11-07] MEDS: LASIX IV SCH (13:46)
[2016-11-07] MEDS: ANUSOL-HC CREAM PR SCH ×2 (13:48→22:15)
[2016-11-07] MEDS ORDERED: POTASSIUM PHOSPHATE 30 MMOL in NS 250 ML IV ONE (13:55)
--- NOTE | 2016-11-07 14:15 | PROGRESS NOTE ---
DATE: 11/07/2016 PRESENT ILLNESS: The patient is being treated for pneumonia. She has a klebsiella urinary tract infection, which I think is asymptomatic and does not need treatment, but by virtue of her being on treatment for pneumonia, the urinary tract infection is also being treated. MEDICATIONS: The patient is on a combination of vancomycin and Zosyn. PHYSICAL EXAMINATION: Vital signs: Temperature is 100, pulse 110, respirations 18, blood pressure 150/60. General: This is an ill-appearing middle-aged female. She is in no acute distress. Cardiovascular: Heart tones were very distant. It sounded like that her heart rate was regular, but I cannot be sure of that. Lungs: Clear to auscultation. Abdomen: Soft and nontender. LABORATORY AND X-RAY: The patient's CBC for today showed a white count of 9770, hemoglobin 9.8, and platelet count 142,000. Creatinine is 0.9. GFR is greater than 60. There is no new radiographic study today. ASSESSMENT AND PLAN: Patient has pneumonia, and that is the main thing that I am treating her for. As mentioned above, by virtue of treating her pneumonia, her klebsiella urinary tract infection, which I think is asymptomatic, is being treated as well. Patient's comorbidities include diabetes mellitus, chronic obstructive pulmonary disease, obstructive sleep apnea, and obesity. The patient's immunoglobulin levels are still pending.
[2016-11-07] MEDS: VANCOMYCIN 1,300 MG in NS 250 ML IV SCH (16:40)
--- NOTE | 2016-11-07 20:42 | PROGRESS NOTE ---
DATE: 11/07/2016 SUBJECTIVE: The patient feels okay. The patient states that she wants to try and use the bedside commode. OBJECTIVE: Vital Signs: Temperature 98 degrees, blood pressure 147/64, heart rate 100, respirations 18, O2 saturation 97% on 5L nasal cannula. General: This is a morbidly obese female lying in bed in no acute distress. HEENT: Head normocephalic, atraumatic. Heart: S1 and S2 normal. Tachycardic. Lungs: Clear to auscultation bilaterally. No crackles. No rales. No wheezing. Abdomen: Positive bowel sounds. Soft, obese, nontender, nondistended. Extremities: Edema 3+. Neurologic: The patient is alert oriented x3. LABORATORIES: White blood cell count 9.7, hemoglobin 9.8, hematocrit 32, platelets 142,000. Sodium 146, potassium 3.8, chloride 104, CO2 of 30, BUN 29, creatinine 0.9, glucose 287, phosphorus 1.9. ASSESSMENT AND PLAN: 1. Acute on chronic hypercapnic respiratory failure secondary to pneumonia and chronic obstructive pulmonary disease. Continue on the current IV antibiotic regimen as directed by Dr. Bro. Will decrease the patient's IV steroids. Continue on bronchodilator therapy. 2. Pneumonia. Continue on IV antibiotics. 3. Morbid obesity. Aware. 4. Uncontrolled insulin-dependent diabetes mellitus. I will decrease the patient's IV steroids and continue on Lantus twice a day. 5. Hypophosphatemia. Will replace the patient's phosphorus. 6. Anxiety disorder. Continue on Xanax. 7. Vitamin D deficiency. Continue on vitamin D replacement. 8. Dyslipidemia. Continue on Pravachol. 9. Deep vein thrombosis prophylaxis. Continue on heparin. 10. Continue with physical therapy. [facility]
[2016-11-07] MEDS ORDERED: NORCO-5 PO PRN (21:03)
[2016-11-07] MEDS: PRAVACHOL PO SCH (22:53)
[2016-11-07] MEDS: SENOKOT PO SCH (22:54)
[2016-11-07] MEDS: NORCO-5 PO PRN (22:54)
[2016-11-08] MEDS: DUONEB (A & A) INH SCH ×6 (03:55→23:27)
[2016-11-08] MEDS: VANCOMYCIN 1,300 MG in NS 250 ML IV SCH (05:23)
[2016-11-08] MEDS: HUMULIN R SUBQ SCH ×4 (06:29→21:28)
[2016-11-08] MEDS ORDERED: INSULIN PEN NEEDLES ONE (06:33)
[2016-11-08 07:24] LABS: BASO% 1.2 % (0.0-0.8); HEMATOCRIT 34.1 % (37.0-47.0); IMM GRAN# 1.06 X1000 (0.0-0.04); IMM GRAN% 8.8 % (0.0-0.5); LYMPH# 0.98 X1000 (1.2-3.4); LYMPH% 8.2 % (20.5-51.1); MANUAL DIFF NEEDED? YES; MCH 25.9 PG (27-31); MCHC 29.3 g/dL (33-37); MCV 88.3 FL (81-99); MONO# 0.77 X1000 (0.11-0.59); MONO% 6.4 % (1.7-9.3); MPV 11.3 FL (7.4-10.4); NEUT% 75.4 % (42.2-75.2); PLT 154 X1000 (130-400); RBC 3.86 XMIL (4.2-5.4)
[2016-11-08 07:37] LABS: AGAP 8; ALBUMIN 3.2 g/dL (3.5-5.0); BUN 28 mg/dL (8-22); CALCIUM 8.2 mg/dL (8.8-10.2); CHLORIDE 102 mmol/L (98-107); COSMO 296; POTASSIUM 3.7 mmol/L (3.5-5.1); SODIUM 144 mmol/L (136-145); TCO2 34 mmol/L (25-35)
[2016-11-08 07:58] LABS: BANDS 6 % (0-1); LYMPHS 8 % (21-51); MONO 4 % (1-9); NRBC 2 % (0-0)
[2016-11-08] MEDS: BREO ELLIPTA 100/25 MCG INH INH SCH (08:36)
[2016-11-08] MEDS: CARDIZEM CD PO SCH (10:34)
[2016-11-08] MEDS: XANAX PO SCH ×2 (10:34→21:27)
[2016-11-08] MEDS: MERREM 500 MG in NS 50 ML IV SCH ×2 (10:34→21:27)
[2016-11-08] MEDS: HEPARIN SUBQ SCH ×2 (10:34→21:27)
[2016-11-08] MEDS: NEXIUM PO SCH (10:34)
[2016-11-08] MEDS: LASIX IV SCH ×2 (10:34→21:27)
[2016-11-08] MEDS: SOLU-MEDROL IV SCH ×2 (10:35→21:27)
[2016-11-08] MEDS: LANTUS SUBQ SCH ×2 (10:35→21:28)
--- NOTE | 2016-11-08 12:54 | PALLIATIVE CARE CONSULTATION ---
DATE: 11/08/2016 REQUESTING PHYSICIAN: Dr. Ava Brandt. REASON FOR CONSULTATION: Goals of care. HISTORY OF PRESENT ILLNESS: This is a 61-year-old female with a past medical history of COPD requiring home O2, peripheral artery disease, obstructive sleep apnea, obesity, hypertension, and hyperlipidemia. She was most recently admitted on 11/02/2016, after becoming very weak. Her family states that she was extremely altered and minimally responsive. The patient's son and sister are at the bedside and state that she has had numerous admissions since July of last year. In between those admissions, she had gone to local rehabilitation facilities; however, she continues to get weaker. The family states within the last 6 months they have noticed a significant functional decline to where she is not able to perform her activities of daily living. She gets extremely short of breath with minimal exertion. Currently, Ms. Mendoza is lying in the bed. She is able to answer questions appropriately. She denies shortness of breath, even though she appears short of breath with conversation. She denies pain. The Palliative Care team has been consulted to assist with goals of care. REVIEW OF SYSTEMS: A 12-point review of systems has been conducted and is otherwise negative except those mentioned in the HPI. PAST MEDICAL HISTORY: See HPI. PAST SURGICAL HISTORY: 1. Femoropopliteal bypass. 2. Appendectomy. 3. Cholecystectomy. 4. Hysterectomy. 5. section. SOCIAL HISTORY: Prior to this admission, she was a resident at [facility]. She is a past smoker. Alcohol and drug use have been denied. FAMILY HISTORY: None pertinent. PHYSICAL EXAMINATION: General: This is a 61-year-old, chronically ill-appearing, female who looks much older than her stated age. She is lying in the hospital bed. She does not appear to be in any acute distress. HEENT: Atraumatic, normocephalic. Neck: Supple. Cardiovascular: Normal S1 and S2. Pulmonary: Lung sounds are diminished. Respirations appear labored with conversation. Abdomen: Soft. Bowel sounds are active. Extremities: Edema noted to bilateral lower extremities. Pulses are palpable. Skin: Warm and dry. Neurologic: She is alert and oriented x3. IMPRESSION: This is a 61-year-old, chronically ill-appearing, female with a past medical history as listed above in the HPI. I met with the patient, her son Caitlin Mendoza, and her sister to discuss goals of care. They state that the plan is to discharge to long-term care for long-term care placement. They state and the patient states that they understand that Ms Mendoza can no longer care for herself at home. In regards to advance directive and power of research attorney, Ms. Mendoza does not have either of those documents but is interested in further discussing that. A copy of an advance directive and power of research attorney will be given to the patient and family. Currently, Ms. Mendoza is a full code. It appears that her palliative performance scale is 40%. As previously mentioned, she does not have any acute complaints. The Palliative Care team will continue to follow as needed. Thank you for this consultation. Dictated by NELLY Soares for Chito Sánchez MD
--- NOTE | 2016-11-08 13:04 | PROGRESS NOTE ---
DATE: 11/08/2016 SUBJECTIVE: The patient states that she feels okay. She does complain of generalized aches and pains. She has not had a bowel movement yet. Her last bowel movement was on Sunday. OBJECTIVE: Vital Signs: Temperature 98.2 degrees, blood pressure 138/68, heart rate 85, respirations 17, O2 saturation 98% on 4L nasal cannula. General: This is a morbidly obese female, lying in bed in no acute distress. HEENT: Head normocephalic, atraumatic. Heart: S1 and S2 normal. Regular rate and rhythm. Lungs: Clear to auscultation bilaterally. No wheezes, no rales. No rhonchi. Abdomen: Positive bowel sounds. Soft, obese, nontender, nondistended. Extremities: Edema 3+ in the upper and lower extremities. Neurologic: The patient is alert and oriented x3. LABORATORIES: White blood cell count 11, hemoglobin 10, hematocrit 34, platelets 154,000. Sodium 144, potassium 3.7, chloride 102, CO2 of 34, BUN 28, creatinine 0.7, glucose 166, calcium 8.2, phosphorus 3.1, magnesium 2, albumin 3.2. ASSESSMENT AND PLAN: 1. Acute on chronic hypercapnic respiratory failure secondary to pneumonia and chronic obstructive pulmonary disease. Continue on IV antibiotics, bronchodilator therapy, and steroid therapy. 2. Pneumonia. Continue on the current IV antibiotic therapy. 3. Volume overload. We will start the patient on scheduled Lasix. 4. Morbid obesity. Aware. 5. Uncontrolled insulin-dependent diabetes mellitus, type 2. Continue on Lantus twice a day. 6. Anxiety disorder. Continue on Xanax. 7. Dyslipidemia. Continue on Pravachol. 8. Deep vein thrombosis prophylaxis. Continue on heparin. 9. Continue with physical therapy. 10. Disposition. The patient will be [facility] once she is medically stable.
--- NOTE | 2016-11-08 14:42 | PROGRESS NOTE ---
DATE: 11/08/2016 PRESENT ILLNESS: The patient currently is being treated for pneumonia. She also has a Klebsiella urinary tract infection which appears to be asymptomatic. MEDICATIONS: The patient is receiving vancomycin and meropenem. PHYSICAL EXAMINATION: Vital Signs: Temperature is 98.2 degrees, pulse 85, respirations 17, blood pressure 138/68. General: This is an ill-appearing, middle-aged female. She seems to be dyspneic, even at rest. Lungs: Scattered rhonchi bilaterally. Cardiovascular: Regular heart rate. Abdomen: Soft and not tender. Legs: There is bilateral edema. LABORATORY AND X-RAY: There is no new x-ray. The CBC for today has a white count of 11,980, hemoglobin 10 and platelet count 154,000. Creatinine is 0.7. GFR is greater than 60. ASSESSMENT AND PLAN: The patient definitely has pneumonia. She also has a Klebsiella urinary tract infection. The patient's white count is increasing. It is noted that the patient is on steroids, which could be responsible for some elevation in the white blood cell count. Possibly the patient has an organism that is not covered with the current antimicrobial regimen. I am adding Septra to the patient's antibiotic regimen in case the patient has developed a superinfection with Stenotrophomonas. We have not grown that organism from the patient. Adding the Septra is just an empiric addition. COMORBIDITIES: The patient's comorbidities include diabetes mellitus, chronic obstructive pulmonary disease, obstructive sleep apnea, and obesity.
[2016-11-08] MEDS: ALBUMIN 25% IV SCH (15:38)
[2016-11-08] MEDS: ANUSOL-HC CREAM PR SCH ×2 (17:06→21:35)
[2016-11-08] MEDS: SENOKOT PO SCH (21:26)
[2016-11-08] MEDS: PRAVACHOL PO SCH (21:26)
[2016-11-08] MEDS: SEPTRA DS PO SCH ×2 (21:27)
[2016-11-09] MEDS: DUONEB (A & A) INH SCH ×6 (03:45→23:15)
[2016-11-09] MEDS: ULTRAM PO PRN ×2 (06:08→20:01)
[2016-11-09] MEDS: HUMULIN R SUBQ SCH ×4 (06:08→21:54)
[2016-11-09 07:21] LABS: BASO% 0.3 % (0.0-0.8); HEMATOCRIT 30.7 % (37.0-47.0); IMM GRAN# 0.43 X1000 (0.0-0.04); IMM GRAN% 4.2 % (0.0-0.5); LYMPH# 0.51 X1000 (1.2-3.4); MANUAL DIFF NEEDED? YES; MCH 26.2 PG (27-31); MCHC 29.3 g/dL (33-37); MCV 89.5 FL (81-99); MONO# 0.36 X1000 (0.11-0.59); MONO% 3.5 % (1.7-9.3); MPV 10.4 FL (7.4-10.4); PLT 135 X1000 (130-400); RBC 3.43 XMIL (4.2-5.4)
[2016-11-09 07:38] LABS: AGAP 11; ALBUMIN 4.1 g/dL (3.5-5.0); BUN 23 mg/dL (8-22); CALCIUM 8.7 mg/dL (8.8-10.2); CHLORIDE 97 mmol/L (98-107); COSMO 302; POTASSIUM 3.8 mmol/L (3.5-5.1); SODIUM 148 mmol/L (136-145); TCO2 40 mmol/L (25-35)
[2016-11-09 07:46] LABS: BANDS 2 % (0-1); LYMPHS 8 % (21-51); NRBC 2 % (0-0)
--- NOTE | 2016-11-09 10:21 | Diag Imaging Result Document ---
PROCEDURE NAME: CHEST-1 VIEW - 11/09/2016 PORTABLE CHEST: COMPARISON: 11/02/2016. FINDINGS: A right-sided PICC line has been placed since the prior exam. The tip overlies the distal superior vena cava. There are increased interstitial markings in the upper mid right lung. These are slightly more pronounced in the mid right lung. The heart is not enlarged. The vessels are not distended. No pleural effusion is identified. IMPRESSION: 1. Right-sided PICC line in good position. 2. Worsening infiltrates in the mid right lung.
[2016-11-09] MEDS: BREO ELLIPTA 100/25 MCG INH INH SCH (10:28)
[2016-11-09] MEDS: HEPARIN SUBQ SCH ×2 (11:05→20:05)
[2016-11-09] MEDS: LASIX IV SCH ×2 (11:05→21:53)
[2016-11-09] MEDS: NEXIUM PO SCH (11:06)
[2016-11-09] MEDS: SEPTRA DS PO SCH ×2 (11:07→20:04)
[2016-11-09] MEDS: VITAMIN D PO SCH (11:07)
[2016-11-09] MEDS: CARDIZEM CD PO SCH (11:08)
[2016-11-09] MEDS: PREDNISONE PO SCH (11:08)
[2016-11-09] MEDS: LANTUS SUBQ SCH ×2 (11:09→21:54)
[2016-11-09] MEDS: MERREM 500 MG in NS 50 ML IV SCH ×2 (11:10→20:06)
[2016-11-09] MEDS: XANAX PO SCH ×2 (11:16→21:53)
[2016-11-09] MEDS: ALBUMIN 25% IV SCH (11:35)
--- NOTE | 2016-11-09 15:27 | PROGRESS NOTE ---
DATE: 11/09/2016 PRESENT ILLNESS: The patient is being treated for pneumonia. She also has a Klebsiella urinary tract infection which is asymptomatic. MEDICATIONS: Patient is on vancomycin and meropenem. PHYSICAL EXAMINATION: Vital Signs: Temperature is 98.8 degrees, pulse 87, respirations 20, blood pressure 141/65. Generally: This is an ill-appearing, edematous middle-aged female. She is in no acute distress. Lungs: Clear to auscultation. Cardiovascular: Regular heart rate. Diminished peripheral pulses. Abdomen: Soft and nontender. Extremities: The patient has bibasilar bilateral leg edema. LABORATORY AND X-RAY: [place] [address], hemoglobin 9 and platelet count 135,000. Creatinine 0.7. Chest x-ray shows worse right lung infiltrate. ASSESSMENT AND PLAN: Patient has pneumonia. The patient's Klebsiella urinary tract infection may be asymptomatic. Patient's white count is increasing. Yesterday Septra was added. For now, I will continue with the current antimicrobial regimen. COMORBIDITIES: The patient's comorbidities include diabetes mellitus, COPD, obstructive sleep apnea, and obesity. [facility]
[2016-11-09] MEDS: ANUSOL-HC CREAM PR SCH ×2 (15:33→21:55)
[2016-11-09] MEDS: VANCOMYCIN 1,300 MG in NS 250 ML IV SCH (15:39)
--- NOTE | 2016-11-09 18:40 | PROGRESS NOTE ---
DATE: 11/09/2016 SUBJECTIVE: The patient states that she feels a lot better. Her edema is improving. OBJECTIVE: Vital Signs: Temperature 98.2, blood pressure 138/58, heart rate 101, respirations 20, O2 saturations 97% on 3 L nasal cannula. General: This is a morbidly obese female, lying in bed, in no acute distress. Head: Normocephalic, atraumatic. Heart: S1, S2 normal. Regular rate and rhythm. Lungs: Clear to auscultation bilaterally. No crackles. No rales. Abdomen: Positive bowel sounds. Soft, obese, nontender, nondistended. Extremities: 3+ edema. No calf tenderness. Neurologic: The patient is alert and oriented x3. LABS: White blood cell count 10, hemoglobin 9, hematocrit 30, platelets 135. Sodium 148. Potassium 3.8, chloride 97, CO2 of 40, BUN 23, creatinine 0.7, glucose 179. ASSESSMENT AND PLAN: 1. Acute on chronic hypercapnic respiratory failure secondary to pneumonia and chronic obstructive pulmonary disease. Continue on antibiotics, bronchodilator therapy and prednisone. 2. Pneumonia. Continue on IV antibiotic therapy. 3. Volume overload. Continue on scheduled Lasix plus albumin. 4. Morbid obesity. Aware. 5. Insulin-dependent diabetes mellitus type 2. Continue on Lantus twice a day. 6. Anxiety disorder. Continue on Xanax. 7. Dyslipidemia. Continue on Pravachol. 8. Deep vein thrombosis prophylaxis. Continue on heparin. 9. Continue with physical therapy.
[2016-11-09] MEDS: SENOKOT PO SCH (20:01)
[2016-11-09] MEDS: PRAVACHOL PO SCH (20:04)
[2016-11-10] MEDS: DUONEB (A & A) INH SCH ×6 (03:10→23:13)
[2016-11-10] MEDS: HUMULIN R SUBQ SCH ×4 (06:46→23:22)
[2016-11-10] MEDS: BREO ELLIPTA 100/25 MCG INH INH SCH ×2 (07:12→13:03)
[2016-11-10 07:17] LABS: BASO% 0.3 % (0.0-0.8); HEMATOCRIT 29.6 % (37.0-47.0); HEMOGLOBIN 8.7 g/dL (12.0-16.0); IMM GRAN# 0.42 X1000 (0.0-0.04); IMM GRAN% 3.4 % (0.0-0.5); LYMPH# 0.67 X1000 (1.2-3.4); LYMPH% 5.4 % (20.5-51.1); MANUAL DIFF NEEDED? YES; MCH 26.2 PG (27-31); MCHC 29.4 g/dL (33-37); MCV 89.2 FL (81-99); MONO# 0.65 X1000 (0.11-0.59); MONO% 5.2 % (1.7-9.3); MPV 10.4 FL (7.4-10.4); NEUT% 85.7 % (42.2-75.2); PLT 137 X1000 (130-400); RBC 3.32 XMIL (4.2-5.4)
[2016-11-10 07:38] LABS: AGAP 9; ALBUMIN 4.4 g/dL (3.5-5.0); BUN 25 mg/dL (8-22); CALCIUM 9.1 mg/dL (8.8-10.2); CHLORIDE 96 mmol/L (98-107); COSMO 292; POTASSIUM 3.6 mmol/L (3.5-5.1); SODIUM 146 mmol/L (136-145); TCO2 41 mmol/L (25-35)
[2016-11-10 07:52] LABS: BANDS 2 % (0-1); LYMPHS 3 % (21-51); MONO 7 % (1-9); NRBC 2 % (0-0)
[2016-11-10 07:53] LABS: HYPOCHROM OCCASIONAL
[2016-11-10] MEDS: PREDNISONE PO SCH (08:09)
[2016-11-10] MEDS: MERREM 500 MG in NS 50 ML IV SCH ×2 (08:09→20:18)
[2016-11-10] MEDS: ALBUMIN 25% IV SCH (08:09)
[2016-11-10] MEDS: NEXIUM PO SCH (08:09)
[2016-11-10] MEDS: HEPARIN SUBQ SCH ×2 (08:10→20:17)
[2016-11-10] MEDS: LASIX IV SCH ×3 (08:10→23:24)
[2016-11-10] MEDS: LANTUS SUBQ SCH ×2 (08:10→23:21)
[2016-11-10] MEDS: XANAX PO SCH ×2 (08:10→23:23)
[2016-11-10] MEDS: SEPTRA DS PO SCH ×2 (08:10→20:18)
[2016-11-10] MEDS: NORCO-5 PO PRN ×2 (08:10→20:32)
[2016-11-10] MEDS: CARDIZEM CD PO SCH (08:10)
[2016-11-10] MEDS: ANUSOL-HC CREAM PR SCH ×2 (08:11→20:25)
--- NOTE | 2016-11-10 13:37 | PROGRESS NOTE ---
DATE: 11/10/2016 SUBJECTIVE: The patient is sitting up in the chair. She states that she feels a lot better. Her edema is better in her arms. OBJECTIVE: Vital Signs: Temperature 97.8 degrees, blood pressure 128/53, heart rate 88, respirations 16, O2 saturations 93% on 3 L nasal cannula. General: This is a morbidly obese female, sitting in a chair in no acute distress. Head: Normocephalic atraumatic. Heart: S1, S2. Normal. Regular rate and rhythm. Lungs: Clear to auscultation bilaterally. No wheezes, no rales. No rhonchi. Abdomen: Positive bowel sounds. Soft, nontender, nondistended. Extremities: No edema. No cyanosis. No calf tenderness. Extremities: 3+ edema in the lower extremities. Neurologic: The patient is alert and oriented x3. LABS: White blood cell count 12, hemoglobin 8.7, hematocrit 29, platelets 137,000. Sodium 146, potassium 3.6, chloride 96, CO2 41, BUN 25, creatinine 0.7, glucose 110 ,phosphorus 1.8. ASSESSMENT AND PLAN: 1. Acute on chronic hypercapnic respiratory failure secondary to pneumonia and COPD. Continue on antibiotic therapy, bronchodilator therapy and prednisone. 2. Volume overload. Continue on IV Lasix. 3. Pneumonia. Continue on the current IV antibiotic regimen as directed by Dr. Bro. 4. Morbid obesity. Aware. 5. Insulin-dependent diabetes mellitus type 2. We will decrease the patient's Lantus dosage since her blood sugar was 46 this morning. 6. Anxiety disorder. Continue on Xanax. 7. Dyslipidemia. Continue on Pravachol. 8. Deep vein thrombosis prophylaxis. Continue on heparin. 9. Continue with physical therapy.
[2016-11-10] MEDS ORDERED: INSULIN PEN NEEDLES ONE (15:37)
[2016-11-10] MEDS ORDERED: ROBITUSSIN PO PRN (18:16)
[2016-11-10] MEDS: SENOKOT PO SCH (20:24)
[2016-11-10] MEDS: PRAVACHOL PO SCH (20:24)
[2016-11-10] MEDS: MIRALAX PO SCH (20:24)
--- NOTE | 2016-11-10 20:29 | PROGRESS NOTE ---
DATE: 11/10/2016 PRESENT ILLNESS: The patient is being treated for pneumonia. She also has a Klebsiella urinary tract infection. MEDICATIONS: This is day 7 of treatment for use of both meropenem and vancomycin and day 2 of use of Septra. PHYSICAL EXAMINATION: Vital Signs: Temperature is 97.8 degrees, pulse is 90, respirations 16, blood pressure 128/53. Generally: This is an ill-appearing, middle-aged female who is in no acute distress. Lungs: Clear to auscultation. Cardiovascular: Regular heart rate. Abdomen: Soft and nontender. Legs: Bilateral edema. LAB AND X-RAY: Chest x-ray shows worsening of the right-sided infiltrate. CBC shows a white count of 12,520, hemoglobin 8.7 and platelet count 137,000. Creatinine 0.7. GFR is greater than 60. Chest x-ray looks worse on the right side. ASSESSMENT AND PLAN: The patient has pneumonia which is being treated with meropenem and vancomycin. Also Septra is being used. The plan will be to continue the current antimicrobial agents. COMORBIDITIES: Include diabetes mellitus, COPD, obstructive sleep apnea and obesity.
[2016-11-11] MEDS: DUONEB (A & A) INH SCH ×6 (03:23→23:42)
[2016-11-11] MEDS: VANCOMYCIN 1,300 MG in NS 250 ML IV SCH (03:30)
[2016-11-11] MEDS: HUMULIN R SUBQ SCH ×4 (06:10→22:53)
[2016-11-11] MEDS: NORCO-5 PO PRN ×3 (06:50→23:01)
[2016-11-11 07:02] LABS: BASO% 0.3 % (0.0-0.8); HEMATOCRIT 30.1 % (37.0-47.0); HEMOGLOBIN 8.8 g/dL (12.0-16.0); IMM GRAN# 0.38 X1000 (0.0-0.04); IMM GRAN% 2.9 % (0.0-0.5); LYMPH# 0.54 X1000 (1.2-3.4); LYMPH% 4.2 % (20.5-51.1); MANUAL DIFF NEEDED? YES; MCH 26.3 PG (27-31); MCHC 29.2 g/dL (33-37); MCV 89.9 FL (81-99); MONO# 0.52 X1000 (0.11-0.59); MPV 10.6 FL (7.4-10.4); NEUT% 88.6 % (42.2-75.2); PLT 151 X1000 (130-400); RBC 3.35 XMIL (4.2-5.4)
[2016-11-11 07:12] LABS: AGAP 12; BUN 27 mg/dL (8-22); CALCIUM 10.4 mg/dL (8.8-10.2); CHLORIDE 97 mmol/L (98-107); COSMO 303; POTASSIUM 3.8 mmol/L (3.5-5.1); SODIUM 150 mmol/L (136-145); TCO2 41 mmol/L (25-35)
[2016-11-11 07:25] LABS: BANDS 6 % (0-1); HYPOCHROM 1+; LYMPHS 6 % (21-51); MONO 4 % (1-9)
[2016-11-11] MEDS: D5W 1,000 ML IV SCH (08:10)
[2016-11-11] MEDS: NEXIUM PO SCH (08:18)
[2016-11-11] MEDS: CARDIZEM CD PO SCH (08:18)
[2016-11-11] MEDS: XANAX PO SCH ×2 (08:19→23:00)
[2016-11-11] MEDS: MERREM 500 MG in NS 50 ML IV SCH ×3 (08:19→22:58)
[2016-11-11] MEDS: SEPTRA DS PO SCH ×3 (08:20→23:00)
[2016-11-11] MEDS: MIRALAX PO SCH ×3 (08:20→22:58)
[2016-11-11] MEDS: PREDNISONE PO SCH (08:20)
[2016-11-11] MEDS: HEPARIN SUBQ SCH ×3 (08:20→22:51)
[2016-11-11] MEDS: NEUTRA-PHOS PO SCH ×5 (08:21→22:58)
[2016-11-11] MEDS: DULCOLAX PR SCH (08:21)
[2016-11-11] MEDS: ANUSOL-HC CREAM PR SCH ×2 (08:21→22:51)
[2016-11-11] MEDS: LANTUS SUBQ SCH ×4 (08:29→22:56)
[2016-11-11] MEDS: BREO ELLIPTA 100/25 MCG INH INH SCH (08:40)
--- NOTE | 2016-11-11 09:39 | Diag Imaging Result Document ---
PROCEDURE NAME: CHEST-PORTABLE - 11/11/2016 PORTABLE CHEST X-RAY: COMPARISON: 11/09/2016. FINDINGS: Stable right PICC line. There is improvement in the ill-defined right upper lobe infiltrate. No new infiltrates. Stable pulmonary vascular congestion and nonspecific bibasilar infiltrates. IMPRESSION: Improvement in the right upper lobe infiltrate.
--- NOTE | 2016-11-11 10:20 | Diag Imaging Result Document ---
PROCEDURE NAME: ABDOMEN FLAT/UPRIGHT - 11/11/2016 X-RAY ABDOMEN, TWO VIEWS: COMPARISON: 10/13/2016. FINDINGS: There is a stent over the left side of the pelvis. There is abnormal sclerosis throughout the left femoral head. This has been present on previous exams, including 04/18/2014. 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 There is now some slight collapse here. There is an unusual air collection in the epigastrium and under the right hemidiaphragm. IMPRESSION: Abnormal air collection in the upper abdomen. Although nonspecific, free air cannot be excluded. Recommend a left side down decubitus abdomen x-ray or an abdomen CT.
[2016-11-11] MEDS: LACTULOSE PO SCH ×3 (12:29→22:57)
--- NOTE | 2016-11-11 13:10 | PROGRESS NOTE ---
DATE: 11/11/2016 SUBJECTIVE: The patient is resting comfortably in bed. She has no complaints at this time. She has not had a bowel movement in what appears to be 4 days. OBJECTIVE: Vital Signs: Temperature 98.6 degrees, blood pressure 140/58, heart rate 95, respirations 19, O2 saturations 97% on 3 L nasal cannula. General: This is a morbidly obese female, lying in bed, in no acute distress. Head: Normocephalic, atraumatic. Heart: S1, S2. Normal. Tachycardic. Lungs: Clear to auscultation bilaterally. No crackles. No rales. Abdomen: Positive bowel sounds. Soft, nontender, nondistended. Extremities: 2+ edema. No cyanosis. No calf tenderness. Neurologic: The patient is alert and oriented x3. LABORATORY DATA: White blood cell count 12, hemoglobin 8.8, hematocrit 30, platelets 151,000. Sodium 150. Potassium 3.8, chloride 97, CO2 41. BUN 27, creatinine 0.7, glucose 93. Calcium 10.4, phosphorus 2.2. ASSESSMENT AND PLAN: 1. Acute on chronic hypercapnic respiratory failure secondary to pneumonia and chronic obstructive pulmonary disease. Slowly improving. Continue on antibiotic and bronchodilator therapy. 2. Volume overload. Improved. We will hold the Lasix today. 3. Hypernatremia. We will start the patient on D5 W and repeat the sodium level later on today. 4. Pneumonia. Continue on IV antibiotic therapy. 5. Morbid obesity. Aware. 6. Insulin-dependent diabetes mellitus type 2. Continue on Lantus. 7. Anxiety disorder. Continue on Xanax. 8. Dyslipidemia. Continue on Pravachol. 9. Deep vein thrombosis prophylaxis. Continue on heparin. 10. Continue with physical therapy.
[2016-11-11] MEDS: SENOKOT PO SCH ×2 (19:24→23:00)
[2016-11-11] MEDS: PRAVACHOL PO SCH ×2 (19:25→22:59)
[2016-11-12] MEDS: ZOFRAN IV PRN ×3 (02:11→16:41)
[2016-11-12] MEDS: D5W 1,000 ML IV SCH (03:18)
[2016-11-12] MEDS: DUONEB (A & A) INH SCH ×6 (04:00→22:55)
[2016-11-12] MEDS: HUMULIN R SUBQ SCH ×4 (06:52→21:38)
[2016-11-12 07:12] LABS: BASO% 0.1 % (0.0-0.8); EOS# 0.01 X1000 (0.0-0.7); EOS% 0.1 % (0.0-10.0); HEMATOCRIT 31.1 % (37.0-47.0); HEMOGLOBIN 9.1 g/dL (12.0-16.0); IMM GRAN# 0.37 X1000 (0.0-0.04); IMM GRAN% 2.6 % (0.0-0.5); LYMPH# 0.61 X1000 (1.2-3.4); LYMPH% 4.2 % (20.5-51.1); MANUAL DIFF NEEDED? YES; MCH 26.3 PG (27-31); MCHC 29.3 g/dL (33-37); MCV 89.9 FL (81-99); MONO# 0.64 X1000 (0.11-0.59); MONO% 4.4 % (1.7-9.3); MPV 10.5 FL (7.4-10.4); NEUT% 88.6 % (42.2-75.2); PLT 160 X1000 (130-400); RBC 3.46 XMIL (4.2-5.4)
[2016-11-12 07:21] LABS: AGAP 7; BUN 18 mg/dL (8-22); CALCIUM 9.5 mg/dL (8.8-10.2); CHLORIDE 94 mmol/L (98-107); COSMO 282; SODIUM 141 mmol/L (136-145); TCO2 40 mmol/L (25-35)
[2016-11-12 07:53] LABS: POTASSIUM 5.8 mmol/L (3.5-5.1)
[2016-11-12 07:59] LABS: BANDS 4 % (0-1); LYMPHS 4 % (21-51); MONO 4 % (1-9); NRBC 1 % (0-0)
[2016-11-12] MEDS ORDERED: CALCIUM GLUCONATE 1 GM in NS 50 ML IV ONE ×2 (08:29→16:24)
[2016-11-12] MEDS ORDERED: SODIUM BICARBONATE 8.4% IV ONE ×2 (08:29→22:26)
[2016-11-12] MEDS ORDERED: ALBUTEROL 0.5% INH CONC FOR HYPERKALEMIA INH ONE ×3 (08:30→22:27)
[2016-11-12] MEDS: MIRALAX PO SCH ×2 (08:30→20:18)
[2016-11-12] MEDS: CARDIZEM CD PO SCH (08:30)
[2016-11-12] MEDS: NEXIUM PO SCH (08:30)
[2016-11-12] MEDS: SEPTRA DS PO SCH (08:30)
[2016-11-12] MEDS: LACTULOSE PO SCH ×2 (08:30→20:18)
[2016-11-12] MEDS ORDERED: KAYEXALATE PO ONE (08:30)
[2016-11-12] MEDS: MERREM 500 MG in NS 50 ML IV SCH ×2 (08:30→21:29)
[2016-11-12] MEDS: XANAX PO SCH ×2 (08:31→20:18)
[2016-11-12] MEDS: ANUSOL-HC CREAM PR SCH ×2 (08:31→21:37)
[2016-11-12] MEDS: DULCOLAX PR SCH (08:31)
[2016-11-12] MEDS: HEPARIN SUBQ SCH ×2 (08:31→21:30)
[2016-11-12] MEDS: LANTUS SUBQ SCH ×3 (08:32→21:38)
[2016-11-12] MEDS: NORCO-5 PO PRN ×2 (08:33→23:37)
[2016-11-12] MEDS: PREDNISONE PO SCH (08:35)
[2016-11-12] MEDS: BREO ELLIPTA 100/25 MCG INH INH SCH (08:42)
[2016-11-12 12:30] LABS: ALLEN TEST YES; BE 19.2 mmoll (-3.0-3.0); BLOOD TYPE ARTERIAL; DRAW SITE R RADIAL; METHB 1.5 % (0.0-1.5); O2(CT) 13.3 mL/dL (15.0-23.0); PO2(98.6) 83 mmHg (60-100); SAMPLE BLOOD; SAO2 98.6 % (95.0-100.0); THB 9.8 g/dL (11.5-17.4)
[2016-11-12 12:36] LABS: MODALITY CANNULA; PCO2(98.6) 76 mmHg (35-45)
[2016-11-12 14:15] LABS: ALLEN TEST YES; BE 18.7 mmoll (-3.0-3.0); BLOOD TYPE ARTERIAL; DRAW SITE R RADIAL; METHB 2.2 % (0.0-1.5); O2(CT) 12.5 mL/dL (15.0-23.0); PO2(98.6) 56 mmHg (60-100); SAMPLE BLOOD; SAO2 93.7 % (95.0-100.0); THB 9.9 g/dL (11.5-17.4); pH(98.6) 7.43 (7.35-7.45)
[2016-11-12 14:17] LABS: PCO2(98.6) 69 mmHg (35-45)
[2016-11-12 14:18] LABS: MODALITY BI PAP
[2016-11-12] MEDS ORDERED: PROVENTIL PO ONE (14:35)
[2016-11-12] MEDS ORDERED: SOLU-MEDROL IV ONE (14:37)
[2016-11-12] MEDS ORDERED: ALBUTEROL NEB INH ONE (15:00)
[2016-11-12] MEDS: LASIX IV SCH (15:09)
[2016-11-12] MEDS: PROTONIX IV SCH (15:10)
[2016-11-12] MEDS ORDERED: SODIUM BICARBONATE 8.4% IV PUSH ONE (16:26)
[2016-11-12] MEDS ORDERED: HUMULIN R IV ONE ×2 (16:28→22:27)
[2016-11-12] MEDS ORDERED: D50W SYRINGE IV ONE ×2 (16:28→22:26)
[2016-11-12] MEDS: VANCOMYCIN 1,300 MG in NS 250 ML IV SCH (16:41)
--- NOTE | 2016-11-12 17:00 | Diag Imaging Result Document ---
PROCEDURE NAME: ABDOMEN FLAT/UPRIGHT - 11/12/2016 ABDOMEN, 2 VIEWS: COMPARISON: 11/11/2016. FINDINGS: Stable hyperinflated stomach. No evidence of free air. Stable constipation and mild inflation of the colon although this is not abnormally dilated. No abnormally gas-distended small bowel loops. Stable ill-defined interstitial infiltrates in the lung bases. IMPRESSION: 1. Constipation. 2. Mild colonic ileus. 3. The stomach is somewhat distended with gas, nonspecific.
--- NOTE | 2016-11-12 17:47 | PROGRESS NOTE ---
DATE: 11/12/2016 SUBJECTIVE: The patient is resting comfortably in bed, however she is lethargic. An ABG was done this morning that revealed a pCO2 of 76. OBJECTIVE: Vital Signs: Temperature 97 degrees, blood pressure 133/76, heart rate 116, respirations 16, O2 saturations 95% on 4 L nasal cannula. General: This is a morbidly obese female lying in bed in no acute distress. Head: Normocephalic, atraumatic. Heart: S1, S2. Normal. Tachycardic. Lungs: Diminished breath sounds bilaterally. No crackles, no rales. Abdomen: Positive bowel sounds. Soft, nontender, nondistended. Extremities: 3+ edema. No cyanosis. No calf tenderness. Neurologic: The patient is lethargic. She will open her eyes but then falls asleep very quickly. LABS: White blood cell count 14, hemoglobin 9.1, hematocrit 31, platelets 160,000, ABG, pH of 7.4, pCO2 76, PO2 83, bicarb 39, O2 saturation 98%. ASSESSMENT AND PLAN: 1. Acute on chronic hypercapnic respiratory failure. The patient will be put back on BiPAP. Continue with bronchodilator therapy, IV antibiotics and pulmonary is following. 2. Pneumonia. Continue on the current IV antibiotic regimen. 3. Hyperkalemia. This may be secondary to Bactrim that the patient is receiving. We will treat the high potassium with the hyperkalemia protocol. Will repeat the potassium level at 3 p.m. 4. Constipation. Will check an abdominal x-ray. Continue on scheduled laxatives. 5. Volume overload. Continue on Lasix. 6. Morbid obesity. Aware. 7. Diabetes mellitus type 2. Continue on Lantus. 8. Gastrointestinal prophylaxis. Will start the patient on IV Protonix. 9. Deep vein thrombosis prophylaxis. Continue on heparin 5000 units subcutaneous every 12 hours.
[2016-11-12] MEDS: SENOKOT PO SCH (20:18)
[2016-11-12] MEDS: PRAVACHOL PO SCH (20:18)
[2016-11-12] MEDS: TYLENOL PO PRN (20:18)
[2016-11-13] MEDS: DUONEB (A & A) INH SCH ×6 (03:31→22:40)
[2016-11-13 05:11] LABS: ALLEN TEST YES; BE 21.6 mmoll (-3.0-3.0); BLOOD TYPE ARTERIAL; DRAW SITE R RADIAL; METHB 1.4 % (0.0-1.5); O2(CT) 12.9 mL/dL (15.0-23.0); PO2(98.6) 78 mmHg (60-100); SAMPLE BLOOD; SAO2 97.8 % (95.0-100.0); THB 9.6 g/dL (11.5-17.4); pH(98.6) 7.45 (7.35-7.45)
[2016-11-13 05:26] LABS: MODALITY BI PAP
[2016-11-13 05:27] LABS: PCO2(98.6) 70 mmHg (35-45)
[2016-11-13] MEDS: HUMULIN R SUBQ SCH ×4 (06:38→20:22)
[2016-11-13 07:43] LABS: BASO% 0.1 % (0.0-0.8); HEMATOCRIT 30.2 % (37.0-47.0); HEMOGLOBIN 8.9 g/dL (12.0-16.0); IMM GRAN# 0.24 X1000 (0.0-0.04); IMM GRAN% 1.5 % (0.0-0.5); MANUAL DIFF NEEDED? YES; MCH 26.5 PG (27-31); MCHC 29.5 g/dL (33-37); MCV 89.9 FL (81-99); MONO# 0.44 X1000 (0.11-0.59); MONO% 2.7 % (1.7-9.3); MPV 10.6 FL (7.4-10.4); NEUT% 92.7 % (42.2-75.2); PLT 167 X1000 (130-400); RBC 3.36 XMIL (4.2-5.4)
[2016-11-13 07:53] LABS: AGAP 7; BUN 20 mg/dL (8-22); CALCIUM 9.6 mg/dL (8.8-10.2); CHLORIDE 95 mmol/L (98-107); COSMO 291; POTASSIUM 5.7 mmol/L (3.5-5.1); SODIUM 144 mmol/L (136-145); TCO2 42 mmol/L (25-35)
[2016-11-13] MEDS: BREO ELLIPTA 100/25 MCG INH INH SCH (08:02)
[2016-11-13 08:06] LABS: BANDS 4 % (0-1); LYMPHS 2 % (21-51); MONO 2 % (1-9)
--- NOTE | 2016-11-13 08:54 | Diag Imaging Result Document ---
PROCEDURE NAME: CHEST-1 VIEW - 11/13/2016 COMPARISON: 11/11/2016. FINDINGS: Right PICC line is stable. Vague nonspecific bibasilar infiltrates and very mild right upper lobe infiltrate are essentially stable. No new consolidations identified. Cardiac silhouette is stable. IMPRESSION: Essentially stable chest.
[2016-11-13] MEDS: MERREM 500 MG in NS 50 ML IV SCH ×2 (09:19→20:21)
[2016-11-13] MEDS: TYLENOL PO PRN (09:19)
[2016-11-13] MEDS: XANAX PO SCH ×2 (09:20→22:43)
[2016-11-13] MEDS: PREDNISONE PO SCH (09:21)
[2016-11-13] MEDS: CARDIZEM CD PO SCH (09:21)
[2016-11-13] MEDS: MIRALAX PO SCH ×2 (09:21→20:21)
[2016-11-13] MEDS: NEXIUM PO SCH (09:22)
[2016-11-13] MEDS: LASIX IV SCH (09:22)
[2016-11-13] MEDS: HEPARIN SUBQ SCH ×2 (09:22→20:20)
[2016-11-13] MEDS: DULCOLAX PR SCH (09:22)
[2016-11-13] MEDS: LACTULOSE PO SCH ×2 (09:22→20:21)
[2016-11-13] MEDS: ANUSOL-HC CREAM PR SCH (09:26)
[2016-11-13] MEDS: LANTUS SUBQ SCH ×3 (09:33→20:21)
[2016-11-13] MEDS ORDERED: GOLYTELY PO ONE (16:18)
[2016-11-13] MEDS: SPIRIVA INH SCH (16:18)
[2016-11-13] MEDS: PROTONIX IV SCH (16:25)
[2016-11-13] MEDS: SODIUM CHLORIDE 0.9% INJ SCH (16:25)
[2016-11-13] MEDS: VELTASSA PO SCH (16:39)
[2016-11-13] MEDS: ZOFRAN IV PRN ×2 (16:41→22:43)
--- NOTE | 2016-11-13 17:54 | PROGRESS NOTE ---
DATE: 11/13/2016 PRESENT ILLNESS: The patient is being treated for pneumonia and a Klebsiella urinary tract infection. Despite receiving broad-spectrum of antibiotics, the patient's white count continues to increase. MEDICATIONS: This is day 10 of treatment with meropenem and vancomycin. The patient was on Septra, but I cannot find any record of it that she still on it now. PHYSICAL EXAMINATION: Vital Signs: Temperature is 99.5 degrees, pulse 130, respirations 26, blood pressure 124/59. General: This is a ill-appearing, middle-aged female. She seems to be a short of breath at bedrest. Cardiovascular: Heart tones were distant. They were rapid and regular. Lungs: Had decreased breath sounds. I did not hear any wheezes or rales. Abdomen: Soft and nontender. LAB AND X-RAY: The CBC today shows a white count of 16,430, hemoglobin 8.9, and platelet count 167,000. Creatinine 0.6. GFR is greater than 60. Chest x-ray shows bilateral infiltrates. X- ray the abdomen shows constipation, ileus, and stomach distention. ASSESSMENT AND PLAN: The patient has pneumonia. I plan to continue with the meropenem and vancomycin and add azithromycin. COMORBIDITIES: Diabetes mellitus, chronic obstructive pulmonary disease, obstructive sleep apnea, and obesity.
[2016-11-13] MEDS: ZITHROMAX 500 MG/NS 250 ML IV SCH (18:10)
--- NOTE | 2016-11-13 19:54 | PROGRESS NOTE ---
DATE: 11/13/2016 SUBJECTIVE: Patient is resting comfortably, a little bit tachypneic and lethargic as per family who is at bedside. OBJECTIVE: Vital Signs: Temperature 97.8 degrees, heart rate 116, respiratory rate 22, blood pressure 147/68, O2 saturation 94% on BiPAP. General Examination: This is a morbidly obese, female lying in bed, in no acute distress. HEENT: Head is normocephalic, atraumatic. Anicteric sclerae and pale conjunctivae. Mucous membranes moist. Neck: Supple. No JVD noted. No carotid bruits. No lymphadenopathy. No thyromegaly. Cardiovascular: S1, S2 heard. No murmurs, gallops, or rubs. Regular rate and rhythm. Respiratory: Decreased breath sounds globally. No crackles and no rales. Abdomen: Soft, nontender to palpation, bowel sounds present, no organomegaly. Extremities: 3+ pitting edema. No cyanosis or clubbing. Peripheral pulses present in both legs. Neurological: Patient is lethargic but apparently she moves 4 extremities. LABORATORY DATA: White cell count 16.43, hemoglobin 8.9, hematocrit 30.2. ABG shows pH 7.45, pCO2 70, PO2 78. BMP unremarkable except mild elevation of potassium 5.7. ASSESSMENT AND PLAN: 1. Acute on chronic hypercapnic respiratory failure. The patient has been on BiPAP for 2 days and the CO2 level is still high so we have recommended the nurse to try to keep this patient on BiPAP as much as we can. 2. Community-acquired pneumonia. We will continue with IV antibiotics, in this case meropenem and vancomycin. We will continue with the same management. 3. Hyperkalemia could be secondary to Bactrim usage persistently high so we prefer to add Aldactone to his current treatment. 4. Constipation. Aware. 5. Morbid obesity. Aware. 6. Diabetes mellitus. We will continue with Lantus. 7. Deep vein thrombosis prophylaxis. On heparin. 8. Code status. Full code.
[2016-11-13] MEDS: SENOKOT PO SCH (20:20)
[2016-11-13] MEDS: PRAVACHOL PO SCH (20:21)
[2016-11-14] MEDS: ANUSOL-HC CREAM PR SCH ×3 (01:11→20:49)
[2016-11-14] MEDS: DUONEB (A & A) INH SCH ×6 (03:00→23:10)
[2016-11-14] MEDS: ZOFRAN IV PRN (03:16)
[2016-11-14] MEDS: ULTRAM PO PRN (05:41)
[2016-11-14] MEDS: VANCOMYCIN 1,300 MG in NS 250 ML IV SCH (06:05)
[2016-11-14] MEDS: HUMULIN R SUBQ SCH ×4 (06:31→22:14)
[2016-11-14 09:05] LABS: ALLEN TEST YES; BLOOD TYPE ARTERIAL; DRAW SITE L RADIAL; O2(CT) 12.7 mL/dL (15.0-23.0); PO2(98.6) 73 mmHg (60-100); SAMPLE BLOOD; SAO2 96.6 % (95.0-100.0); THB 9.6 g/dL (11.5-17.4); pH(98.6) 7.42 (7.35-7.45)
[2016-11-14 09:06] LABS: MODALITY CANNULA
[2016-11-14 09:07] LABS: AGAP 7; BUN 19 mg/dL (8-22); CALCIUM 10.4 mg/dL (8.8-10.2); CHLORIDE 97 mmol/L (98-107); COSMO 280; POTASSIUM 5.1 mmol/L (3.5-5.1); SODIUM 140 mmol/L (136-145); TCO2 36 mmol/L (25-35)
[2016-11-14 09:07] LABS: PCO2(98.6) 66 mmHg (35-45)
[2016-11-14 09:08] LABS: BASO% 0.4 % (0.0-0.8); EOS# 0.02 X1000 (0.0-0.7); EOS% 0.1 % (0.0-10.0); HEMATOCRIT 30.9 % (37.0-47.0); HEMOGLOBIN 9.2 g/dL (12.0-16.0); IMM GRAN# 0.23 X1000 (0.0-0.04); IMM GRAN% 1.4 % (0.0-0.5); LYMPH% 4.3 % (20.5-51.1); MANUAL DIFF NEEDED? YES; MCH 26.7 PG (27-31); MCHC 29.8 g/dL (33-37); MCV 89.6 FL (81-99); MONO# 0.67 X1000 (0.11-0.59); MONO% 4.1 % (1.7-9.3); MPV 10.3 FL (7.4-10.4); NEUT% 89.7 % (42.2-75.2); PLT 169 X1000 (130-400); RBC 3.45 XMIL (4.2-5.4)
[2016-11-14] MEDS: SPIRIVA INH SCH (09:11)
[2016-11-14] MEDS: BREO ELLIPTA 100/25 MCG INH INH SCH (09:12)
[2016-11-14 09:29] LABS: BANDS 2 % (0-1); LYMPHS 8 % (21-51)
[2016-11-14] MEDS: XANAX PO SCH ×2 (10:43→20:48)
[2016-11-14] MEDS: NEXIUM PO SCH (10:44)
[2016-11-14] MEDS: CARDIZEM CD PO SCH (10:44)
[2016-11-14] MEDS: PREDNISONE PO SCH ×2 (10:44→14:49)
[2016-11-14] MEDS: LACTULOSE PO SCH ×2 (10:45→20:48)
[2016-11-14] MEDS: DULCOLAX PR SCH (10:45)
[2016-11-14] MEDS: MIRALAX PO SCH ×2 (10:45→20:49)
[2016-11-14] MEDS: MERREM 500 MG in NS 50 ML IV SCH ×2 (10:46→20:50)
[2016-11-14] MEDS: LASIX IV SCH (10:46)
[2016-11-14] MEDS: HEPARIN SUBQ SCH ×2 (10:46→20:48)
[2016-11-14] MEDS: LANTUS SUBQ SCH ×2 (10:49→20:50)
[2016-11-14] MEDS: NORCO-5 PO PRN (12:34)
[2016-11-14] MEDS: VELTASSA PO SCH (14:43)
--- NOTE | 2016-11-14 15:08 | PROGRESS NOTE ---
DATE: 11/14/2016 SUBJECTIVE: Patient is a little bit more alert today. He is still tachypneic. A little bit less lethargic today. OBJECTIVE: Vital Signs: Temperature 97.6 degrees, heart rate 125, respiratory rate 20, blood pressure 119/52, O2 saturation 100% on BiPAP machine. General Examination: This is a morbidly obese and chronically ill appearing, female, 61 years old, lying in bed, in mild respiratory distress. HEENT: Head is normocephalic, atraumatic. Anicteric sclerae. Pale conjunctivae. Mucous membranes moist. Neck: Supple. No JVD noted. No carotid bruits. No lymphadenopathy. No thyromegaly. Cardiovascular: S1, S2 heard. No murmurs, gallops, or rubs. Regular rate and rhythm. Respiratory: Decreased breath sounds globally. There is still some wheezing in both bases. Patient is not using any accessory muscles or having work of breathing. Abdomen: Soft. Nontender to palpation. Bowel sounds present. No organomegaly. Extremities: No clubbing or cyanosis. There is 3+ pitting edema. Peripheral pulses present in both legs. Neurological: Patient is a little bit more awake comparing with yesterday. She moves 4 extremities. LABORATORY DATA: White cell count 16.39, hemoglobin 9.2, hematocrit 30.9, platelets 169,000. ABG shows pH 7.42, pCO2 66, PO2 73. BMP unremarkable. ASSESSMENT AND PLAN: 1. Acute on chronic respiratory failure. Patient has been on BiPAP for the last 3 days and unfortunately, she needs to be on that machine for as much time she can tolerate the mask. CO2 is basically the same in comparing with yesterday. We will continue with same management. 2. Community-acquired pneumonia. The patient is on meropenem and vancomycin. White cell count is still elevated. We will continue checking CBC. 3. Hyperkalemia, resolved. 4. Constipation, aware. Patient had a bowel movement yesterday. 5. Morbid obesity, aware. 6. Diabetes mellitus type 2. We will continue with Lantus and sliding scale insulin as well.
[2016-11-14] MEDS: PROTONIX IV SCH (16:00)
--- NOTE | 2016-11-14 16:45 | PROGRESS NOTE ---
DATE: 11/14/2016 PRESENT ILLNESS: The patient is being treated for pneumonia and a Klebsiella urinary tract infection. MEDICATIONS: This is day 11 of treatment with vancomycin and meropenem and day 1 of treatment with azithromycin. PHYSICAL EXAMINATION: Vital Signs: Temperature is 97.6, pulse 125, respirations 20, blood pressure 119/52. General: This is an ill-appearing middle-aged female who is in no acute distress today. She looks less dyspneic than she did yesterday, and she is also more alert today. Lungs: Clear to auscultation. Cardiovascular: Regular heart rate. Abdomen: Soft and nontender. LAB AND X-RAY: The patient's CBC today showed a white count of 16,390, hemoglobin 9.2 and the platelet count is 169,000. Blood gases show a pH of 7.42, a pO2 of 73, pCO2 of 66. Creatinine 0.6. GFR is greater than 60. ASSESSMENT AND PLAN: The patient has pneumonia and a urinary tract infection. I plan to continue meropenem, vancomycin and azithromycin. COMORBIDITIES: The patient's main comorbidities include diabetes mellitus, chronic obstructive pulmonary disease, obstructive sleep apnea and obesity.
[2016-11-14] MEDS: SODIUM CHLORIDE 0.9% INJ SCH (16:57)
[2016-11-14] MEDS: ZITHROMAX 500 MG/NS 250 ML IV SCH (18:50)
[2016-11-14] MEDS: SENOKOT PO SCH (20:49)
[2016-11-14] MEDS: PRAVACHOL PO SCH (20:49)
[2016-11-15 04:13] LABS: ALLEN TEST YES; BE 18.7 mmoll (-3.0-3.0); BLOOD TYPE ARTERIAL; DRAW SITE R RADIAL; METHB 1.6 % (0.0-1.5); O2(CT) 11.5 mL/dL (15.0-23.0); PO2(98.6) 55 mmHg (60-100); SAMPLE BLOOD; pH(98.6) 7.45 (7.35-7.45)
[2016-11-15 04:17] LABS: MODALITY VENTIMASK
[2016-11-15 04:19] LABS: PCO2(98.6) 65 mmHg (35-45)
[2016-11-15] MEDS: VANCOMYCIN 1,300 MG in NS 250 ML IV SCH (05:11)
[2016-11-15] MEDS: DUONEB (A & A) INH SCH ×6 (05:31→22:58)
[2016-11-15 06:50] LABS: BASO% 0.2 % (0.0-0.8); HEMATOCRIT 32.1 % (37.0-47.0); HEMOGLOBIN 9.5 g/dL (12.0-16.0); IMM GRAN# 0.24 X1000 (0.0-0.04); IMM GRAN% 1.8 % (0.0-0.5); LYMPH# 0.76 X1000 (1.2-3.4); LYMPH% 5.6 % (20.5-51.1); MANUAL DIFF NEEDED? YES; MCH 26.5 PG (27-31); MCHC 29.6 g/dL (33-37); MCV 89.7 FL (81-99); MONO# 0.69 X1000 (0.11-0.59); MONO% 5.1 % (1.7-9.3); MPV 10.4 FL (7.4-10.4); NEUT% 87.3 % (42.2-75.2); PLT 172 X1000 (130-400); RBC 3.58 XMIL (4.2-5.4)
[2016-11-15 07:15] LABS: BANDS 4 % (0-1); HYPOCHROM 2+; LYMPHS 8 % (21-51); MONO 6 % (1-9); NRBC 1 % (0-0)
[2016-11-15 07:18] LABS: AGAP 9; BUN 19 mg/dL (8-22); CALCIUM 10.7 mg/dL (8.8-10.2); CHLORIDE 97 mmol/L (98-107); COSMO 288; POTASSIUM 4.8 mmol/L (3.5-5.1); SODIUM 144 mmol/L (136-145); TCO2 38 mmol/L (25-35)
[2016-11-15] MEDS ORDERED: INSULIN PEN NEEDLES ONE (07:52)
[2016-11-15] MEDS: BREO ELLIPTA 100/25 MCG INH INH SCH (09:11)
[2016-11-15] MEDS: SPIRIVA INH SCH (09:11)
[2016-11-15] MEDS: MERREM 500 MG in NS 50 ML IV SCH ×2 (10:00→21:40)
[2016-11-15] MEDS: ANUSOL-HC CREAM PR SCH ×2 (10:01→21:00)
[2016-11-15] MEDS: DULCOLAX PR SCH (10:01)
[2016-11-15] MEDS: HEPARIN SUBQ SCH ×2 (10:01→21:40)
[2016-11-15] MEDS: CARDIZEM CD PO SCH ×2 (10:01→18:41)
[2016-11-15] MEDS: LASIX IV SCH (10:02)
[2016-11-15] MEDS: NEXIUM PO SCH ×2 (10:02→18:42)
[2016-11-15] MEDS: LACTULOSE PO SCH ×3 (10:02→23:31)
[2016-11-15] MEDS: MIRALAX PO SCH ×3 (10:02→23:32)
[2016-11-15] MEDS: PREDNISONE PO SCH ×2 (10:02→18:42)
[2016-11-15] MEDS: LANTUS SUBQ SCH ×2 (10:04→21:00)
[2016-11-15] MEDS: XANAX PO SCH ×3 (10:44→21:40)
[2016-11-15] MEDS: HUMULIN R SUBQ SCH ×3 (11:23→21:00)
[2016-11-15] MEDS: LOPRESSOR IV SCH ×3 (11:24→23:32)
--- NOTE | 2016-11-15 13:48 | PROGRESS NOTE ---
DATE: 11/15/2016 SUBJECTIVE: Patient is definitely more lethargic today. She is still tachypneic. Does follow commands but after that she falls asleep again. OBJECTIVE: Vital Signs: Temperature 97.6 degrees, heart rate 118, respiratory rate 22, blood pressure 136/79, O2 saturation 92% on BiPAP machine. General Examination: This is a morbidly obese, chronically ill-looking and frail, 61-year-old female lying in bed, in mild respiratory distress. HEENT: Head is normocephalic, atraumatic. Anicteric sclerae and pale conjunctivae. Mucous membranes moist. Neck: Supple. No JVD noted. No carotid bruits. No lymphadenopathy. No thyromegaly. Cardiovascular: S1, S2 heard. No murmurs, gallops, or rubs. Regular rate and rhythm. Respiratory: Decreased breath sounds globally with some wheezing in both bases. Patient is not using any accessory muscles or having work of breathing. Abdomen: Soft, nontender to palpation. Bowel sounds present. No organomegaly. Extremities: No clubbing, cyanosis, and 3+ pitting edema in both lower extremities. Peripheral pulses present in both legs. Neurological: Patient is still lethargic although moves her extremities. LABORATORY DATA: White cell count 13.48, hemoglobin 9.5, hematocrit 32.1, platelets 172,000 ABG shows pH 7.35, pCO2 of 65 BMP unremarkable. ASSESSMENT AND PLAN: 1. Acute on chronic respiratory failure. Patient is still tachypneic although the CO2 has decreased a little bit. Patient using by now BiPAP machine and she has become kind of dependent on that machine. There was no family at bedside, but the prognosis that we mentioned before is very poor because of this end-stage COPD. 2. Community-acquired pneumonia. Patient is on vancomycin, meropenem, and also azithromycin has been added to his current treatment as per Dr. Bro from infectious disease. White cell count is still elevated but a little bit better in comparing with yesterday. 3. Urinary tract infection. We will continue with the same antibiotics. 4. Constipation. Patient had a bowel movement yesterday. 5. Morbid obesity, aware. 6. Diabetes mellitus type 2. We will continue with Lantus and sliding scale insulin.
--- NOTE | 2016-11-15 15:41 | PROGRESS NOTE ---
DATE: 11/15/2016 PRESENT ILLNESS: The patient is being treated with antibiotics for pneumonia and Klebsiella urinary tract infection. MEDICATIONS: The patient has had 12 days of treatment with a combination of vancomycin and meropenem and 2 days of treatment with azithromycin. PHYSICAL EXAMINATION: Vital Signs: Temperature is 97.6 degrees, pulse 118, respirations 22, blood pressure 114/49. General: This is an ill-appearing, middle-aged female. She is in no acute distress. She is wearing a BiPAP mask. Lungs: Clear to auscultation. Cardiovascular: Heart rate is regular. Abdomen: Soft and nontender. Ears, Nose, and Throat: The patient is wearing a BiPAP mask. LABORATORY AND X-RAY: The patient's CBC shows a white count of 13,480, hemoglobin 9.5, and platelet count 172,000. Blood gases show a pH of 7.45, a PO2 of 55, and a pCO2 of 65. A creatinine is 0.6. GFR is greater than 60. ASSESSMENT AND PLAN: The patient has pneumonia and a Klebsiella urinary tract infection. The plan is to continue on with azithromycin, meropenem, and vancomycin. COMORBIDITIES: Include diabetes mellitus, chronic obstructive pulmonary disease, obstructive sleep apnea, and obesity.
[2016-11-15] MEDS ORDERED: D50W SYRINGE ONE (16:14)
[2016-11-15] MEDS ORDERED: D50W SYRINGE IV ONE (16:21)
[2016-11-15] MEDS: D5 NS 1,000 ML IV SCH (16:47)
[2016-11-15] MEDS: PROTONIX IV SCH (16:48)
[2016-11-15] MEDS: SODIUM CHLORIDE 0.9% INJ SCH (16:48)
[2016-11-15] MEDS: ZITHROMAX 500 MG/NS 250 ML IV SCH (16:58)
[2016-11-15] MEDS: VELTASSA PO SCH (18:42)
[2016-11-15] MEDS: PRAVACHOL PO SCH (21:40)
[2016-11-15] MEDS: SENOKOT PO SCH (21:40)
[2016-11-16] MEDS: DUONEB (A & A) INH SCH ×6 (03:28→23:22)
[2016-11-16 04:04] LABS: ALLEN TEST YES; BLOOD TYPE ARTERIAL; DRAW SITE R RADIAL; METHB 1.4 % (0.0-1.5); O2(CT) 13.2 mL/dL (15.0-23.0); PO2(98.6) 56 mmHg (60-100); SAMPLE BLOOD; SAO2 95.3 % (95.0-100.0); THB 10.3 g/dL (11.5-17.4); pH(98.6) 7.44 (7.35-7.45)
[2016-11-16 04:09] LABS: MODALITY BI PAP; PCO2(98.6) 54 mmHg (35-45)
[2016-11-16] MEDS: D5 NS 1,000 ML IV SCH ×2 (04:21→14:42)
[2016-11-16] MEDS: VANCOMYCIN 1,300 MG in NS 250 ML IV SCH (05:06)
[2016-11-16] MEDS: LOPRESSOR IV SCH ×2 (05:06→12:47)
[2016-11-16] MEDS: HUMULIN R SUBQ SCH ×5 (06:41→20:14)
[2016-11-16 07:05] LABS: BASO% 0.4 % (0.0-0.8); EOS# 0.08 X1000 (0.0-0.7); EOS% 0.6 % (0.0-10.0); HEMATOCRIT 31.7 % (37.0-47.0); HEMOGLOBIN 9.5 g/dL (12.0-16.0); IMM GRAN# 0.29 X1000 (0.0-0.04); IMM GRAN% 2.1 % (0.0-0.5); LYMPH# 0.81 X1000 (1.2-3.4); MCH 26.6 PG (27-31); MCV 88.8 FL (81-99); MONO# 0.47 X1000 (0.11-0.59); MONO% 3.5 % (1.7-9.3); MPV 10.5 FL (7.4-10.4); NEUT% 87.4 % (42.2-75.2); PLT 159 X1000 (130-400); RBC 3.57 XMIL (4.2-5.4)
[2016-11-16 07:13] LABS: MANUAL DIFF NEEDED? YES
[2016-11-16 07:14] LABS: LYMPHS 10 % (21-51); MONO 8 % (1-9); NRBC 3 % (0-0)
[2016-11-16 07:43] LABS: AGAP 12; BUN 24 mg/dL (8-22); CALCIUM 9.1 mg/dL (8.8-10.2); CHLORIDE 100 mmol/L (98-107); COSMO 290; POTASSIUM 3.6 mmol/L (3.5-5.1); SODIUM 144 mmol/L (136-145); TCO2 32 mmol/L (25-35)
[2016-11-16] MEDS: BREO ELLIPTA 100/25 MCG INH INH SCH (07:45)
[2016-11-16] MEDS: SPIRIVA INH SCH (07:45)
[2016-11-16] MEDS: DULCOLAX PR SCH (09:01)
[2016-11-16] MEDS: LANTUS SUBQ SCH (09:02)
[2016-11-16] MEDS: LASIX IV SCH (09:02)
[2016-11-16] MEDS: NEXIUM PO SCH (09:03)
[2016-11-16] MEDS: PREDNISONE PO SCH (09:03)
[2016-11-16] MEDS: CARDIZEM CD PO SCH (09:03)
[2016-11-16] MEDS: HEPARIN SUBQ SCH ×2 (09:04→20:14)
[2016-11-16] MEDS: XANAX PO SCH ×2 (09:04→20:15)
[2016-11-16] MEDS: MERREM 500 MG in NS 50 ML IV SCH (09:04)
[2016-11-16] MEDS: LACTULOSE PO SCH ×2 (09:04→20:14)
[2016-11-16] MEDS: VITAMIN D PO SCH (09:05)
[2016-11-16] MEDS: VELTASSA PO SCH (09:05)
[2016-11-16] MEDS: ANUSOL-HC CREAM PR SCH ×2 (09:06→20:13)
[2016-11-16] MEDS: MIRALAX PO SCH ×2 (09:18→20:15)
[2016-11-16] MEDS ORDERED: LASIX IV ONE (10:01)
[2016-11-16] MEDS ORDERED: AMIDATE ONE (10:38)
[2016-11-16] MEDS ORDERED: QUELICIN (DOSE) ONE (10:39)
[2016-11-16] MEDS ORDERED: DIPRIVAN 1% IV PRN (11:05)
--- NOTE | 2016-11-16 11:18 | PROGRESS NOTE ---
DATE: 11/16/2016 SUBJECTIVE: I came to see this patient in the morning and she was in acute respiratory distress, more tachypneic in comparing with yesterday. The heart rate was up to 140s and 150s. Showing some sinus tachycardia. OBJECTIVE: Vital Signs: Temperature 98.1 degrees, heart rate 140, respiratory rate 30, and O2 saturations 89-90% on BiPAP machine and 100% on oxygen. General Examination: This is a morbidly obese, chronically ill-looking, frail, 61-year-old, female lying in bed, in acute respiratory distress. HEENT: Head is normocephalic and atraumatic. Anicteric sclerae and pale conjunctivae. Mucous membranes dry. Neck: Supple. No JVD noted. No carotid bruits. No lymphadenopathy. No thyromegaly. Cardiovascular Examination: S1 and S2 heard. Tachycardic. No murmurs, gallops, or rubs. Regular rate and rhythm. Respiratory: Patient using accessory muscles and having great amount of work of breathing. Abdomen: Soft, nontender to palpation. Bowel sounds present. No organomegaly. Extremities: No clubbing, cyanosis, and 2+ pitting edema in both lower extremities. Peripheral pulses present in both legs. Neurological Examination: Patient is tachypneic, lethargic, does not follow commands. Laboratory Data: White cell count 13.59, hemoglobin 9.5, hematocrit 31.7, platelets 159,000. ABG shows pH 7.44, pCO2 54, PO2 56. BMP unremarkable. ASSESSMENT AND PLAN: 1. Acute on chronic respiratory failure. We know that this patient has end-stage chronic obstructive pulmonary disease and although the CO2 was getting better clinically, she was worsening. She was getting worse and worse so even with BiPAP 100% oxygenation, we were able to provide only 85-89% O2 saturation. Because she was on more respiratory distress, we finally made the decision to intubate this patient. I understand that this will be a difficult extubation because of the end-stage chronic obstructive pulmonary disease. Family was informed about this possibility. At this point, we are going to transfer this patient to the intensive care unit. We will keep following along. 2. Community-acquired pneumonia. Patient is on vancomycin and azithromycin. We will continue with the same management. 3. Klebsiella urinary tract infection. We will continue with the same antibiotic coverage. 4. Constipation. Patient had a bowel movement 2 days ago. 5. Morbid obesity, aware. 6. Diabetes type 2. The patient has been on because the glucose has been getting lower yesterday. We will continue with same management.
[2016-11-16] MEDS ORDERED: ATIVAN IV PRN (12:09)
--- NOTE | 2016-11-16 13:14 | Diag Imaging Result Document ---
PROCEDURE NAME: CHEST-1 VIEW - 11/16/2016 SINGLE FRONTAL RADIOGRAPH OF THE CHEST: COMPARISON: 11/13/2016. FINDINGS: There has been interval intubation. The tip of the ET tube projects over the trachea and above the magan at about the T4 level. An electrode pad projects over the left chest wall. There has been interval worsening of the infiltrate on the right which now diffusely affects the right lung. There also appears to be a small right effusion. The minimal infiltrate at the left lung base appears to have essentially resolved. Right PICC line is stable. Cardiac silhouette is unchanged. IMPRESSION: 1. Interval worsening of infiltrate on the right as described and essential resolution of the very mild left basilar infiltrate seen previously. 2. Interval intubation as described.
[2016-11-16 13:50] LABS: ALLEN TEST NO; BE 11.2 mmoll (-3.0-3.0); BLOOD TYPE ARTERIAL; DRAW SITE R BRACHIAL; METHB 2.2 % (0.0-1.5); O2(CT) 13.2 mL/dL (15.0-23.0); PO2(98.6) 61 mmHg (60-100); SAMPLE BLOOD; SAO2 95.5 % (95.0-100.0); SRATE 12 BPM; THB 10.2 g/dL (11.5-17.4); TVOL 500 mL; pH(98.6) 7.45 (7.35-7.45)
[2016-11-16 13:52] LABS: MODALITY VENTILATOR; PCO2(98.6) 53 mmHg (35-45)
[2016-11-16] MEDS ORDERED: MORPHINE ONE (14:33)
[2016-11-16] MEDS: ATIVAN IV PRN (14:35)
[2016-11-16] MEDS: MORPHINE IV PRN (14:36)
[2016-11-16] MEDS: PROTONIX IV SCH (14:42)
[2016-11-16] MEDS: SODIUM CHLORIDE 0.9% INJ SCH (14:43)
--- NOTE | 2016-11-16 16:26 | PROGRESS NOTE ---
DATE: 11/16/2016 PRESENT ILLNESS: The patient has worsening right lung pneumonia. The left lung infiltrate is resolving. MEDICATIONS: The patient is on a combination of vancomycin, meropenem, and azithromycin. PHYSICAL EXAMINATION: Vital Signs: Temperature is 98 degrees, pulse 117, respirations 12, blood pressure 138/85. General: This is an ill-appearing, middle-aged female. She is intubated and sedated. Ears, Nose, Throat: The patient has oral tracheal tube in place. Lungs: Clear to auscultation. Cardiovascular: The patient's heart rate was rapid and regular. Abdomen: Soft and nontender. LABORATORY AND X-RAY: Chest x-ray, as mentioned above, shows worsening on the right-sided infiltrate and resolution of the one on the left side. Blood gases show a pH of 7.45, a PO2 of 61, and a pCO2 of 53. Creatinine 0.6. GFR is greater than 60. CBC shows a white count of 13,590, hemoglobin 9.5, and platelet count 159,000. ASSESSMENT AND PLAN: Patient has pneumonia. The plan is to continue with the current antibiotics pending the results of the sputum culture I ordered. COMORBIDITIES: Diabetes mellitus, chronic obstructive pulmonary disease, obstructive sleep apnea, and obesity.
[2016-11-16] MEDS: ZITHROMAX 500 MG/NS 250 ML IV SCH (16:28)
[2016-11-16] MEDS: MERREM 1 GM in NS 50 ML IV SCH ×2 (17:30→23:05)
[2016-11-16] MEDS: SENOKOT PO SCH (20:15)
[2016-11-16] MEDS: PRAVACHOL PO SCH (20:15)
[2016-11-16] MEDS ORDERED: NS 500 ML ONE (20:48)
[2016-11-16] MEDS ORDERED: SOLU-CORTEF IV ONE (20:50)
[2016-11-16] MEDS ORDERED: NS 500 ML IV ONE (20:50)
[2016-11-16] MEDS ORDERED: LEVOPHED 8 MG in D5 1/2 NS 250 ML IV SCH (21:00)
[2016-11-16 21:23] LABS: ALLEN TEST YES; BE 10.2 mmoll (-3.0-3.0); BLOOD TYPE ARTERIAL; DRAW SITE L RADIAL; METHB 1.7 % (0.0-1.5); O2(CT) 8.9 mL/dL (15.0-23.0); PO2(98.6) 78 mmHg (60-100); SAMPLE BLOOD; SRATE 12 BPM; THB 6.5 g/dL (11.5-17.4); TVOL 500 mL; pH(98.6) 7.42 (7.35-7.45)
[2016-11-16 21:24] LABS: PCO2(98.6) 55 mmHg (35-45)
[2016-11-16 21:25] LABS: MODALITY VENTILATOR
[2016-11-17] MEDS: ATIVAN IV PRN ×4 (01:07→12:26)
[2016-11-17] MEDS: D5 NS 1,000 ML IV SCH (01:09)
[2016-11-17] MEDS: DUONEB (A & A) INH SCH ×6 (03:37→22:42)
[2016-11-17 04:42] LABS: ALLEN TEST YES; BE 6.9 mmoll (-3.0-3.0); BLOOD TYPE ARTERIAL; DRAW SITE L RADIAL; METHB 1.8 % (0.0-1.5); O2(CT) 12.8 mL/dL (15.0-23.0); PO2(98.6) 98 mmHg (60-100); SAMPLE BLOOD; SAO2 99.2 % (95.0-100.0); SRATE 12 BPM; THB 9.4 g/dL (11.5-17.4); TVOL 500 mL
[2016-11-17 04:44] LABS: MODALITY VENTILATOR; PCO2(98.6) 53 mmHg (35-45)
[2016-11-17 04:52] LABS: BASO% 0.1 % (0.0-0.8); EOS# 0.02 X1000 (0.0-0.7); EOS% 0.1 % (0.0-10.0); HEMATOCRIT 26.7 % (37.0-47.0); IMM GRAN# 0.17 X1000 (0.0-0.04); IMM GRAN% 1.1 % (0.0-0.5); LYMPH# 0.69 X1000 (1.2-3.4); LYMPH% 4.4 % (20.5-51.1); MANUAL DIFF NEEDED? YES; MCH 26.7 PG (27-31); MONO# 0.36 X1000 (0.11-0.59); MONO% 2.3 % (1.7-9.3); MPV 11.3 FL (7.4-10.4); PLT 131 X1000 (130-400)
[2016-11-17 05:01] LABS: LYMPHS 8 % (21-51); MONO 6 % (1-9)
[2016-11-17 05:08] LABS: AGAP 14; BUN 29 mg/dL (8-22); CALCIUM 8.1 mg/dL (8.8-10.2); CHLORIDE 104 mmol/L (98-107); COSMO 302; POTASSIUM 3.2 mmol/L (3.5-5.1); SODIUM 146 mmol/L (136-145); TCO2 28 mmol/L (25-35)
[2016-11-17] MEDS: VANCOMYCIN 1,300 MG in NS 250 ML IV SCH (05:28)
[2016-11-17] MEDS: HUMULIN R SUBQ SCH ×4 (06:06→20:39)
--- NOTE | 2016-11-17 07:34 | Diag Imaging Result Document ---
PROCEDURE NAME: CHEST-1 VIEW - 11/17/2016 PORTABLE CHEST X-RAY: COMPARISON: 11/16/2016. FINDINGS: Stable endotracheal tube in good position. Stable ill-defined infiltrate throughout the right lung. Slight worsening in trace infiltrate or atelectasis at the left lung base as well. Stable right PICC line in good position. Heart size remains slightly enlarged. IMPRESSION: Slight worsening infiltrate at the left lung base.
[2016-11-17] MEDS: MORPHINE IV PRN ×3 (07:44→20:43)
[2016-11-17] MEDS: MERREM 1 GM in NS 50 ML IV SCH ×3 (08:09→23:09)
[2016-11-17] MEDS: ANUSOL-HC CREAM PR SCH ×2 (08:09→20:39)
[2016-11-17] MEDS: HEPARIN SUBQ SCH ×2 (08:09→20:37)
[2016-11-17] MEDS: LASIX IV SCH ×2 (08:09→20:37)
[2016-11-17] MEDS: DULCOLAX PR SCH (08:09)
[2016-11-17] MEDS: CLINIMIX E 4.25%-5% SOLUTION 1,000 ML IV SCH ×2 (11:30→20:38)
--- NOTE | 2016-11-17 13:40 | PROGRESS NOTE ---
DATE: 11/17/2016 PRESENT ILLNESS: The patient is in intensive care unit. She is being treated for respiratory failure most likely due to a combination of events including congestive heart failure and pneumonia. MEDICATIONS: Currently, the patient is receiving azithromycin, which is the 4th day of treatment with this antibiotic, and the combination of vancomycin and meropenem, which is 15th day of treatment with both of these agents. PHYSICAL EXAMINATION: Vital Signs: Temperature is 97.2 degrees, pulse 91, respirations 9, blood pressure 117/71. General: This is an ill-appearing, middle-aged female. She is intubated and sedated. Lungs: Bilateral rhonchi. Cardiovascular: Regular heart rate. Abdomen: Soft and nontender. Extremities: Edema in both legs. No erythema. LABORATORY AND X-RAY: Chest x-ray shows worsening of the patient's infiltrates. Creatinine 0.9. GFR is greater than 60. Patient's blood gases show a pH of 7.4, PO2 of 98, and a pCO2 of 53. The patient's CBC shows a white count of 15,990, hemoglobin 8, and platelet count 131,000. Thus far, the patient's sputum culture is not growing anything. PLAN: My plan now is to stop the patient's current antibiotics and instead start her on Septra, being given as an elixir through the NG tube. COMORBIDITIES: Diabetes mellitus, chronic obstructive pulmonary disease, obstructive sleep apnea, and obesity. cc: David Bro MD
--- NOTE | 2016-11-17 13:46 | Diag Imaging Result Document ---
PROCEDURE NAME: CHEST/ABD TUBE PLACEMENT - 11/17/2016 NG TUBE PLACEMENT: FINDINGS: The NG tube tip is below the diaphragm presumably in the stomach. There continues to be pleural fibrosis or fluid on the right.
[2016-11-17] MEDS: PREDNISONE PO SCH (14:00)
[2016-11-17] MEDS: SPIRIVA INH SCH (14:23)
[2016-11-17] MEDS: BREO ELLIPTA 100/25 MCG INH INH SCH (14:24)
[2016-11-17] MEDS: XANAX PO SCH ×2 (14:25→20:38)
[2016-11-17] MEDS: LACTULOSE PO SCH ×2 (14:26→20:38)
[2016-11-17] MEDS: NEXIUM PO SCH (14:34)
[2016-11-17] MEDS: MIRALAX PO SCH ×2 (14:34→20:38)
[2016-11-17] MEDS: CARDIZEM CD PO SCH (14:35)
[2016-11-17] MEDS: SEPTRA LIQUID PO SCH ×2 (14:35→20:55)
[2016-11-17] MEDS: PROTONIX IV SCH (15:45)
[2016-11-17] MEDS: SODIUM CHLORIDE 0.9% INJ SCH (15:45)
--- NOTE | 2016-11-17 16:01 | PROGRESS NOTE ---
DATE: 11/17/2016 SUBJECTIVE: Patient is sedated and intubated. Does not follow commands. OBJECTIVE: Vital Signs: Temperature 97.2 degrees, heart rate 91, respiratory 23, blood pressure 117/71, O2 saturation 98% on mechanical ventilator at FiO2 of 50%. General Examination: This is a morbidly obese, chronically ill-looking and frail, 61-year-old female lying in bed, sedated and intubated. HEENT: Head is normocephalic, atraumatic. Anicteric sclerae and pale conjunctivae. Mucous membranes moist. Neck: Supple. No JVD noted. No carotid bruits. No lymphadenopathy. Cardiovascular: S1, S2 heard. Tachycardic. No murmurs, gallops, or rubs. Regular rate and rhythm. Respiratory: Mild coarse breath sounds in both bases. The patient is intubated. No work of breathing or using accessory muscles. Abdomen: Soft, nontender to palpation. Bowel sounds present. No organomegaly. Extremities: No clubbing or cyanosis and 2+ pitting edema in both lower extremities. Peripheral pulses present in both legs. Neurological: Patient is lethargic. Does not follow commands. Sedated and intubated. LABORATORY DATA: White cell count 15.66, hemoglobin 8, hematocrit 26.7, platelets 131,000. ABGs show pH 7.40, pCO2 53, PO2 98, sodium 146, potassium 3.2, chloride 104, bicarbonate 28, BUN 29, creatinine 0.1. ASSESSMENT AND PLAN: 1. Acute on chronic respiratory failure, on ventilator. The patient was finally intubated after she was struggling with work of breathing for the last 2-3 days. By now, arterial blood gas shows a good gas exchange. At this time, we are going to continue with ventilator. Dr. Lange from Pulmonary following this patient. We have not seen the family today, but 2 days ago the family was informed of the above, this possible need for intubation and they already know that this will be an extremely difficult extubation for this patient. We are going to monitor her closely. 2. Community-acquired pneumonia. Patient has received vancomycin and meropenem for 15 days, so Dr. Bro who is following this patient has stopped both antibiotics and switched to Septra solution that is going to be given by nasogastric tube. 3. Klebsiella urinary tract infection. We will continue with Septra. 4. Constipation. Aware. 5. Morbid obesity. Aware. 6. Diabetes mellitus type 2. Because the patient is not eating and she was having recurrent episodes of hypoglycemia, we have stopped all medications except sliding scale insulin. cc: Brian Ann MD MTDD
[2016-11-17] MEDS: SENOKOT PO SCH (20:38)
[2016-11-17] MEDS: PRAVACHOL PO SCH (20:38)
[2016-11-18] MEDS: MORPHINE IV PRN ×4 (00:46→20:29)
[2016-11-18] MEDS: DUONEB (A & A) INH SCH ×6 (02:40→22:50)
[2016-11-18] MEDS: CLINIMIX E 4.25%-5% SOLUTION 1,000 ML IV SCH ×2 (06:30→15:50)
[2016-11-18] MEDS: HUMULIN R SUBQ SCH ×4 (07:00→20:27)
[2016-11-18] MEDS: BREO ELLIPTA 100/25 MCG INH INH SCH (07:15)
[2016-11-18] MEDS: MERREM 1 GM in NS 50 ML IV SCH ×2 (08:00→16:00)
[2016-11-18] MEDS: XANAX PO SCH ×2 (09:00→20:28)
[2016-11-18] MEDS: PREDNISONE PO SCH (09:00)
[2016-11-18] MEDS: LACTULOSE PO SCH ×2 (09:00→20:28)
[2016-11-18] MEDS: NEXIUM PO SCH (09:00)
[2016-11-18] MEDS: ANUSOL-HC CREAM PR SCH ×2 (09:00→20:27)
[2016-11-18] MEDS: HEPARIN SUBQ SCH ×2 (09:00→20:27)
[2016-11-18] MEDS: LASIX IV SCH ×3 (09:00→20:27)
[2016-11-18] MEDS: DULCOLAX PR SCH (09:00)
[2016-11-18] MEDS: MIRALAX PO SCH ×2 (09:00→20:27)
[2016-11-18] MEDS: CARDIZEM CD PO SCH (09:00)
[2016-11-18] MEDS: SEPTRA LIQUID PO SCH ×2 (09:00→20:27)
--- NOTE | 2016-11-18 14:18 | PROGRESS NOTE ---
DATE: 11/18/2016 SUBJECTIVE: Patient is sedated and intubated. Looks a little tachypneic today. No other acute issues as per nursing overnight. OBJECTIVE: Vital Signs: Temperature 96.9 degrees, heart rate 96, respiratory rate 16, blood pressure 124/63, O2 saturation 97% on mechanical ventilator. General Examination: This is a morbidly obese, chronically ill-looking and frail, 61-year-old female lying in bed, sedated and intubated. HEENT: Head is normocephalic, atraumatic. Anicteric sclerae and pale conjunctivae. Mucous membranes moist. Neck: Supple. No JVD noted. No carotid bruits. No lymphadenopathy. No thyromegaly. Cardiovascular: S1, S2 heard. Tachycardic. No murmurs, gallops, or rubs. Regular rate and rhythm. Respiratory: Mild coarse breath sounds in both bases similar in comparing with yesterday. Patient is intubated. The patient is not using any accessory muscles or having work of breathing. Abdomen: Soft. Bowel sounds present. No organomegaly. Extremities: No clubbing, no cyanosis and 2+ pitting edema still present in both lower extremities. Peripheral pulses present in both legs. Neurological: Patient is sedated and intubated. Not possible to perform any proper evaluation. LABORATORY DATA: White cell count 12.74, hemoglobin 8.1, hematocrit 26.8, platelet 142,000. The BMP is unremarkable and ABG shows pH 7.33 with pCO2 68, PO2 of 72. ASSESSMENT AND PLAN: 1. Acute on chronic respiratory failure on ventilator. The patient is still intubated. ABG shows still hypercapnia. The patient is 25-50% and it seems like she is a little bit tachypneic today. At this point, we are going to continue with the same management. Pulmonary is following this patient as well. Patient's family has been informed about the critical situation of her relative. 2. We will continue to monitor this patient closely. 3. Community-acquired pneumonia. As we mentioned yesterday, vancomycin and meropenem were given to this patient for 15 days so the antibiotics have been stopped and switched to Septra liquid. We are going to continue with the same management. Dr. Bro is supposed to follow this patient. 4. Klebsiella urinary tract infection. The patient is on Septra. 5. Constipation. Aware. 6. Morbid obesity. Aware. 7. Diabetes mellitus type 2, because of recurrent episodes of hypoglycemia all basal insulin has been stopped. She is only on sliding scale insulin. 8. Disposition. The patient, as we mentioned before, has been here for 14 days and has been intubated . We have explained to the family that it will be a extremely difficult extubation so our plans are to send her to LTAC next Sunday, if there is no issue with her over the weekend. We will continue monitoring this patient closely here in the intensive care unit. cc: Brian Ann MD
[2016-11-18] MEDS: PROTONIX IV SCH (14:45)
--- NOTE | 2016-11-18 15:47 | Diag Imaging Result Document ---
PROCEDURE NAME: CHEST-1 VIEW - 11/18/2016 ERECT AP PORTABLE CHEST DATED 11/18/2016 AT 0515 HOURS: FINDINGS: There is an endotracheal tube with its tip at the thoracic inlet and an NG tube which passes below the diaphragm. There is a PICC line on the right. There is alveolar opacity throughout much of the right lung and some of the left lower lobe. This appears slightly worse in the left lower lobe and the right apex than on 11/17/2016. IMPRESSION: Slightly worsened pulmonary edema and/or pneumonia.
[2016-11-18 16:32] LABS: ALLEN TEST YES; BE 7.4 mmoll (-3.0-3.0); BLOOD TYPE ARTERIAL; DRAW SITE R RADIAL; PO2(98.6) 72 mmHg (60-100); SAMPLE BLOOD; SRATE 8 BPM; TVOL 500 mL; pH(98.6) 7.33 (7.35-7.45)
[2016-11-18] MEDS: SPIRIVA INH SCH (16:57)
[2016-11-18 17:26] LABS: AGAP 14; BUN 42 mg/dL (8-22); CALCIUM 8.9 mg/dL (8.8-10.2); CHLORIDE 99 mmol/L (98-107); COSMO 303; POTASSIUM 3.7 mmol/L (3.5-5.1); SODIUM 144 mmol/L (136-145); TCO2 31 mmol/L (25-35)
[2016-11-18 17:40] LABS: BASO% 0.1 % (0.0-0.8); HEMATOCRIT 26.8 % (37.0-47.0); HEMOGLOBIN 8.1 g/dL (12.0-16.0); IMM GRAN# 0.07 X1000 (0.0-0.04); IMM GRAN% 0.5 % (0.0-0.5); LYMPH# 0.58 X1000 (1.2-3.4); LYMPH% 4.6 % (20.5-51.1); MANUAL DIFF NEEDED? YES; MCH 26.8 PG (27-31); MCHC 30.2 g/dL (33-37); MCV 88.7 FL (81-99); MONO# 0.23 X1000 (0.11-0.59); MONO% 1.8 % (1.7-9.3); MPV 11.4 FL (7.4-10.4); PLT 142 X1000 (130-400); RBC 3.02 XMIL (4.2-5.4)
[2016-11-18 18:28] LABS: MODALITY VENTILATOR; PCO2(98.6) 68 mmHg (35-45)
[2016-11-18 19:03] LABS: BANDS 8 % (0-1); LYMPHS 8 % (21-51); MONO 2 % (1-9); NRBC 2 % (0-0)
[2016-11-18] MEDS: PRAVACHOL PO SCH (20:27)
[2016-11-18] MEDS: SENOKOT PO SCH (20:27)
[2016-11-18] MEDS: ATIVAN IV PRN (20:29)
[2016-11-19] MEDS: MERREM 1 GM in NS 50 ML IV SCH ×2 (00:36→08:21)
[2016-11-19] MEDS: MORPHINE IV PRN ×3 (00:36→15:20)
[2016-11-19] MEDS: ATIVAN IV PRN ×2 (00:36→09:39)
[2016-11-19] MEDS: CLINIMIX E 4.25%-5% SOLUTION 1,000 ML IV SCH ×3 (02:29→17:13)
[2016-11-19] MEDS: DUONEB (A & A) INH SCH ×6 (03:21→22:48)
[2016-11-19 04:32] LABS: ALLEN TEST YES; BE 6.3 mmoll (-3.0-3.0); BLOOD TYPE ARTERIAL; DRAW SITE R RADIAL; METHB 2.1 % (0.0-1.5); O2(CT) 12.9 mL/dL (15.0-23.0); PO2(98.6) 72 mmHg (60-100); SAMPLE BLOOD; SAO2 95.8 % (95.0-100.0); SRATE 8 BPM; THB 9.9 g/dL (11.5-17.4); TVOL 500 mL; pH(98.6) 7.27 (7.35-7.45)
[2016-11-19 04:34] LABS: MODALITY VENTILATOR; PCO2(98.6) 76 mmHg (35-45)
[2016-11-19 05:16] LABS: BASO% 0.1 % (0.0-0.8); EOS# 0.01 X1000 (0.0-0.7); EOS% 0.1 % (0.0-10.0); HEMATOCRIT 26.2 % (37.0-47.0); HEMOGLOBIN 7.9 g/dL (12.0-16.0); IMM GRAN# 0.03 X1000 (0.0-0.04); IMM GRAN% 0.3 % (0.0-0.5); LYMPH# 0.47 X1000 (1.2-3.4); LYMPH% 5.4 % (20.5-51.1); MANUAL DIFF NEEDED? YES; MCH 26.6 PG (27-31); MCHC 30.2 g/dL (33-37); MCV 88.2 FL (81-99); MONO# 0.22 X1000 (0.11-0.59); MONO% 2.5 % (1.7-9.3); MPV 11.1 FL (7.4-10.4); NEUT% 91.6 % (42.2-75.2); PLT 133 X1000 (130-400); RBC 2.97 XMIL (4.2-5.4)
[2016-11-19 05:37] LABS: AGAP 12; BUN 63 mg/dL (8-22); CALCIUM 9.3 mg/dL (8.8-10.2); CHLORIDE 98 mmol/L (98-107); COSMO 298; POTASSIUM 4.1 mmol/L (3.5-5.1); SODIUM 139 mmol/L (136-145); TCO2 29 mmol/L (25-35)
[2016-11-19 05:55] LABS: BANDS 26 % (0-1); LYMPHS 2 % (21-51); MONO 4 % (1-9)
[2016-11-19] MEDS: HUMULIN R SUBQ SCH ×4 (06:19→20:51)
[2016-11-19] MEDS: BREO ELLIPTA 100/25 MCG INH INH SCH (08:15)
[2016-11-19] MEDS: SPIRIVA INH SCH (08:15)
[2016-11-19] MEDS: ANUSOL-HC CREAM PR SCH ×2 (08:21→20:51)
[2016-11-19] MEDS: XANAX PO SCH ×2 (08:21→20:42)
[2016-11-19] MEDS: PREDNISONE PO SCH (08:22)
[2016-11-19] MEDS: LACTULOSE PO SCH ×2 (08:22→20:40)
[2016-11-19] MEDS: LASIX IV SCH ×2 (08:22→20:50)
[2016-11-19] MEDS: HEPARIN SUBQ SCH ×2 (08:22→20:49)
[2016-11-19] MEDS: NEXIUM PO SCH (08:22)
[2016-11-19] MEDS: CARDIZEM CD PO SCH (08:22)
[2016-11-19] MEDS: DULCOLAX PR SCH (08:22)
[2016-11-19] MEDS: MIRALAX PO SCH ×2 (08:23→20:42)
--- NOTE | 2016-11-19 09:08 | Diag Imaging Result Document ---
PROCEDURE NAME: CHEST-1 VIEW - 11/19/2016 PORTABLE CHEST: Compared with 11/18/2016. FINDINGS: Endotracheal tube remains in place with its tip approximately 5 cm above the magan. Nasogastric tube remains and can be followed to the stomach. PICC line remains in place. Infiltrate on the right appears stable to mildly increased. There is stable mild prominence of markings at the left base. There is no substantial pleural effusion or pneumothorax identified. Heart size appears within normal limits. IMPRESSION: Stable to slightly increased infiltrate on the right.
[2016-11-19] MEDS: SEPTRA LIQUID PO SCH ×2 (10:03→20:49)
--- NOTE | 2016-11-19 11:28 | PROGRESS NOTE ---
DATE: 11/19/2016 SUBJECTIVE: The patient is sedated and intubated. He does not follow commands. He is a little bit tachypneic like yesterday. No other acute issues as per nursing staff overnight. OBJECTIVE: Vital Signs: Temperature 99 degrees, heart rate 86, respiratory rate 11, blood pressure 116/69, O2 saturation 96% on mechanical ventilator at FiO2 of 50%. Physical Examination: General: This is a morbidly obese, chronically ill-looking and frail, 61- year-old, female lying in bed, in no acute distress. HEENT: Head is normocephalic and atraumatic. Anicteric sclerae and pale conjunctivae. Mucous membranes dry. Neck: Supple. No JVD noted. No carotid bruits. No lymphadenopathy. No thyromegaly. Cardiovascular Examination: S1 and S2 heard. No murmurs, gallops, or rubs. Regular rate and rhythm. Respiratory Examination: Coarse breath sounds noted, still present in both bases. This patient is intubated. Patient is not using any accessory muscles or having work of breathing. Abdomen: Soft. Bowel sounds present. Extremities: No clubbing, no cyanosis. Edema of 2+ in both lower extremities, unchanged in comparing with previous days. Peripheral pulses present in both legs but faint. Neurological Examination: Patient is sedated and intubated. It is not possible to perform any neurologic evaluation. Pupils are equal, round, and reactive to light and accommodation. Laboratory Data: White cell count 8.7, hemoglobin 10.9, hematocrit 26.2, platelets 133,000. The ABG shows pH of 7.27, pCO2 of 76. BMP unremarkable except BUN of 63. ASSESSMENT/PLAN: 1. Acute on chronic respiratory failure, on ventilator. Patient continues to be intubated. FiO2 is 50% and if we try to decrease, the patient's oxygen saturation drops to 80s. At this time, we are going to continue with the same management. Pulmonary is following this patient as well. Arterial blood gases today showed respiratory acidosis. Considering that this patient has been on the ventilator for 3 days, the prognosis as we know is very poor and family has been informed about the prognosis. 2. Community-acquired pneumonia. Patient has been followed by Dr. Bro and so far, she has received 16 days of treatment with vancomycin and meropenem so Dr. Bro has decided to continue with Septra. We will continue with the same management. 3. Klebsiella urinary tract infection. Patient is on Septra as we mentioned before. 4. Constipation, aware. 5. Morbid obesity, aware. 6. Diabetes mellitus type 2. As we mentioned in previous notes, the patient has been having episodes of recurrent hypoglycemia so she is only on sliding scale insulin and basal insulin has been stopped. Currently, she is receiving Clinimix. 7. Disposition. As we mentioned before, this patient has end-stage chronic obstructive pulmonary disease and it was necessary to intubate her 3 days ago. I think this patient's prognosis is not good and the process of extubation, if possible, will be very low. Plan is to send her to long-term acute care tomorrow morning. cc: Brian Ann MD
[2016-11-19] MEDS: SODIUM CHLORIDE 0.9% INJ SCH (14:27)
[2016-11-19] MEDS: PROTONIX IV SCH (14:27)
[2016-11-19] MEDS: PRAVACHOL PO SCH (20:42)
[2016-11-19] MEDS: SENOKOT PO SCH (20:42)
[2016-11-20] MEDS: ATIVAN IV PRN ×3 (01:03→12:49)
[2016-11-20] MEDS: MORPHINE IV PRN ×5 (01:03→14:49)
[2016-11-20] MEDS ORDERED: CALMOSEPTINE OINTMENT TOP PRN (01:13)
[2016-11-20] MEDS: DUONEB (A & A) INH SCH ×6 (02:44→22:56)
[2016-11-20 04:31] LABS: ALLEN TEST YES; BE 9.2 mmoll (-3.0-3.0); BLOOD TYPE ARTERIAL; DRAW SITE R RADIAL; PO2(98.6) 71 mmHg (60-100); SAMPLE BLOOD; SRATE 10 BPM; TVOL 500 mL; pH(98.6) 7.34 (7.35-7.45)
[2016-11-20 04:33] LABS: MODALITY VENTILATOR; PCO2(98.6) 70 mmHg (35-45)
[2016-11-20 04:45] LABS: BASO% 0.1 % (0.0-0.8); EOS# 0.01 X1000 (0.0-0.7); EOS% 0.1 % (0.0-10.0); HEMATOCRIT 24.4 % (37.0-47.0); HEMOGLOBIN 7.5 g/dL (12.0-16.0); IMM GRAN# 0.07 X1000 (0.0-0.04); IMM GRAN% 0.9 % (0.0-0.5); LYMPH# 0.54 X1000 (1.2-3.4); LYMPH% 6.8 % (20.5-51.1); MANUAL DIFF NEEDED? YES; MCH 26.6 PG (27-31); MCHC 30.7 g/dL (33-37); MCV 86.5 FL (81-99); MONO# 0.21 X1000 (0.11-0.59); MONO% 2.6 % (1.7-9.3); MPV 10.6 FL (7.4-10.4); NEUT% 89.5 % (42.2-75.2); PLT 134 X1000 (130-400); RBC 2.82 XMIL (4.2-5.4)
[2016-11-20 05:00] LABS: LYMPHS 6 % (21-51); MONO 2 % (1-9)
[2016-11-20 05:01] LABS: AGAP 9; BUN 68 mg/dL (8-22); CALCIUM 9.3 mg/dL (8.8-10.2); CHLORIDE 94 mmol/L (98-107); COSMO 296; POTASSIUM 5.1 mmol/L (3.5-5.1); SODIUM 136 mmol/L (136-145); TCO2 33 mmol/L (25-35)
[2016-11-20] MEDS: HUMULIN R SUBQ SCH ×4 (06:09→21:13)
[2016-11-20] MEDS: SPIRIVA INH SCH (07:57)
[2016-11-20] MEDS: BREO ELLIPTA 100/25 MCG INH INH SCH (07:57)
--- NOTE | 2016-11-20 08:08 | Diag Imaging Result Document ---
PROCEDURE NAME: CHEST-1 VIEW - 11/20/2016 AP PORTABLE CHEST, 11/20/2016 AT 0515 HOURS: FINDINGS: There is an endotracheal tube with its tip at the thoracic inlet and an NG tube which passes below the diaphragm. There is a PICC line on the right which appears to pass into the right atrium. There is pleural fluid on the right which is worse than on 11/19/2016. There continues to be volume loss and opacification on the right. IMPRESSION: Right pleural effusion and atelectasis with possible pneumonia.
[2016-11-20] MEDS: HEPARIN SUBQ SCH ×2 (09:02→20:47)
[2016-11-20] MEDS: LASIX IV SCH ×2 (09:02→20:47)
[2016-11-20] MEDS: CARDIZEM CD PO SCH (09:02)
[2016-11-20] MEDS: ANUSOL-HC CREAM PR SCH ×2 (09:03→20:48)
[2016-11-20] MEDS: PREDNISONE PO SCH (09:03)
[2016-11-20] MEDS: XANAX PO SCH ×2 (09:03→20:48)
[2016-11-20] MEDS: LACTULOSE PO SCH ×2 (09:03→20:48)
[2016-11-20] MEDS: DULCOLAX PR SCH (09:03)
[2016-11-20] MEDS: NEXIUM PO SCH (09:03)
[2016-11-20] MEDS: SEPTRA LIQUID PO SCH ×2 (09:03→21:44)
[2016-11-20] MEDS: MIRALAX PO SCH ×2 (09:03→20:47)
[2016-11-20] MEDS: CLINIMIX E 4.25%-5% SOLUTION 1,000 ML IV SCH (12:49)
--- NOTE | 2016-11-20 14:44 | PROGRESS NOTE ---
DATE: 11/20/2016 SUBJECTIVE: Patient is intubated, does not follow commands. A little bit tachypneic yesterday and today. OBJECTIVE: Vital Signs: Temperature 98.8 degrees, heart rate 119, respiratory rate 21, blood pressure 114/60, O2 saturation 91% on 50% FiO2 mechanical ventilator. General Examination: This is a morbidly obese chronically ill-looking and frail 61-year-old female lying in bed in no acute distress. HEENT: Head is normocephalic, atraumatic. Anicteric sclerae and pale conjunctivae. Mucous membranes dry. Neck: Supple. No JVD noted. No carotid bruits. No lymphadenopathy. No thyromegaly. Cardiovascular: S1, S2 heard. No murmurs, gallops, rubs. Regular rate and rhythm. Respiratory: Decreased breath sounds globally with coarse breath sounds in both bases still present from few days. Patient is intubated. Patient is not using any accessory muscles or having work of breathing. Abdomen: Soft. Bowel sounds present. Extremities: Markedly edema on both upper extremities with some superficial erythema with edema 2+ in both lower extremities as well unchanged in comparing with previous days. Peripheral pulses in both legs present but faint. Neurological: Patient is sedated and intubated. Pupils equal, round, reactive to light and accommodation. LABORATORY DATA: White cell count 7.96, hemoglobin 7.5, hematocrit 24.4, platelets 134,000, ABG shows pH 7.34, pCO2 70, PO2 71. BMP completely unremarkable. ASSESSMENT AND PLAN: 1. Acute on chronic respiratory failure on ventilator. The patient continues to be intubated requiring FiO2 at minimum 50%, FiO2 to maintain O2 saturation above 90%. At this point we think that this patient had end-stage COPD that will take a while to get extubated. Long-term acute care has been consulted and apparently we are waiting for an answer from long-term acute care staff to transfer this patient over there. 2. Community-acquired pneumonia. Patient has been followed by Dr. Bro and during all her hospitalization she has received 16 days of vancomycin, meropenem so Dr. Bro has decided to switch to Septra. At this point we are going to continue with the same management. 3. Klebsiella urinary tract infection. Patient is on vancomycin as well. 4. Constipation aware. 5. Diabetes mellitus type 2. Patient is only on sliding scale insulin because in previous day she was having episodes recurring hypoglycemia. 6. Nutritional status. Patient is receiving Clinimix. Considering this patient may need to be intubated for awhile probably will need to start TPN. 7. Disposition. We are waiting for an answer from LTAC to see this patient is going to be transferred over there. cc: Brian Ann MD
[2016-11-20] MEDS: SODIUM CHLORIDE 0.9% INJ SCH (14:49)
[2016-11-20] MEDS: PROTONIX IV SCH (14:49)
[2016-11-20] MEDS: PRAVACHOL PO SCH (20:47)
[2016-11-20] MEDS: SENOKOT PO SCH (20:48)
[2016-11-21] MEDS: DUONEB (A & A) INH SCH ×6 (02:42→23:15)
[2016-11-21] MEDS: ATIVAN IV PRN ×5 (03:58→23:44)
[2016-11-21] MEDS: MORPHINE IV PRN ×4 (03:58→22:28)
[2016-11-21 04:33] LABS: ALLEN TEST YES; BE 14.9 mmoll (-3.0-3.0); BLOOD TYPE ARTERIAL; DRAW SITE R RADIAL; METHB 2.1 % (0.0-1.5); O2(CT) 10.5 mL/dL (15.0-23.0); PCO2(98.6) 48 mmHg (35-45); PO2(98.6) 158 mmHg (60-100); SAMPLE BLOOD; SAO2 99.7 % (95.0-100.0); SRATE 10 BPM; THB 7.5 g/dL (11.5-17.4); TVOL 500 mL; pH(98.6) 7.52 (7.35-7.45)
[2016-11-21 04:34] LABS: MODALITY VENTILATOR
[2016-11-21] MEDS: HUMULIN R SUBQ SCH ×4 (06:02→21:35)
[2016-11-21 07:29] LABS: BASO% 0.3 % (0.0-0.8); EOS# 0.06 X1000 (0.0-0.7); EOS% 0.9 % (0.0-10.0); HEMATOCRIT 23.3 % (37.0-47.0); HEMOGLOBIN 7.2 g/dL (12.0-16.0); IMM GRAN# 0.11 X1000 (0.0-0.04); IMM GRAN% 1.6 % (0.0-0.5); LYMPH# 0.57 X1000 (1.2-3.4); LYMPH% 8.4 % (20.5-51.1); MANUAL DIFF NEEDED? YES; MCH 26.9 PG (27-31); MCHC 30.9 g/dL (33-37); MCV 86.9 FL (81-99); MPV 9.7 FL (7.4-10.4); NEUT% 85.8 % (42.2-75.2); PLT 128 X1000 (130-400); RBC 2.68 XMIL (4.2-5.4)
--- NOTE | 2016-11-21 07:36 | Diag Imaging Result Document ---
PROCEDURE NAME: CHEST-1 VIEW - 11/21/2016 SINGLE FRONTAL RADIOGRAPH OF THE CHEST: COMPARISON: 11/20/2016. FINDINGS: ET tube is in stable position. NG tube projects below the diaphragm and out of the field of view. Right PICC line is stable. Small right pleural effusion with adjacent atelectasis and/or infiltrate at the right lung base has, perhaps, marginally improved. No new consolidations are appreciated. Cardiac silhouette is stable. IMPRESSION: Suggestion of marginal improvement on the right as described.
[2016-11-21] MEDS: BREO ELLIPTA 100/25 MCG INH INH SCH (08:05)
[2016-11-21] MEDS: SPIRIVA INH SCH (08:05)
--- NOTE | 2016-11-21 08:09 | PROGRESS NOTE ---
DATE: 11/21/2016 PRESENT ILLNESS: The patient remains in the intensive care unit. She appears to have a right lower lobe effusion, atelectasis and pneumonia. MEDICATIONS: The patient has been on trimethoprim sulfamethoxazole now for 4 days. PHYSICAL EXAMINATION: Vital Signs: Temperature is 97.6, pulse 121, respirations 21, blood pressure 120/66. General: This is an ill-appearing, middle-aged female. She is intubated and sedated. She is in no acute distress. Lungs: Clear to auscultation. Cardiovascular: Heart rate is regular and rapid. Abdomen: Soft and nontender. LABORATORY AND X-RAY: Chest x-ray shows a right lower lobe pleural effusion, atelectasis and pneumonia. The patient's creatinine is 0.8. GFR is greater than 60. Arterial blood gases show a pH of 7.52, a PO2 of 158 and a pCO2 of 48. The patient's CBC shows a white count of 7960, hemoglobin 7.5 and platelet count 134,000. ASSESSMENT AND PLAN: Patient has pneumonia. My plan now will be to continue her on trimethoprim sulfamethoxazole. COMORBIDITIES: Include diabetes mellitus, COPD, obstructive sleep apnea and obesity. cc: David Bro MD
[2016-11-21 08:12] LABS: BANDS 2 % (0-1); LYMPHS 4 % (21-51)
[2016-11-21 08:14] LABS: AGAP 8; BUN 59 mg/dL (8-22); CALCIUM 9.5 mg/dL (8.8-10.2); CHLORIDE 92 mmol/L (98-107); COSMO 291; HYPOCHROM 1+; LARGE PLATELETS OCCASIONAL; POTASSIUM 5.6 mmol/L (3.5-5.1); SODIUM 136 mmol/L (136-145); TCO2 36 mmol/L (25-35)
[2016-11-21] MEDS: XANAX PO SCH ×2 (08:32→20:42)
[2016-11-21] MEDS: CARDIZEM CD PO SCH (08:32)
[2016-11-21] MEDS: LACTULOSE PO SCH ×2 (08:32→20:43)
[2016-11-21] MEDS: HEPARIN SUBQ SCH ×2 (08:32→20:43)
[2016-11-21] MEDS: MIRALAX PO SCH ×2 (08:32→20:43)
[2016-11-21] MEDS: LASIX IV SCH ×2 (08:32→20:43)
[2016-11-21] MEDS: PREDNISONE PO SCH (08:33)
[2016-11-21] MEDS: DULCOLAX PR SCH (08:33)
[2016-11-21] MEDS: ANUSOL-HC CREAM PR SCH ×2 (08:33→21:02)
[2016-11-21] MEDS: NEXIUM PO SCH (08:33)
[2016-11-21] MEDS: CLINIMIX E 4.25%-5% SOLUTION 1,000 ML IV SCH (08:33)
[2016-11-21] MEDS: SEPTRA LIQUID PO SCH ×2 (08:34→21:07)
--- NOTE | 2016-11-21 10:31 | PROGRESS NOTE ---
DATE: 11/21/2016 SUBJECTIVE: This patient is still intubated. She is not following commands. She is getting NG tube feedings and also Clinimix. There is a possibility of sending this patient to an LTAC but probably she will need also a tracheostomy and probably also a PEG tube to be able to go there. I will try to talk to the family today. OBJECTIVE: Vital Signs: Temperature 97.5 degrees, pulse 111, respiratory rate 14, blood pressure 102/74, oxygen saturation 98 on mechanical ventilation. HEENT: Head normocephalic. No trauma. PERRLA. Neck: Supple. No JVD. Chest: Decreased breath sounds at the bases with mild rhonchi bilaterally. No wheezing. Prolonged expiratory phase. Cardiovascular: RRR. No murmurs. Tachycardic. Abdomen: Soft. There are some bruises at the level of the lower abdomen, likely related to treatment with Lovenox. No masses. Positive bowel sounds. Extremities: There is 3+ lower extremity edema. No clubbing. No cyanosis. Neurological Examination: The patient is on mechanical ventilation and she is sleepy. She localized with pain stimulation. She is not following commands. Laboratory: WBC 6.7, hemoglobin 7.2, hematocrit 23.3, platelets 128,000. Sodium 136, potassium 5.6, chloride 92, bicarbonate 36, BUN 59, creatinine 0.7, glucose 139, calcium 9.5. ASSESSMENT AND PLAN: 1. Acute on chronic respiratory failure on mechanical ventilation, likely hypercapnic and hypoxemic. This patient continues to be intubated. Probably, this patient will need a tracheostomy to be able to be transferred to long-term acute care. I will talk to the family today to see if they agree with this. Also, probably she will need a percutaneous endoscopic gastrostomy tube. 2. Community-acquired pneumonia. Patient has been follow by Dr. Bro and she already received broad-spectrum antibiotics. For now, she is on trimethoprim and sulfamethoxazole, and Infectious Disease Department is following this patient. We will continue to monitor. 3. End-stage chronic obstructive pulmonary disease. This patient has been evaluated by Pulmonary Department. For now, we will continue with the same management. 4. Klebsiella urinary tract infection. Continue with the same management. This patient has been already treated for this. 5. Hyperkalemia. I want to continue to monitor the potassium for 1 more day. She is getting furosemide so the potassium probably will go down. 6. Type 2 diabetes. Continue with sliding scale insulin. 7. Nutritional status. This patient is getting Clinimix and also she is getting feedings through the nasogastric tube. We may consider placing a percutaneous endoscopic gastrostomy tube if the family agrees with this or probably total parenteral nutrition. 8. Disposition. We are waiting for an answer from long-term acute care to see if this patient is going to be transferred over there. Apparently, they already evaluated the situation and they are requiring a tracheostomy. Probably, this patient will need also before admission a percutaneous endoscopic gastrostomy tube. I will talk to the family. CRITICAL CARE TIME: 35 minutes. cc: Osman Jeffries MD
[2016-11-21] MEDS: SODIUM CHLORIDE 0.9% INJ SCH (15:43)
[2016-11-21] MEDS: PROTONIX IV SCH (15:43)
[2016-11-21] MEDS: PRAVACHOL PO SCH (20:43)
[2016-11-21] MEDS: SENOKOT PO SCH (20:43)
[2016-11-21] MEDS: TYLENOL PO PRN (23:44)
[2016-11-22] MEDS: DUONEB (A & A) INH SCH ×6 (03:46→22:56)
[2016-11-22 04:32] LABS: ALLEN TEST YES; BLOOD TYPE ARTERIAL; DRAW SITE R RADIAL; PO2(98.6) 73 mmHg (60-100); SAMPLE BLOOD; SRATE 10 BPM; TVOL 500 mL; pH(98.6) 7.44 (7.35-7.45)
[2016-11-22 04:34] LABS: MODALITY VENTILATOR; PCO2(98.6) 64 mmHg (35-45)
[2016-11-22] MEDS: MORPHINE IV PRN (04:50)
[2016-11-22] MEDS: ATIVAN IV PRN (04:50)
[2016-11-22 05:33] LABS: BASO% 0.7 % (0.0-0.8); EOS# 0.05 X1000 (0.0-0.7); EOS% 0.7 % (0.0-10.0); HEMATOCRIT 25.4 % (37.0-47.0); HEMOGLOBIN 7.9 g/dL (12.0-16.0); IMM GRAN% 4.2 % (0.0-0.5); LYMPH# 0.81 X1000 (1.2-3.4); LYMPH% 11.3 % (20.5-51.1); MANUAL DIFF NEEDED? YES; MCHC 31.1 g/dL (33-37); MCV 86.7 FL (81-99); MONO# 0.29 X1000 (0.11-0.59); MPV 10.9 FL (7.4-10.4); NEUT% 79.1 % (42.2-75.2); PLT 146 X1000 (130-400); RBC 2.93 XMIL (4.2-5.4)
[2016-11-22] MEDS: CLINIMIX E 4.25%-5% SOLUTION 1,000 ML IV SCH ×2 (06:24→17:52)
[2016-11-22] MEDS: HUMULIN R SUBQ SCH ×4 (06:24→21:13)
[2016-11-22 06:31] LABS: AGAP 8; BUN 59 mg/dL (8-22); CALCIUM 9.6 mg/dL (8.8-10.2); CHLORIDE 90 mmol/L (98-107); COSMO 287; POTASSIUM 5.9 mmol/L (3.5-5.1); SODIUM 134 mmol/L (136-145); TCO2 36 mmol/L (25-35)
[2016-11-22 07:17] LABS: BANDS 2 % (0-1); LYMPHS 12 % (21-51); MONO 6 % (1-9)
[2016-11-22 07:18] LABS: HYPOCHROM 1+; POLYCHROM OCCASIONAL
--- NOTE | 2016-11-22 07:44 | Diag Imaging Result Document ---
PROCEDURE NAME: CHEST-1 VIEW - 11/22/2016 SINGLE FRONTAL RADIOGRAPH OF THE CHEST: COMPARISON: 11/21/2016. FINDINGS: ET tube is stable. Right PICC line is stable. NG tube projects below the diaphragm and is assumed to be in the stomach. Small right pleural effusion and right basilar infiltrate appear to be stable. No new consolidations are identified. Cardiac silhouette is stable. IMPRESSION: Stable chest.
[2016-11-22] MEDS ORDERED: VELTASSA PO ONE (08:24)
--- NOTE | 2016-11-22 08:31 | PROGRESS NOTE ---
DATE: 11/22/2016 PRESENT ILLNESS: The patient remains intubated and sedated. She is in the intensive care unit. We are treating her for a right lower lobe pneumonia with effusion. MEDICATIONS: This is day 5 of treating the patient with trimethoprim sulfamethoxazole. PHYSICAL EXAMINATION: Vital Signs: Temperature is 98.3 degrees, pulse 95, respirations 13, blood pressure 113/72. Generally: This is an ill-appearing, middle-aged female. She is intubated and sedated. Head, Eyes, Ears, Nose, and Throat: The patient has an orotracheal tube in place. No drainage noted from the nose or ears. Extremities: Patient has a PICC in the right arm. The site is not erythematous or purulent. Lungs: Have distant breath sounds. Clear to auscultation. Cardiovascular: Heart tones are distant. The heart rate is regular and rapid. Abdomen: Soft and nontender. There are ecchymoses on the abdomen. Neurologic: As mentioned above, the patient is sedated. She did not respond to verbal stimuli. She did not move her extremities during my exam. LAB AND X-RAY: Chest x-ray shows right lower lobe infiltrate and effusion. The patient's CBC shows a white count of 7200, hemoglobin 7.9, and platelet count 146,000. ASSESSMENT AND PLAN: The patient has pneumonia with an effusion. I plan to continue her trimethoprim sulfamethoxazole for now. COMORBIDITIES: Include diabetes mellitus, COPD, obstructive sleep apnea, and obesity. cc: David Bro MD
[2016-11-22] MEDS: SEPTRA LIQUID PO SCH ×2 (09:29→21:31)
[2016-11-22] MEDS: LACTULOSE PO SCH ×2 (09:29→21:07)
[2016-11-22] MEDS: ANUSOL-HC CREAM PR SCH ×2 (09:30→21:06)
[2016-11-22] MEDS: LASIX IV SCH ×2 (09:30→20:47)
[2016-11-22] MEDS: HEPARIN SUBQ SCH ×2 (09:31→21:07)
[2016-11-22] MEDS: PREDNISONE PO SCH (09:31)
[2016-11-22] MEDS: MIRALAX PO SCH ×2 (09:31→21:07)
[2016-11-22] MEDS: XANAX PO SCH (09:31)
[2016-11-22] MEDS: DULCOLAX PR SCH (09:31)
[2016-11-22] MEDS: NEXIUM PO SCH (10:11)
[2016-11-22] MEDS: CARDIZEM CD PO SCH (10:11)
[2016-11-22] MEDS: BREO ELLIPTA 100/25 MCG INH INH SCH (11:29)
[2016-11-22] MEDS: SPIRIVA INH SCH (11:30)
[2016-11-22] MEDS ORDERED: ROMAZICON IV ONE (12:12)
[2016-11-22 12:31] LABS: ALLEN TEST YES; BE 17.8 mmoll (-3.0-3.0); BLOOD TYPE ARTERIAL; DRAW SITE R RADIAL; METHB 1.9 % (0.0-1.5); O2(CT) 11.6 mL/dL (15.0-23.0); PO2(98.6) 64 mmHg (60-100); SAMPLE BLOOD; SAO2 95.5 % (95.0-100.0); THB 8.9 g/dL (11.5-17.4); pH(98.6) 7.43 (7.35-7.45)
[2016-11-22 12:32] LABS: MODALITY VENTILATOR; PCO2(98.6) 67 mmHg (35-45)
--- NOTE | 2016-11-22 12:32 | PROGRESS NOTE ---
DATE: 11/22/2016 SUBJECTIVE: This patient is still intubated. She is not following commands. She is getting NG tube feedings and also Clinimix. Yesterday, I had a conversation with the son and, also today, he had a meeting with the Palliative Care Team. After these 2 meetings, he decided to honor her wishes. He placed this patient DNR LEVEL 2. He does not want CPR or medications to bring her blood pressure up in case of hypotension. No invasive procedures or cardioversion. After 2 weeks of mechanical ventilation, if this patient is not getting better, probably he will extubate her family member. OBJECTIVE: Vital Signs: Temperature 98.3 degrees, pulse 115, respiratory rate 19, blood pressure 125/83, oxygen saturation 92% on mechanical ventilation. HEENT: Head normocephalic. No trauma. PERRLA. Neck supple. No JVD. No masses. Central trachea. Chest: Decreased breath sounds at the bases with mild rhonchi bilaterally. No wheezing. Prolonged expiatory phase. Cardiovascular RRR. No murmurs. Tachycardic. Abdomen soft. There are some bruises at the level of the lower abdomen likely related to treatment with Lovenox. No masses. Positive bowel sounds. Extremities: 2+ lower extremity edema. No clubbing. No cyanosis. Neurologic: The patient is on mechanical ventilation. She is sleepy. She localized pain with stimulation. She is not following commands. LABORATORY: WBC 7.2, hemoglobin 7.9, hematocrit 25.4, platelets 146,000. Sodium 134, potassium 5.9, chloride 90, bicarbonate 36. BUN 59, creatinine 0.8, glucose 147. Calcium 9.6. ASSESSMENT AND PLAN: 1. [id number] respiratory failure on mechanical ventilation, hypercapnic and hypoxemic. This patient continues to be intubated, and she will be DNR LEVEL 2 starting today. Her son made that decision. 2. Community-acquired pneumonia. We will continue with the same management. We have an x-ray today that showed a small right pleural effusion and right basilar infiltrate that appeared to be stable. 3. End-stage chronic obstructive pulmonary disease. This patient has been evaluated by the Pulmonary Department. For now, we will continue with the same management. 4. Klebsiella urinary tract infection. Continue with the same management. The patient has been already treated for this. 5. Hyperkalemia. Today, the potassium is elevated. I will use 1 dose of Veltassa 16.8 mg x1, and I will monitor. 6. Type 2 diabetes. Continue with sliding scale insulin. 7. Nutritional status. This patient is getting Clinimix and, also, she has been feeding through an NG tube. We are going to continue with the same management for now. CRITICAL CARE TIME: 35 minutes. cc: Osman Jeffries MD
[2016-11-22] MEDS ORDERED: HALDOL ONE (12:51)
--- NOTE | 2016-11-22 13:22 | PALLIATIVE CARE PROGRESS NOTE ---
DATE: 11/22/2016 SUBJECTIVE: Ms. Mendoza remains intubated. She does not follow commands. Her son is at the bedside. We discussed Ms. Mendoza's goals of care. He has decided to make her a DNR level 2. He does not want CPR or defibrillation. He does not want any medications to increase her blood pressure or stimulate her heart. As per Ms. Mendoza's advanced directive she has asked to be left on mechanical ventilation for 2 weeks and if she is not showing any improvement then she would want to be compassionately extubated. The son would like to honor that wish. He does not want any long-term aggressive measures done. He does not want a trach or PEG. OBJECTIVE: General: This is a 61-year-old female, who is requiring mechanical ventilation. She does not appear to be in any acute distress. HEENT: Atraumatic, normocephalic. Neck: Supple. Cardiovascular: Increased rate. Regular rhythm. Pulmonary: Lung sounds diminished with rhonchi auscultated bilaterally. Abdomen: Soft. Bowel sounds are active. Extremities: Pulses are palpable. She does have 2+ lower extremity edema. Skin: Warm and dry. ASSESSMENT AND PLAN: As previously mentioned, I met with the son to discuss Ms. Mendoza's goals of care. A DNR level 2 order will be placed. Today is day 6 on mechanical ventilation. Per Ms. Mendoza's advanced directive she would like to be on mechanical ventilation for 2 weeks and if no improvement is shown then she would like to be compassionately extubated. The son is agreeable to that. The palliative care team will continue to follow. Dictated by NELLY Soares for Chito Sánchez MD cc: NELLY Soares MD [facility]
[2016-11-22 15:05] LABS: ALLEN TEST YES; BE 17.6 mmoll (-3.0-3.0); BLOOD TYPE ARTERIAL; DRAW SITE L RADIAL; METHB 1.9 % (0.0-1.5); O2(CT) 11.9 mL/dL (15.0-23.0); PO2(98.6) 92 mmHg (60-100); SAMPLE BLOOD; SAO2 98.3 % (95.0-100.0); THB 8.8 g/dL (11.5-17.4); pH(98.6) 7.44 (7.35-7.45)
[2016-11-22 15:08] LABS: MODALITY VENTIMASK; PCO2(98.6) 65 mmHg (35-45)
[2016-11-22] MEDS: PROTONIX IV SCH (15:32)
[2016-11-22] MEDS: PRAVACHOL PO SCH (21:08)
[2016-11-22] MEDS: SENOKOT PO SCH (21:08)
[2016-11-23] MEDS: HALDOL IV PRN ×2 (00:32→23:44)
[2016-11-23] MEDS: DUONEB (A & A) INH SCH ×6 (03:15→22:25)
[2016-11-23 04:02] LABS: ALLEN TEST YES; BLOOD TYPE ARTERIAL; DRAW SITE R RADIAL; METHB 1.7 % (0.0-1.5); O2(CT) 11.6 mL/dL (15.0-23.0); PO2(98.6) 112 mmHg (60-100); SAMPLE BLOOD; SAO2 99.9 % (95.0-100.0); THB 8.4 g/dL (11.5-17.4); pH(98.6) 7.48 (7.35-7.45)
[2016-11-23 04:03] LABS: MODALITY BI PAP
[2016-11-23 04:04] LABS: PCO2(98.6) 60 mmHg (35-45)
[2016-11-23 05:15] LABS: BASO% 0.9 % (0.0-0.8); EOS# 0.03 X1000 (0.0-0.7); EOS% 0.4 % (0.0-10.0); HEMATOCRIT 26.7 % (37.0-47.0); HEMOGLOBIN 8.2 g/dL (12.0-16.0); IMM GRAN# 0.21 X1000 (0.0-0.04); IMM GRAN% 2.5 % (0.0-0.5); LYMPH% 15.2 % (20.5-51.1); MANUAL DIFF NEEDED? YES; MCH 26.7 PG (27-31); MCHC 30.7 g/dL (33-37); MONO# 0.44 X1000 (0.11-0.59); MONO% 5.1 % (1.7-9.3); MPV 11.4 FL (7.4-10.4); NEUT% 75.9 % (42.2-75.2); PLT 166 X1000 (130-400); RBC 3.07 XMIL (4.2-5.4)
[2016-11-23 05:40] LABS: LYMPHS 16 % (21-51); MONO 2 % (1-9); NRBC 2 % (0-0)
[2016-11-23 05:42] LABS: AGAP 10; BUN 62 mg/dL (8-22); CHLORIDE 90 mmol/L (98-107); COSMO 293; POTASSIUM 5.7 mmol/L (3.5-5.1); SODIUM 137 mmol/L (136-145); TCO2 37 mmol/L (25-35)
[2016-11-23] MEDS: CLINIMIX E 4.25%-5% SOLUTION 1,000 ML IV SCH (05:57)
[2016-11-23] MEDS: HUMULIN R SUBQ SCH ×4 (06:53→21:20)
--- NOTE | 2016-11-23 07:27 | Diag Imaging Result Document ---
PROCEDURE NAME: CHEST-1 VIEW - 11/23/2016 PORTABLE CHEST X-RAY: COMPARISON: 11/22/2016. FINDINGS: The endotracheal tube is no longer present. Stable nasogastric tube and right PICC line in good position. There is continued improvement of the infiltrate at the right lung base. Stable hazy atelectasis or infiltrate at the left lung base. Stable cardiomegaly. IMPRESSION: Slight improvement from prior. Recent extubation. MTDD
[2016-11-23] MEDS: SPIRIVA INH SCH (08:13)
[2016-11-23] MEDS: BREO ELLIPTA 100/25 MCG INH INH SCH (08:14)
[2016-11-23] MEDS: CARDIZEM CD PO SCH (08:19)
[2016-11-23] MEDS: PREDNISONE PO SCH (08:19)
[2016-11-23] MEDS: TYLENOL PO PRN (08:19)
[2016-11-23] MEDS: DULCOLAX PR SCH (08:20)
[2016-11-23] MEDS: SEPTRA LIQUID PO SCH ×2 (08:20→21:22)
[2016-11-23] MEDS: MIRALAX PO SCH ×2 (08:20→21:23)
[2016-11-23] MEDS: ANUSOL-HC CREAM PR SCH ×2 (08:20→21:21)
[2016-11-23] MEDS: LACTULOSE PO SCH ×2 (08:20→21:21)
[2016-11-23] MEDS: NEXIUM PO SCH (08:20)
[2016-11-23] MEDS: HEPARIN SUBQ SCH ×2 (08:20→21:22)
[2016-11-23] MEDS: LASIX IV SCH ×2 (08:20→20:21)
[2016-11-23] MEDS: VITAMIN D PO SCH (08:21)
--- NOTE | 2016-11-23 08:58 | PROGRESS NOTE ---
DATE: 11/23/2016 PRESENT ILLNESS: The patient is being treated for pneumonia, most prominent in the right lower lobe and possibly some in the left lower lobe also. MEDICATIONS: The patient is on her 6th day of treatment with trimethoprim sulfamethoxazole. PHYSICAL EXAM: Vital Signs: Temperature is 99.9, pulse 126, respirations 35, blood pressure 138/54. Generally: This is an ill-appearing middle-aged female. She seems to be breathing quite rapidly and with almost agonal-like breaths. She extubated herself last night and now she is on a BiPAP mask. Lungs: A few rales were heard on the right side. Cardiovascular: Heart rate is regular and rapid. Abdomen: Soft and nontender. LAB AND X-RAY: Chest x-ray shows improvement in the right lower lobe infiltrate. The left lower lobe infiltrate is stable. Patient's blood gases show a pH of 7.48, pO2 of 112, pCO2 of 60. Creatinine 0.8. GFR is greater than 60. CBC shows a white count of 8550. Hemoglobin 8.2 and platelet count 166,000. ASSESSMENT AND PLAN: The patient has pneumonia with effusion. For now, I plan to continue trimethoprim sulfamethoxazole. The patient appears to be having almost agonal-like breathing since she extubated herself. She is on a BiPAP mask and she may require re-intubation. COMORBIDITIES: Include diabetes mellitus, COPD, obstructive sleep apnea, and obesity. cc: David Bro MD
[2016-11-23] MEDS ORDERED: VELTASSA PO ONE (09:13)
--- NOTE | 2016-11-23 13:32 | PROGRESS NOTE ---
DATE: 11/23/2016 SUBJECTIVE: This patient is self extubated. She is still lethargic and not following commands. I had a conversation with the Pulmonary Department and we are going to try to keep this patient on the BiPAP machine unless she is required to be intubated again and we will try to get a new authorization for this from the her son. This patient is DNR level 2. OBJECTIVE: Vital Signs: Temperature 99 degrees, pulse 120, respiratory rate 23, blood pressure 127/53, oxygen saturation 95% on BiPAP 40% oxygen flow. HEENT: Head normocephalic. No trauma. PERRLA. Neck: Supple. No JVD. No masses. Central trachea. Chest: Decreased breath sounds at the bases with rhonchi bilaterally. No wheezing. Prolonged expiratory phase. Cardiovascular: RRR. No murmurs. Tachycardic. Abdomen: Soft. There are some bruises at the level of the lower abdomen likely related to treatment with Lovenox. No masses. Positive bowel sounds. Extremities: 2+ lower extremity edema. No clubbing. No cyanosis. Neurological: The patient is on BiPAP. She is sleepy/mild lethargic but she is not following commands. She localized with pain stimulation. LABORATORY: WBC 8.5, hemoglobin 8.2, hematocrit 26.7, platelets 166,000. Sodium 137, potassium 5.7, chloride 90, bicarbonate 37, BUN 62, creatinine 0.8. Glucose 121, calcium 10. ASSESSMENT AND PLAN: 1. Acute on chronic respiratory failure. This patient was on mechanical ventilation but she self extubated. At this moment she is on a BiPAP machine and Pulmonary Department is following this patient closely. In the case that we need to reintubate this patient we will try to get a previous authorization from the son. 2. Community-acquired pneumonia: Continue with the same management. 3. End-stage chronic obstructive pulmonary disease. This patient has been evaluated by Pulmonary Department. For now, we will continue with the same management. 4. Klebsiella urinary tract infection. Continue with the same treatment. Patient has been already treated for this. 5. Hyperkalemia. Today the potassium is still elevated. I will use VELTASSA 16.8 mg x1 and we will monitor. 6. Type 2 diabetes. Continue with sliding scale. 7. Nutritional status. Continue with the same management. cc: Osman Jeffries MD
[2016-11-23] MEDS: PROTONIX IV SCH (15:25)
[2016-11-23] MEDS: PRAVACHOL PO SCH (21:22)
[2016-11-23] MEDS: SENOKOT PO SCH (21:24)
[2016-11-24] MEDS: CLINIMIX E 4.25%-5% SOLUTION 1,000 ML IV SCH ×3 (00:56→22:30)
[2016-11-24] MEDS: DUONEB (A & A) INH SCH ×6 (02:50→23:13)
[2016-11-24 04:06] LABS: ALLEN TEST YES; BE 16.4 mmoll (-3.0-3.0); BLOOD TYPE ARTERIAL; DRAW SITE R RADIAL; METHB 1.8 % (0.0-1.5); O2(CT) 12.4 mL/dL (15.0-23.0); PO2(98.6) 85 mmHg (60-100); SAMPLE BLOOD; SAO2 97.5 % (95.0-100.0); THB 9.3 g/dL (11.5-17.4); pH(98.6) 7.47 (7.35-7.45)
[2016-11-24 04:07] LABS: MODALITY BI PAP; PCO2(98.6) 58 mmHg (35-45)
[2016-11-24 05:42] LABS: BASO% 0.8 % (0.0-0.8); EOS# 0.08 X1000 (0.0-0.7); EOS% 1.1 % (0.0-10.0); HEMATOCRIT 25.7 % (37.0-47.0); HEMOGLOBIN 7.9 g/dL (12.0-16.0); IMM GRAN# 0.28 X1000 (0.0-0.04); IMM GRAN% 3.9 % (0.0-0.5); LYMPH# 1.26 X1000 (1.2-3.4); LYMPH% 17.3 % (20.5-51.1); MANUAL DIFF NEEDED? YES; MCH 26.6 PG (27-31); MCHC 30.7 g/dL (33-37); MCV 86.5 FL (81-99); MONO# 0.37 X1000 (0.11-0.59); MONO% 5.1 % (1.7-9.3); MPV 11.5 FL (7.4-10.4); NEUT% 71.8 % (42.2-75.2); PLT 159 X1000 (130-400); RBC 2.97 XMIL (4.2-5.4)
[2016-11-24 05:59] LABS: AGAP 10; BUN 59 mg/dL (8-22); CALCIUM 9.9 mg/dL (8.8-10.2); CHLORIDE 88 mmol/L (98-107); COSMO 288; POTASSIUM 4.8 mmol/L (3.5-5.1); SODIUM 134 mmol/L (136-145); TCO2 36 mmol/L (25-35)
[2016-11-24] MEDS: HUMULIN R SUBQ SCH ×5 (06:19→20:53)
[2016-11-24 06:44] LABS: BANDS 4 % (0-1); LYMPHS 18 % (21-51); MONO 4 % (1-9)
--- NOTE | 2016-11-24 08:35 | Diag Imaging Result Document ---
PROCEDURE NAME: CHEST-1 VIEW - 11/24/2016 SINGLE FRONTAL RADIOGRAPH OF THE CHEST: COMPARISON: 11/23/2016. FINDINGS: Right PICC line is stable. An NG tube projects below the diaphragm and is assumed to be in the stomach. Mild right basilar infiltrate and minimal atelectasis at the left lung base is essentially stable. No new consolidations are appreciated. Cardiac silhouette is stable. IMPRESSION: Essentially stable chest.
[2016-11-24] MEDS: LASIX IV SCH ×2 (08:36→20:33)
[2016-11-24] MEDS: CARDIZEM CD PO SCH (08:36)
[2016-11-24] MEDS: LACTULOSE PO SCH ×2 (08:36→20:52)
[2016-11-24] MEDS: NEXIUM PO SCH (08:36)
[2016-11-24] MEDS: PREDNISONE PO SCH (08:36)
[2016-11-24] MEDS: DULCOLAX PR SCH (08:36)
[2016-11-24] MEDS: MIRALAX PO SCH ×2 (08:36→22:29)
[2016-11-24] MEDS: HEPARIN SUBQ SCH ×2 (08:37→20:52)
[2016-11-24] MEDS: SEPTRA LIQUID PO SCH ×2 (08:37→20:51)
[2016-11-24] MEDS: ANUSOL-HC CREAM PR SCH ×2 (08:37→20:53)
[2016-11-24] MEDS: BREO ELLIPTA 100/25 MCG INH INH SCH (08:38)
--- NOTE | 2016-11-24 11:11 | PROGRESS NOTE ---
DATE: 11/24/2016 SUBJECTIVE: This patient self extubated a couple of days ago. She is still lethargic and not following commands. We are keeping this patient on the BiPAP machine and we will reintubate this patient again if we have to unless the family member, the son, disagrees with this or place this patient DNR level 1. OBJECTIVE: Vital Signs: Temperature 97.6 degrees, pulse 122, respiratory rate 38, blood pressure 126/57, oxygen saturation 96 on BiPAP 40% oxygen flow. HEENT: Head normocephalic. No trauma. PERRLA. Neck: Supple. No JVD. No masses. Central trachea. Chest: Decreased breath sounds at the bases with rhonchi bilaterally. No wheezing. Prolonged expiratory phase. Cardiovascular: RRR. No murmurs. Tachycardic. Abdomen: Soft. There are some bruises at the level of the lower abdomen likely related to treatment with Lovenox/heparin. No masses. Positive bowel sounds. Extremities: 2+ lower extremity edema. No clubbing. No cyanosis. Neurological: The patient is on BiPAP. She is sleepy/lethargic and she is not following commands. She localized with pain stimulation. LABORATORY: WBC 7.2, hemoglobin 7.9, hematocrit 25.7, platelets 159,000. Sodium 134, potassium 4.0, chloride 88, bicarbonate 36. BUN 59, creatinine 0.8, glucose 162, calcium 9.9. ASSESSMENT AND PLAN: 1. Acute on chronic respiratory failure. This patient was on mechanical ventilation but she self extubated. At this moment she is on a BiPAP machine and Pulmonary Department is following this patient closely. In the case that we need to reintubate the patient we will try to get a previous authorization from her son, we will continue to monitor. 2. Community-acquired pneumonia. Continue with the same management. 3. End-stage COPD. This patient has been evaluated by Pulmonary Department previously. For now we will continue with the same management. 4. Klebsiella urinary tract infection. This patient has been treated already for this condition. 5. Hyperkalemia. The potassium today is normal. We will continue to monitor. 6. Type 2 diabetes. Continue with sliding scale. This is controlled. 7. Nutritional status. Continue with the same management. cc: Osman Jeffries MD
[2016-11-24] MEDS: HALDOL IV PRN (13:40)
[2016-11-24] MEDS: SODIUM CHLORIDE 0.9% INJ SCH (13:45)
[2016-11-24] MEDS: PROTONIX IV SCH (13:45)
[2016-11-24] MEDS: SPIRIVA INH SCH (16:02)
--- NOTE | 2016-11-24 18:53 | PROGRESS NOTE ---
DATE: 11/24/2016 PRESENT ILLNESS: The patient is being treated for a right lower lobe pneumonia which appears to be clearing. The left lower lobe looks like it is atelectasis rather than pneumonia. MEDICATIONS: This is day 7 of treatment with trimethoprim sulfamethoxazole. PHYSICAL EXAMINATION: Vital Signs: Temperature is 98.6 degrees, pulse 115, respirations 25, blood pressure 142/65. General: This is a very lethargic chronically ill-appearing, middle-aged female. She seems to be having agonal respirations. Lungs: Clear to auscultation. Cardiovascular: Heart rate is rapid and regular. Abdomen: Soft and nontender. Legs: There is edema in the legs. They are not erythematous. LAB AND X-RAY: Chest x-ray shows a mild right basilar infiltrate and left basilar atelectasis. Patient's CBC shows a white count of 7270, hemoglobin 7.9 and platelet count 159,000. Blood gases show a pH of 7.47, a PO2 of 85 and a pCO2 of 58. Creatinine is 0.8. GFR is greater than 60. ASSESSMENT AND PLAN: Patient has pneumonia with effusion. I plan to continue the current antibiotic namely trimethoprim sulfamethoxazole. COMORBIDITIES: Include diabetes mellitus, COPD, obstructive sleep apnea, and obesity. cc: David Bro MD
[2016-11-24] MEDS: PRAVACHOL PO SCH (20:52)
[2016-11-24] MEDS: SENOKOT PO SCH (21:09)
[2016-11-25] MEDS: HALDOL IV PRN ×2 (02:21→15:01)
[2016-11-25] MEDS: DUONEB (A & A) INH SCH ×6 (03:07→23:07)
[2016-11-25 04:30] LABS: ALLEN TEST YES; BE 16.8 mmoll (-3.0-3.0); BLOOD TYPE ARTERIAL; DRAW SITE R RADIAL; METHB 2.9 % (0.0-1.5); MODALITY BI PAP; O2(CT) 9.6 mL/dL (15.0-23.0); PCO2(98.6) 52 mmHg (35-45); PO2(98.6) 101 mmHg (60-100); SAMPLE BLOOD; SAO2 98.9 % (95.0-100.0); THB 7.1 g/dL (11.5-17.4); pH(98.6) 7.51 (7.35-7.45)
[2016-11-25 05:16] LABS: BASO% 0.8 % (0.0-0.8); EOS# 0.05 X1000 (0.0-0.7); EOS% 0.7 % (0.0-10.0); HEMATOCRIT 25.3 % (37.0-47.0); HEMOGLOBIN 7.9 g/dL (12.0-16.0); IMM GRAN# 0.24 X1000 (0.0-0.04); IMM GRAN% 3.2 % (0.0-0.5); LYMPH# 1.32 X1000 (1.2-3.4); LYMPH% 17.5 % (20.5-51.1); MANUAL DIFF NEEDED? YES; MCH 26.8 PG (27-31); MCHC 31.2 g/dL (33-37); MCV 85.8 FL (81-99); MONO# 0.47 X1000 (0.11-0.59); MONO% 6.2 % (1.7-9.3); NEUT% 71.6 % (42.2-75.2); PLT 155 X1000 (130-400); RBC 2.95 XMIL (4.2-5.4)
[2016-11-25 05:28] LABS: BANDS 4 % (0-1); LYMPHS 20 % (21-51); MONO 6 % (1-9); NRBC 4 % (0-0); POLYCHROM OCCASIONAL
[2016-11-25 05:32] LABS: AGAP 12; BUN 57 mg/dL (8-22); CALCIUM 10.2 mg/dL (8.8-10.2); CHLORIDE 91 mmol/L (98-107); COSMO 292; POTASSIUM 4.6 mmol/L (3.5-5.1); SODIUM 137 mmol/L (136-145); TCO2 34 mmol/L (25-35)
[2016-11-25] MEDS: HUMULIN R SUBQ SCH ×4 (06:10→20:36)
[2016-11-25] MEDS: SPIRIVA INH SCH (07:39)
[2016-11-25] MEDS: BREO ELLIPTA 100/25 MCG INH INH SCH (07:40)
[2016-11-25] MEDS: MIRALAX PO SCH ×2 (08:15→20:33)
[2016-11-25] MEDS: DULCOLAX PR SCH (08:15)
[2016-11-25] MEDS: CARDIZEM CD PO SCH (08:15)
[2016-11-25] MEDS: PREDNISONE PO SCH (08:15)
[2016-11-25] MEDS: TYLENOL PO PRN (08:15)
[2016-11-25] MEDS: HEPARIN SUBQ SCH ×2 (08:15→20:34)
[2016-11-25] MEDS: NORCO-5 PO PRN ×2 (08:15→20:35)
[2016-11-25] MEDS: NEXIUM PO SCH (08:15)
[2016-11-25] MEDS: LASIX IV SCH ×2 (08:19→20:33)
[2016-11-25] MEDS: LACTULOSE PO SCH ×2 (08:19→20:34)
[2016-11-25] MEDS: SEPTRA LIQUID PO SCH ×2 (08:19→20:34)
[2016-11-25] MEDS: ANUSOL-HC CREAM PR SCH ×2 (08:19→20:33)
--- NOTE | 2016-11-25 09:09 | Diag Imaging Result Document ---
PROCEDURE NAME: CHEST-1 VIEW - 11/25/2016 PORTABLE CHEST X-RAY: COMPARISON: 11/24/2016. FINDINGS: Stable nasogastric tube and right PICC line in good position. Stable ill-defined right perihilar and apical infiltrate. The left lung remains clear. The heart size remains normal. IMPRESSION: No change from prior.
--- NOTE | 2016-11-25 12:48 | PROGRESS NOTE ---
DATE: 11/25/2016 SUBJECTIVE: This patient self extubated a few days ago. She still is on the BiPAP machine. Today she looks a little bit more alert. She is following commands. She is oriented x2. She is not oriented in time. No family members at the bedside. We will continue with the same management for now. OBJECTIVE: Vital signs: Temperature is 100.1, pulse 127, respiratory rate 37, oxygen saturation 93% on a BiPAP machine. HEENT: Head is normocephalic. No trauma. PERRLA. Neck: Supple. No JVD. No masses. Central trachea. Chest: Decreased breath sounds at the bases with rhonchi bilaterally. No wheezing, prolonged expiratory phase. Cardiovascular: Regular rate and rhythm. No murmurs. Tachycardic. Abdomen: Soft. There are some bruises at the level of the lower abdomen, likely related to treatment with heparin. No masses. Positive bowel sounds. Extremities: 2+ lower extremity edema. No clubbing. No cyanosis. Neurologic: The patient is sleepy but arousable. She is following commands. She is oriented x2. She is extremely weak. DIAGNOSTIC DATA: WBC is 7.5, hemoglobin 7.9, hematocrit 25.3, platelets 155, bands 4. Sodium 137, potassium 4.6, chloride 91, bicarbonate 34, BUN is 57, creatinine 0.8, glucose 136, calcium 10.2. ASSESSMENT AND PLAN: 1. Acute on chronic respiratory failure. This patient was on mechanical ventilation, but she self extubated. At this moment, she is on a BiPAP machine, and Pulmonary Department is following this patient closely. In the case that we need to reintubate this patient, we will need to try to get previous authorization from her son. But for now, we will continue to monitor. She is a little bit more alert today, and she is oriented x2 and following commands. 2. Community acquired pneumonia. Continue with the same management. 3. End stage chronic obstructive pulmonary disease. This patient has been evaluated by the Pulmonary Department previously. For now, we will continue with the same management. 4. Klebsiella urinary tract infection. This patient has been treated for this condition. 5. Hyperkalemia, resolved. 6. Type 2 diabetes. Continue with sliding scale. 7. Nutritional status. Continue with the same management. Critical care time is 35 minutes. cc: Osman Jeffries MD
[2016-11-25] MEDS: CARDIZEM PO SCH ×2 (13:34→16:31)
[2016-11-25] MEDS: PROTONIX IV SCH (15:01)
[2016-11-25] MEDS: SODIUM CHLORIDE 0.9% INJ SCH (15:01)
--- NOTE | 2016-11-25 15:28 | Diag Imaging Result Document ---
PROCEDURE NAME: CHEST-PORTABLE - 11/25/2016 PORTABLE CHEST X-RAY 11/25/2016 AT 1505 HOURS: COMPARISON: 0500 hours. FINDINGS: There is a nasogastric tube with the tip in the stomach, stable from prior. IMPRESSION: Nasogastric tube in stomach.
[2016-11-25] MEDS: CLINIMIX E 4.25%-5% SOLUTION 1,000 ML IV SCH (17:27)
[2016-11-25] MEDS: SENOKOT PO SCH (20:35)
[2016-11-25] MEDS: PRAVACHOL PO SCH (20:35)
[2016-11-26] MEDS: DUONEB (A & A) INH SCH ×6 (03:27→23:19)
[2016-11-26 04:43] LABS: ALLEN TEST YES; BE 16.3 mmoll (-3.0-3.0); BLOOD TYPE ARTERIAL; DRAW SITE R RADIAL; METHB 1.9 % (0.0-1.5); MODALITY BI PAP; O2(CT) 10.3 mL/dL (15.0-23.0); PCO2(98.6) 50 mmHg (35-45); PO2(98.6) 76 mmHg (60-100); SAMPLE BLOOD; THB 7.7 g/dL (11.5-17.4); pH(98.6) 7.52 (7.35-7.45)
[2016-11-26] MEDS: HUMULIN R SUBQ SCH ×4 (06:30→20:51)
[2016-11-26] MEDS: SPIRIVA INH SCH (07:25)
[2016-11-26 07:26] LABS: AGAP 11; BUN 53 mg/dL (8-22); CALCIUM 9.7 mg/dL (8.8-10.2); CHLORIDE 87 mmol/L (98-107); COSMO 279; POTASSIUM 4.9 mmol/L (3.5-5.1); SODIUM 131 mmol/L (136-145); TCO2 33 mmol/L (25-35)
[2016-11-26 07:32] LABS: EOS# 0.14 X1000 (0.0-0.7); EOS% 1.8 % (0.0-10.0); HEMATOCRIT 24.5 % (37.0-47.0); HEMOGLOBIN 7.5 g/dL (12.0-16.0); IMM GRAN# 0.18 X1000 (0.0-0.04); IMM GRAN% 2.4 % (0.0-0.5); LYMPH# 1.65 X1000 (1.2-3.4); LYMPH% 21.6 % (20.5-51.1); MANUAL DIFF NEEDED? YES; MCH 26.4 PG (27-31); MCHC 30.6 g/dL (33-37); MCV 86.3 FL (81-99); MONO# 0.59 X1000 (0.11-0.59); MONO% 7.7 % (1.7-9.3); MPV 11.5 FL (7.4-10.4); NEUT% 65.5 % (42.2-75.2); PLT 165 X1000 (130-400); RBC 2.84 XMIL (4.2-5.4)
[2016-11-26] MEDS: LASIX IV SCH ×2 (08:37→19:30)
[2016-11-26] MEDS: CARDIZEM PO SCH ×3 (08:37→19:30)
[2016-11-26] MEDS: NORCO-5 PO PRN ×2 (08:37→21:08)
[2016-11-26] MEDS: PREDNISONE PO SCH (08:37)
[2016-11-26] MEDS: SEPTRA LIQUID PO SCH ×2 (08:38→21:09)
[2016-11-26] MEDS: HEPARIN SUBQ SCH ×2 (08:38→21:08)
[2016-11-26] MEDS: LACTULOSE PO SCH ×2 (08:38→21:08)
[2016-11-26] MEDS: DULCOLAX PR SCH (08:38)
[2016-11-26] MEDS: ANUSOL-HC CREAM PR SCH ×2 (08:39→21:08)
[2016-11-26] MEDS: MIRALAX PO SCH ×2 (08:39→21:08)
[2016-11-26 09:29] LABS: LYMPHS 14 % (21-51); MONO 4 % (1-9); NRBC 7 % (0-0)
--- NOTE | 2016-11-26 10:10 | Diag Imaging Result Document ---
PROCEDURE NAME: CHEST-1 VIEW - 11/26/2016 PORTABLE CHEST X-RAY, 11/26/2016: COMPARISON: 11/25/2016. FINDINGS: The nasogastric tube has been pulled up somewhat and the proximal side hole is probably in the distal esophagus. The tip is still in the stomach. Stable right PICC line. There is continued improvement in the ill-defined right upper lobe infiltrate. No new infiltrates. Heart size is grossly normal. IMPRESSION: 1. Nasogastric tube has been pulled back slightly. 2. Improvement in the right upper lobe infiltrate/pneumonia.
[2016-11-26] MEDS: HALDOL IV PRN (10:27)
[2016-11-26] MEDS: BREO ELLIPTA 100/25 MCG INH INH SCH (10:54)
[2016-11-26] MEDS: CLINIMIX E 4.25%-5% SOLUTION 1,000 ML IV SCH (13:05)
--- NOTE | 2016-11-26 15:29 | PROGRESS NOTE ---
DATE: 11/26/2016 SUBJECTIVE: This patient is about the same compared with yesterday. She is at this moment on a Venturi mask and the oxygen saturation has been above 90. She has been alert on and off and oriented on and off as well. She is following commands on and off. No family members at the bedside. We will continue with the same management for now. OBJECTIVE: Vital Signs: Temperature 99 degrees, pulse 12, respiratory rate 30, blood pressure 146/56, oxygen saturation 95% on a Venturi mask 50% oxygen flow. HEENT: Head normocephalic. No trauma. PERRLA. Neck: Supple. No JVD. No masses. Central trachea. Chest: Decreased breath sounds at the bases and rhonchi bilaterally. No wheezing. Prolonged expiatory phase. Cardiovascular: RRR. No murmurs. Tachycardic. Abdomen: Soft. There are some bruises at the level of the lower abdomen likely related to treatment with heparin subcutaneously. No masses. Positive bowel sounds. Extremities: There is 2+ lower extremity edema. No clubbing. No cyanosis. Neurological: The patient is sleepy but arousable. She is following commands on and off. She is also oriented on and off. She is extremely weak. LABORATORY: WBC 7.6, hemoglobin 7.5, hematocrit 24.5, platelet 165,000. Sodium 131, potassium 4.9, chloride 87, bicarbonate 33, BUN 53, glucose 129, calcium 9.7. ASSESSMENT AND PLAN: 1. Acute on chronic respiratory failure. This patient was on mechanical ventilation but she self extubated. At this moment she is on a Venturi mask and the oxygen saturation has been above 90. We will continue with the same management. Pulmonary department is following this patient. 2. Community-acquired pneumonia. Continue with the same management. 3. End-stage chronic obstructive pulmonary disease. This patient has been evaluated by pulmonary department previously. For now will continue with the same management. 4. Klebsiella urinary tract infection. This patient has been treated for this condition. 5. Hyperkalemia, resolved. 6. Mild hyponatremia. Will monitor. 7. Type 2 diabetes. Continue with sliding scale. 8. Nutritional status. This patient is getting tube feedings and Clinimix as well. 9. Physical deconditioning. This patient is in physical therapy. CRITICAL CARE TIME: 35 minutes. cc: Osman Jeffries MD
[2016-11-26] MEDS: SODIUM CHLORIDE 0.9% INJ SCH (15:59)
[2016-11-26] MEDS: PROTONIX IV SCH (15:59)
[2016-11-26] MEDS: PRAVACHOL PO SCH (21:08)
[2016-11-26] MEDS: SENOKOT PO SCH (21:08)
[2016-11-27] MEDS: HALDOL IV PRN (02:57)
[2016-11-27] MEDS: DUONEB (A & A) INH SCH ×6 (03:33→23:13)
[2016-11-27 04:49] LABS: BASO% 1.5 % (0.0-0.8); EOS# 0.09 X1000 (0.0-0.7); HEMATOCRIT 24.6 % (37.0-47.0); HEMOGLOBIN 7.6 g/dL (12.0-16.0); IMM GRAN# 0.26 X1000 (0.0-0.04); IMM GRAN% 2.8 % (0.0-0.5); LYMPH# 2.42 X1000 (1.2-3.4); MANUAL DIFF NEEDED? YES; MCH 26.4 PG (27-31); MCHC 30.9 g/dL (33-37); MCV 85.4 FL (81-99); MONO# 0.75 X1000 (0.11-0.59); MONO% 8.1 % (1.7-9.3); MPV 10.6 FL (7.4-10.4); NEUT% 60.6 % (42.2-75.2); PLT 190 X1000 (130-400); RBC 2.88 XMIL (4.2-5.4)
[2016-11-27 04:58] LABS: ALLEN TEST YES; BE 14.1 mmoll (-3.0-3.0); BLOOD TYPE ARTERIAL; DRAW SITE R RADIAL; METHB 2.1 % (0.0-1.5); MODALITY BI PAP; O2(CT) 10.5 mL/dL (15.0-23.0); PO2(98.6) 81 mmHg (60-100); SAMPLE BLOOD; SAO2 97.9 % (95.0-100.0); THB 7.8 g/dL (11.5-17.4); pH(98.6) 7.49 (7.35-7.45)
[2016-11-27 04:59] LABS: PCO2(98.6) 51 mmHg (35-45)
[2016-11-27 05:34] LABS: AGAP 12; BUN 52 mg/dL (8-22); CALCIUM 9.5 mg/dL (8.8-10.2); CHLORIDE 85 mmol/L (98-107); COSMO 274; POTASSIUM 5.1 mmol/L (3.5-5.1); SODIUM 128 mmol/L (136-145); TCO2 31 mmol/L (25-35)
[2016-11-27] MEDS: HUMULIN R SUBQ SCH ×4 (06:01→20:25)
[2016-11-27 06:56] LABS: LYMPHS 20 % (21-51); MONO 2 % (1-9); NRBC 4 % (0-0)
[2016-11-27 06:57] LABS: BANDS 2 % (0-1); HYPOCHROM 1+
[2016-11-27] MEDS: LASIX IV SCH ×2 (07:42→20:24)
[2016-11-27] MEDS: SPIRIVA INH SCH (07:52)
--- NOTE | 2016-11-27 08:08 | Diag Imaging Result Document ---
PROCEDURE NAME: CHEST-1 VIEW - 11/27/2016 AP PORTABLE CHEST, 11/27/2016 AT 0500 HOURS: FINDINGS: There is a PICC line on the right with its tip just above the right atrium. There is an NG tube which passes below the diaphragm. There is ill-defined opacity in the right base and apex. To some extent this is also true of the left base. This has not changed significantly since 11/26/2016. There has been considerable improvement particularly with regard to the right apex since 11/25/2016. IMPRESSION: Residual pulmonary edema or pneumonia on the right.
[2016-11-27] MEDS: HEPARIN SUBQ SCH ×2 (08:50→20:24)
[2016-11-27] MEDS: ANUSOL-HC CREAM PR SCH ×2 (08:50→20:25)
[2016-11-27] MEDS: CARDIZEM PO SCH ×3 (08:50→18:14)
[2016-11-27] MEDS: PREDNISONE PO SCH (08:50)
[2016-11-27] MEDS: SEPTRA LIQUID PO SCH ×2 (08:50→20:25)
[2016-11-27] MEDS: MIRALAX PO SCH ×2 (09:00→20:23)
[2016-11-27] MEDS: BREO ELLIPTA 100/25 MCG INH INH SCH (09:00)
[2016-11-27] MEDS: NS 1,000 ML IV SCH ×2 (09:44→22:54)
[2016-11-27] MEDS: CLINIMIX E 4.25%-5% SOLUTION 1,000 ML IV SCH (09:44)
[2016-11-27] MEDS: DULCOLAX PR SCH (10:39)
[2016-11-27] MEDS: LACTULOSE PO SCH ×2 (10:41→20:26)
--- NOTE | 2016-11-27 12:42 | PROGRESS NOTE ---
DATE: 11/27/2016 SUBJECTIVE: This patient is about the same compared with yesterday. At this moment she is on a BiPAP machine. She is alert and she is following commands on and off, no family members at the bedside. I talked to the nurse to see if we can call her son to talk about goals of care. Probably I will talk to him today. For now we will continue the same management. This patient has been having loose bowel movements multiple times a day, will stop the stool softener and I will hydrate this patient with normal saline. OBJECTIVE: Vital Signs: Temperature 97.4 degrees, pulse 114, respiratory rate 28. Blood pressure 140/63, O2 saturation 94% on BiPAP oxygen on 40% oxygen flow. HEENT: Head normocephalic. No trauma. PERRLA. Neck: Supple. No JVD. No masses. Central trachea. Chest: Decreased breath sounds at the bases with rhonchi bilaterally. No wheezing, prolonged phase. Cardiovascular: RRR. No murmurs. Tachycardic. Abdomen: Soft. There are some bruises at the level of the lower abdomen likely related with heparin treatment. No masses. Positive bowel sounds. Extremities: 1+ lower extremity edema. No clubbing. No cyanosis. Neurological: The patient is sleepy but arousable. She is following commands on and off and she is also oriented in person. She is extremely weak. LABORATORY: WBC 9.3, hemoglobin 7.6, hematocrit 24.6, platelets 190,000, sodium 128, potassium 5.1, chloride 85, bicarbonate 31, BUN 58, creatinine 0.8, glucose 149, calcium 9.5. ASSESSMENT AND PLAN: 1. Acute on chronic respiratory failure. This patient was on mechanical ventilation but she self extubated, now she is on a BiPAP machine, pulmonary department is following this patient. We will continue with the same management for now. 2. Community-acquired pneumonia. Continue with the same treatment. 3. End-stage chronic obstructive pulmonary disease. This patient has been evaluated by pulmonary department previously. For now will continue with the same management. 4. Klebsiella urinary tract infection. This patient has been treated for this condition. 5. Mild hypernatremia, this patient was placed on D5W yesterday. The blood sodium decreased from 149-146, I will continue with the same management for now. 6. Nutritional status. This patient is getting tube feedings and Clinimix as well. 7. Physical deconditioning. This patient is on physical therapy. 8. Diarrhea. I will stop all the stool softer and I will start this patient on fluids. CRITICAL CARE TIME: 35 minutes. cc: Osman Jeffries MD
[2016-11-27] MEDS: PROTONIX IV SCH (14:43)
[2016-11-27] MEDS: SODIUM CHLORIDE 0.9% INJ SCH (14:43)
[2016-11-27] MEDS ORDERED: CUBICIN (FOR INPATIENT USE) 500 MG in NS 100 ML IV SCH (18:00)
--- NOTE | 2016-11-27 18:35 | PROGRESS NOTE ---
DATE: 11/27/2016 PRESENT ILLNESS: The patient is being treated for a right lung pneumonia, which is improving. MEDICATIONS: This is day 10 of treatment with trimethoprim sulfamethoxazole. PHYSICAL EXAMINATION: Vital Signs: Temperature is 98.3 degrees, pulse 115, respirations 27, blood pressure 115/93. General: This is a chronically ill-appearing middle-aged female. She is in no acute distress. Head, eyes, ears, nose, and throat: She did not respond to verbal stimuli. Her face was swollen. Neck: No meningismus. Lungs: Clear to auscultation. Cardiovascular: Regular heart rate. Abdomen: Soft and nontender. LAB AND X-RAY: Chest x-ray shows a right lung opacity which is clearing. The patient's CBC shows a white count of 9300, hemoglobin 7.6, and platelet count 190,000. Patient's blood gases show a pH of 7.49, a pO2 of 81, pCO2 of 51, creatinine 0.8. GFR is greater than 60. ASSESSMENT AND PLAN: The patient has pneumonia. I plan to continue trimethoprim sulfamethoxazole. COMORBIDITIES: Include diabetes mellitus, chronic obstructive pulmonary disease, obstructive sleep apnea, and obesity. cc: David Bro MD
[2016-11-27] MEDS: SENOKOT PO SCH (20:24)
[2016-11-28] MEDS: DUONEB (A & A) INH SCH ×6 (03:43→22:58)
[2016-11-28 04:50] LABS: ALLEN TEST YES; BE 11.5 mmoll (-3.0-3.0); BLOOD TYPE ARTERIAL; DRAW SITE R RADIAL; O2(CT) 10.2 mL/dL (15.0-23.0); PCO2(98.6) 50 mmHg (35-45); PO2(98.6) 78 mmHg (60-100); SAMPLE BLOOD; THB 7.6 g/dL (11.5-17.4); pH(98.6) 7.47 (7.35-7.45)
[2016-11-28 04:51] LABS: MODALITY BI PAP
[2016-11-28 05:07] LABS: BASO% 1.2 % (0.0-0.8); EOS# 0.05 X1000 (0.0-0.7); EOS% 0.5 % (0.0-10.0); HEMATOCRIT 23.9 % (37.0-47.0); HEMOGLOBIN 7.5 g/dL (12.0-16.0); IMM GRAN# 0.23 X1000 (0.0-0.04); IMM GRAN% 2.3 % (0.0-0.5); LYMPH% 21.2 % (20.5-51.1); MANUAL DIFF NEEDED? YES; MCH 27.2 PG (27-31); MCHC 31.4 g/dL (33-37); MCV 86.6 FL (81-99); MONO# 0.98 X1000 (0.11-0.59); MONO% 9.9 % (1.7-9.3); MPV 10.7 FL (7.4-10.4); NEUT% 64.9 % (42.2-75.2); PLT 211 X1000 (130-400); RBC 2.76 XMIL (4.2-5.4)
[2016-11-28 05:26] LABS: AGAP 12; BUN 42 mg/dL (8-22); CALCIUM 9.2 mg/dL (8.8-10.2); CHLORIDE 92 mmol/L (98-107); COSMO 281; POTASSIUM 4.5 mmol/L (3.5-5.1); SODIUM 135 mmol/L (136-145); TCO2 31 mmol/L (25-35)
[2016-11-28] MEDS: HUMULIN R SUBQ SCH ×4 (06:08→20:51)
[2016-11-28] MEDS: SPIRIVA INH SCH (07:30)
--- NOTE | 2016-11-28 07:38 | Diag Imaging Result Document ---
PROCEDURE NAME: CHEST-1 VIEW - 11/28/2016 PORTABLE CHEST X-RAY: COMPARISON: 11/27/2016. FINDINGS: Stable nasogastric tube and right PICC line. Stable hazy infiltrates in the right apex and lung bases. No new infiltrates. Heart size remains normal. IMPRESSION: No change from prior.
[2016-11-28 07:59] LABS: BANDS 8 % (0-1); LYMPHS 14 % (21-51); MONO 6 % (1-9); NRBC 6 % (0-0)
[2016-11-28] MEDS: LACTULOSE PO SCH (08:02)
[2016-11-28] MEDS: LASIX IV SCH ×2 (08:03→20:51)
[2016-11-28] MEDS: PREDNISONE PO SCH (08:03)
[2016-11-28] MEDS: HEPARIN SUBQ SCH ×2 (08:03→20:51)
[2016-11-28] MEDS: DULCOLAX PR SCH (08:03)
[2016-11-28] MEDS: CARDIZEM PO SCH ×3 (08:03→16:08)
[2016-11-28] MEDS: SEPTRA LIQUID PO SCH (08:03)
[2016-11-28] MEDS: ANUSOL-HC CREAM PR SCH ×2 (08:04→22:00)
[2016-11-28] MEDS: MIRALAX PO SCH (08:04)
[2016-11-28] MEDS: BREO ELLIPTA 100/25 MCG INH INH SCH (09:00)
[2016-11-28] MEDS: NS 1,000 ML IV SCH (11:16)
--- NOTE | 2016-11-28 12:34 | PROGRESS NOTE ---
DATE: 11/28/2016 SUBJECTIVE: This patient is about the same. No new events overnight. She is right now on a Venturi mask. I just had a conversation with her son. We have been talking about sending this patient to either LTAC or home with or without hospice, but we think that at this point hospice is going to be appropriate. OBJECTIVE: Vital Signs: Temperature 98.9, pulse 122, respiratory rate 32, blood pressure 128/79, oxygen saturation 96 on 50% oxygen flow Venturi mask. HEENT: Head normocephalic. No trauma. PERRLA. Neck: Supple. No JVD. No masses. Central trachea. Chest: Decreased breath sounds at the bases with rhonchi bilaterally. No wheezing. Prolonged expiratory phase. Cardiovascular: RRR. No murmurs. Tachycardic. Abdomen: Soft. There are some bruises at the level of the lower abdomen, likely related with heparin treatment. No masses. Positive bowel sounds. Extremities: There is 1+ lower extremity edema. No clubbing. No cyanosis. Neurological: The patient is sleepy but arousable. She is having shortness of breath. She is following commands on and off. LABORATORY: WBC 9.9, hemoglobin 7.5, hematocrit 23.9, platelets 211. Sodium 135, potassium 4.5, chloride 92, bicarbonate 31, BUN 42, creatinine 0.8, glucose 109, calcium 9.2. ASSESSMENT AND PLAN: 1. Acute on chronic respiratory failure. This patient was on mechanical ventilation but she self extubated. Now she is on a Venturi mask on and off and BiPAP machine on and off as well. Pulmonary department is following this patient. I had a conversation with the son and probably keep this patient will benefit from hospice at this moment, I will talk to the psych social worker to see what the options are. 2. Community-acquired pneumonia. Continue with the same management. 3. End-stage chronic obstructive pulmonary disease. This patient has been evaluated by pulmonary department previously. For now, we will continue with the same management. 4. Klebsiella urinary tract infection. This patient has been treated for this condition. 5. Nutritional status. This patient is getting tube feedings and Clinimix as well. 6. Physical deconditioning. This patient is on physical therapy. 7. Diarrhea. We stopped all of the stool softeners and we started this patient on fluids. CRITICAL CARE TIME: 40 minutes. cc: Osman Jeffries MD
[2016-11-28 12:55] LABS: MAGNESIUM 2.2 mg/dL (1.5-2.7)
[2016-11-28] MEDS: SODIUM CHLORIDE 0.9% INJ SCH (14:06)
[2016-11-28] MEDS: PROTONIX IV SCH (14:06)
--- NOTE | 2016-11-28 18:28 | PROGRESS NOTE ---
DATE: 11/28/2016 PRESENT ILLNESS: The patient is being treated for bilateral pneumonia. MEDICATIONS: This is day 11 of treatment with trimethoprim sulfamethoxazole. PHYSICAL EXAMINATION: Vital Signs: Temperature is 98.2, pulse 114, respirations 28, blood pressure 98/53. Generally: This is an ill-appearing, middle-aged female. Today, she is much more alert. She talks and answers questions and follows requests to move her extremities. Lungs: Clear to auscultation. Cardiovascular: Regular heart rate. Abdomen: Soft and nontender. LAB AND X-RAY: Chest x-ray shows bilateral infiltrates. CBC shows a white count of 9900, hemoglobin 7.5 and platelet count 211,000. The blood gases show a pH of 7.47, pO2 of 78, pCO2 of 50, creatinine 0.8. GFR is greater than 60. ASSESSMENT AND PLAN: The patient has pneumonia. I plan to continue her current antibiotic, namely trimethoprim sulfamethoxazole. COMORBIDITIES: Include diabetes mellitus, COPD, obstructive sleep apnea and obesity. cc: David Bro MD
[2016-11-28] MEDS: HALDOL IV PRN (18:32)
[2016-11-29] MEDS: LACTULOSE PO SCH ×2 (00:34→09:46)
[2016-11-29] MEDS: SENOKOT PO SCH (00:35)
[2016-11-29] MEDS: MIRALAX PO SCH ×2 (00:35→09:46)
[2016-11-29] MEDS: NS 1,000 ML IV SCH (00:37)
[2016-11-29] MEDS: SEPTRA LIQUID PO SCH ×2 (00:38→08:14)
[2016-11-29] MEDS: HALDOL IV PRN (01:02)
[2016-11-29] MEDS: DUONEB (A & A) INH SCH ×4 (03:50→15:29)
[2016-11-29 05:08] LABS: ALLEN TEST YES; BE 9.8 mmoll (-3.0-3.0); BLOOD TYPE ARTERIAL; DRAW SITE R RADIAL; O2(CT) 9.7 mL/dL (15.0-23.0); PCO2(98.6) 30 mmHg (35-45); PO2(98.6) 182 mmHg (60-100); SAMPLE BLOOD; SAO2 100.6 % (95.0-100.0); THB 6.8 g/dL (11.5-17.4)
[2016-11-29 05:10] LABS: MODALITY VENTIMASK; pH(98.6) 7.63 (7.35-7.45)
--- NOTE | 2016-11-29 06:24 | Diag Imaging Result Document ---
PROCEDURE NAME: CHEST-1 VIEW - 11/29/2016 PORTABLE CHEST: COMPARISON: Compared to 11/28/2016. FINDINGS: No change in the right-sided PICC line or in the nasogastric tube. The heart is not enlarged. The vessels are not distended. No consolidation Questionable small infiltrates in the right costophrenic angle and right apex. The overall appearance is quite similar to that of the prior exam. IMPRESSION: Stable chest.
[2016-11-29] MEDS: HUMULIN R SUBQ SCH ×4 (06:29→16:02)
[2016-11-29 06:37] LABS: BASO% 0.6 % (0.0-0.8); EOS# 0.06 X1000 (0.0-0.7); EOS% 0.7 % (0.0-10.0); HEMATOCRIT 21.9 % (37.0-47.0); HEMOGLOBIN 6.5 g/dL (12.0-16.0); IMM GRAN# 0.19 X1000 (0.0-0.04); IMM GRAN% 2.2 % (0.0-0.5); LYMPH# 2.08 X1000 (1.2-3.4); LYMPH% 23.7 % (20.5-51.1); MANUAL DIFF NEEDED? YES; MCH 26.6 PG (27-31); MCHC 29.7 g/dL (33-37); MCV 89.8 FL (81-99); MONO# 0.97 X1000 (0.11-0.59); NEUT% 61.8 % (42.2-75.2); PLT 194 X1000 (130-400); RBC 2.44 XMIL (4.2-5.4)
[2016-11-29 07:01] LABS: AGAP 10; BANDS 4 % (0-1); BUN 27 mg/dL (8-22); CHLORIDE 104 mmol/L (98-107); COSMO 289; LYMPHS 20 % (21-51); MONO 12 % (1-9); POLYCHROM OCCASIONAL; POTASSIUM 3.9 mmol/L (3.5-5.1); SODIUM 141 mmol/L (136-145); TCO2 27 mmol/L (25-35)
[2016-11-29] MEDS: SPIRIVA INH SCH (07:25)
[2016-11-29 07:28] LABS: CALCIUM 7.6 mg/dL (8.8-10.2)
[2016-11-29] MEDS: HEPARIN SUBQ SCH (08:14)
[2016-11-29] MEDS: LASIX IV SCH (08:14)
[2016-11-29] MEDS: CARDIZEM PO SCH ×3 (08:15→16:03)
[2016-11-29] MEDS: PREDNISONE PO SCH (08:15)
[2016-11-29] MEDS: DULCOLAX PR SCH (09:45)
[2016-11-29] MEDS: ANUSOL-HC CREAM PR SCH (12:57)
[2016-11-29] MEDS: PROTONIX IV SCH (14:39)
[2016-11-29] MEDS: SODIUM CHLORIDE 0.9% INJ SCH (14:39)
[2016-11-29 16:24] VITALS: BP 142/59
[2016-11-29] MEDS ORDERED: DILAUDID IV PRN (17:29)
--- NOTE | 2016-11-30 07:39 | DISCHARGE SUMMARY ---
ADMISSION DATE: 11/02/2016 DISCHARGE DATE: 11/29/2016 DISPOSITION: The patient is being transitioned to inpatient hospice. CONSULTATIONS: Dr. David Bro with infectious disease, Dr. Lange with pulmonology, palliative care. DISCHARGE DIAGNOSES: 1. Acute on chronic respiratory failure. Patient required mechanical ventilation but self- extubated. Now requiring Ventimask on and off, and BiPAP machine on and off as well. Palliative care along with Dr. Cardoza have spoke with the son extensively. Today, they have decided to go to inpatient hospice. 2. Community-acquired pneumonia. 3. End-stage chronic obstructive pulmonary disease. Patient and family have decided for inpatient hospice. 4. Klebsiella urinary tract infection. Patient has received treatment for this condition, resolved. 5. Nutritional status. The patient had been undergoing tube feedings as well as Clinimix. Again, being discharged to inpatient hospice. 6. Physical deconditioning. 7. Diarrhea. HOSPITAL COURSE: Briefly, Ms. Mendoza is a 61-year-old, female who is a resident of [facility] who has been in and out of the hospital since July. She became extremely confused, not very responsive at the rehabilitation center. Daughter was told that the patient had pneumonia but it was viral and that they did not treat it with any antibiotics. However, she continued to be extremely altered. On the day of her admission, she was just not very responsive. She was extremely weak, was not able to get out of bed so at her request, the patient was sent to the emergency room where her blood pressure dropped from the 110s/70s-80s over 50s. She had a temperature of 99. Chest x-ray showed mild right lung infiltrates. Her white count was 9. The patient was admitted with altered mental status secondary to toxic metabolic encephalopathy due to underlying UTI as well as acute kidney injury and ventilatory failure. PCO2 on the ABG was 53 but the patient chronically retains CO2. She was also in an edematous state. Pulmonology was consulted. The patient underwent a chest CT that showed severe COPD, multilobar infiltrate, pneumonia on the right, trace right pleural effusion, severe fatty liver. Palliative care was consulted. They met with her and her son, Caitlin Mendoza, and a sister to discuss goals of care. Patient continued to have altered mental status as well as shortness of breath. On 11/16/2016, the patient was found to be in acute respiratory distress. A code blue was called. The patient was intubated and moved to the ICU. Again, palliative care met with Ms. Mendoza's son to discuss her goals of care. Because she remained intubated in the ICU, they decided to make her DNR level 2. He did not want CPR or defibrillation, or any medications to increase her blood pressure or to stimulate her heart. As per Ms. Mendoza's advanced directive, she was to be left on mechanical ventilation for 2 weeks and if not showing any signs of improvement, then she wanted to be compassionately extubated. The son did want to honor that wish. He did not want any long-term aggressive measures done. He did not want a trach or a PEG. She remained several days in the ICU, intubated. Patient did self extubate. They chose not to reintubate. She was placed on BiPAP. Again, Dr. Cardoza had the conversation with the son and they made the decision to change the patient over to inpatient hospice as she was unable to come off the Ventimask and/or BiPAP. They do not wish for her to be intubated again. Patient will be transitioned to inpatient hospice. Dictated by NELLY Fernandes for Osman Jeffries MD cc: Osman Jeffries MD
== END 2016-11-29 20:09 | disposition hospice, inpatient (51) ==
LOC: EDBD → ED 16:32 → 3N 21:14 → SUATTDRO 21:14 → 3N 11-14 07:45 → ICU 11-16 10:47 → 3N 11-29 18:59
PROVIDERS: ATTEND Internal Medicine

== ENCOUNTER 2016-11-29 20:10 | Inpatient (IN) ==
[2016-11-29] MEDS ORDERED: ATIVAN PO PRN (20:33)
[2016-11-29] MEDS ORDERED: ZOFRAN IV PRN (20:34)
[2016-11-29] MEDS ORDERED: HALDOL IV PRN (20:34)
[2016-11-29] MEDS ORDERED: DULCOLAX PR PRN (20:43)
[2016-11-29] MEDS ORDERED: CALMOSEPTINE OINTMENT TOP PRN (20:44)
[2016-11-29] MEDS: DILAUDID IV PRN (21:05)
[2016-11-29] MEDS: LASIX IV SCH (21:06)
[2016-11-29] MEDS: DUONEB (A & A) INH SCH (23:02)
[2016-11-29] MEDS: ATIVAN IV PRN (23:53)
[2016-11-30] MEDS: ANUSOL-HC CREAM PR SCH ×2 (03:16→10:33)
[2016-11-30] MEDS: DILAUDID IV PRN ×4 (03:17→13:37)
[2016-11-30] MEDS: DUONEB (A & A) INH SCH ×3 (03:24→11:29)
[2016-11-30 09:26] VITALS: BP 80/44
[2016-11-30] MEDS: LASIX IV SCH (10:32)
[2016-11-30] MEDS: ATROPINE 1 % OPHTH SOLN MISC PRN ×2 (10:32→13:38)
[2016-11-30] MEDS: ATIVAN IV PRN ×2 (11:20→15:28)
--- NOTE | 2016-11-30 14:14 | PROGRESS NOTE ---
DATE: 11/30/2016 This patient has been admitted to inpatient hospice under the following diagnoses: 1. Acute on chronic respiratory failure. 2. Community-acquired pneumonia. 3. End-stage COPD. 4. Urinary tract infection. 5. Physical deconditioning. 6. Obesity. Family members at the bedside. This patient is having high heart rate and low respiratory rate, she looks comfortable. PHYSICAL EXAM: Temperature 98.5 degrees, pulse 118, respiratory rate 10, blood pressure 80/44, O2 saturation 87 on a Venturi mask.HEENT: Head normocephalic. No trauma. PERRLA. Neck: Supple. No JVD. No masses. Central trachea. Chest: Coarse breath sounds globally, decreased air entry bilaterally. Prolonged expiatory phase. Rhonchi bilaterally as well mostly at the bases. Cardiovascular: RRR. Distant sounds. Tachycardic. Abdomen: Patient has some bruises at the level of the lower abdomen related with heparin treatment. Extremities: 1+ lower extremity edema. Neurological examination: This patient is lethargic. Overall, this patient has poor prognosis. She is at this moment inpatient hospice. cc: Osman Jeffries MD
[2016-11-30] MEDS ORDERED: SODIUM CHLORIDE 0.9% INJ SCH (15:00)
[2016-11-30] MEDS ORDERED: PROTONIX IV SCH (15:00)
--- NOTE | 2016-12-01 02:26 | PROGRESS NOTE ---
DATE: 11/30/2016 TIME OF : 4:52 p.m. Family at the bedside. No cardiac or respiratory activity. Patient had acute on chronic respiratory failure, community-acquired pneumonia, end-stage COPD, urinary tract infection, physical deconditioning, and obesity. She was pronounced at 4:52. cc: Jame Young MD
== END 2016-11-30 16:52 | disposition expired ==
LOC: 3N 20:10
PROVIDERS: ATTEND Internal Medicine